=== PATIENT | female | born 1955 | race Caucasian/White ===

== ENCOUNTER → 2019-08-13 12:19 | Outpatient (BNVA) | payer MEDICARE, MEDICAID, SELFPAY | PROVIDERS: Visit Provider Psychiatry & Neurology Psychiatry | DX: E63.9 Nutritional deficiency, unspecified (principal); G47.00 Insomnia, unspecified; F39 Unspecified mood [affective] disorder; G43.709 Chronic migraine without aura, not intractable, without status migrainosus; F51.04 Psychophysiologic insomnia; F33.1 Major depressive disorder, recurrent, moderate; F51.01 Primary insomnia; F41.9 Anxiety disorder, unspecified; F09 Unspecified mental disorder due to known physiological condition; F41.1 Generalized anxiety disorder | CPT/HCPCS: 99205 ==

== ENCOUNTER 2019-08-16 17:21 | Inpatient (IN) | payer MEDICARE, MEDICAID, SELFPAY ==
[2019-08-16 17:22] VITALS: BMI 31.8
[2019-08-16 17:27] VITALS: BP 129/70; PULSE 96; RESP 16; TEMP 36.8; O2SAT 99
--- NOTE | 2019-08-16 17:33 | W.ED.CHESTPA ---
Documented by User: Ru White DO 08/16/19 17:35 HPI - Chest Pain General: Chief Complaint: Chest Pain Stated Complaint: CHEST PAIN Time Seen by Provider: 08/16/19 17:23 History of Present Illness: MD complaint: chest pain and chest heaviness Pertinent past history: coronary artery disease Onset (ago): hour(s) Timing of current episode: constant and now resolved Prior episodes: Yes Onset: during rest Pain location: substernal and left chest Pain radiation: left arm and back Quality: tightness, aching and heaviness Exacerbating factors: nothing Associated symptoms: Reports diaphoresis, dyspnea and nausea Treatment prior to arrival: other (ibuprofen) Review of Systems General: Reports: 10 or more systems reviewed and unremarkable except in HPI and below Const: Reports: diaphoresis Card: Reports: chest pain Resp: Reports: dyspnea GI: Reports: nausea PFSH ED PFSH: Medical History Tachycardia Surgical History H/O section x2 H/O rotator cuff surgery Previous back surgery L4-L5 Family History Father Dementia Stroke Social History Smoking and tobacco status: former smoker Second hand smoke exposure: No Alcohol intake: current Alcohol intake frequency: holidays/special occasions only Desire information about alcohol rehabilitation?: No Desire information about substance/drug rehabilitation?: No History of recent travel: No (moved from [place] in 04/2019) Current gender identity: Female Physical Exam Const: COMMON NORMALS: no acute distress, patient oriented x3 and alert HENMT: COMMON NORMALS: normocephalic and atraumatic HEAD & SCALP: normocephalic and atraumatic Neck/C-Spine: COMMON NORMALS: no JVD Resp: COMMON NORMALS: normal respiratory effort, No retractions, No use of accessory muscles and clear to auscultation bilaterally AUSCULTATION: clear to auscultation bilaterally Cardio: COMMON NORMALS: no JVD, regular rate and regular rhythm JUGULAR VENOUS DISTENTION: no JVD RATE: regular rate RHYTHM: regular rhythm GI: COMMON NORMALS: Normal to inspection, nondistended, normoactive bowel sounds present Extremity: COMMON NORMALS: normal to inspection, full ROM and no pedal edema Neuro: COMMON NORMALS: patient oriented x3 SENSORIUM/ORIENTATION: Yes alert Skin: COMMON NORMALS: no rashes or lesions noted, no wounds, turgor normal, no jaundice, no petechiae and no mottling GENERAL SKIN EXAM: no rashes or lesions noted and turgor normal Course Vital Signs: Vital signs: Vital Signs Temperature 98.2 F 08/16/19 17:27 Pulse Rate 98 08/16/19 19:05 Respiratory Rate 16 08/16/19 19:05 Blood Pressure 100/64 08/16/19 19:05 Pulse Oximetry 97 08/16/19 19:05 MDM - Chest Pain Lab Data: Labs: Lab Results 08/16/19 08/16/19 08/16/19 Range/Units 18:25 18:25 18:25 WBC 10.6 H (4.0-10.0) 10^3/ uL RBC 4.83 (4.1-5.3) 10^6/u L Hgb 14.6 (11.5-15.3) g/dL Hct 43.9 (37.0-47.0) % MCV 90.9 (81-99) fL MCH 30.2 (28.0-34.0) pg MCHC 33.3 (30.0-36.0) g/dL RDW 12.6 (12.1-15.1) % Plt Count 375 (130-400) 10^3/c mm MPV 9.0 (7.4-10.4) fL Neut % (Auto) 59.4 % Lymph % (Auto) 33.9 % [place] % (Auto) 4.8 % Eos % (Auto) 1.1 % Baso % (Auto) 0.5 % Neut # (Auto) 6.3 (1.8-7.7) 10^3/u L Lymph # (Auto) 3.6 (0.8-4.8) 10^3/u L [place] # (Auto) 0.5 (0.2-0.9) 10^3/u L Eos # (Auto) 0.1 (0.0-0.8) 10^3/u L Baso # (Auto) 0.1 (0.0-0.1) 10^3/u L Nucleated RBC % (a uto) 0 % Nucleated RBCs # 0.0 /100WBC PT 13.00 (10.5-13.3) SECO NDS INR 0.96 (0.8-1.2) D-Dimer (0-0.59) ug/mIFE U Sodium 141 (136-145) mmol/L Potassium 4.0 (3.5-5.1) mmol/L Chloride 99 (98-107) mmol/L Carbon Dioxide 29 (22-29) mmol/L Anion Gap 17.0 (5-19) BUN 15 (8-23) mg/dL Creatinine 0.8 (0.5-0.9) mg/dL GFR Calculation 72.0 L (90-130) mL/min Glucose 134 H (65-115) mg/dL Calculated Osmolal ity 290 (285-295) mOsm/k g Calcium 9.6 (8.5-10.5) mg/dL Total Bilirubin 0.2 (0.15-1.2) mg/dL AST 21 (0-32) U/L ALT 23 (0-33) U/L Alkaline Phosphata se 106 H (35-105) IU/L Troponin T Baselin e (0-10) ng/mL Troponin T 120 Min [place] (0-10) ng/mL Delta Troponin T (0-10) ABS# NT-Pro-B Natriuret Pep 117 (0-125) pg/mL Total Protein 7.1 (6.6-8.7) g/dL Albumin 4.4 (3.5-5.2) g/dL Globulin 2.7 (1.3-4.6) g/dL Lipase 24 (13-60) U/L Urine Color (Yellow) Urine Appearance (CLEAR) Urine pH (5-7) Ur Specific Gravit y (1.005-1.030) Urine Protein (Negative) Urine Glucose (UA) (Normal) Urine Ketones (Negative) Urine Blood (Negative) Urine Nitrate (Negative) Urine Bilirubin (NEGATIVE) Urine Urobilinogen (Negative) mg/dL Ur Leukocyte Blossom ase (Negative) Urine RBC (0-2) /hpf Urine WBC (0-5) /hpf Ur Squamous Epith Cells (0-5) Ur Transition Epit h Cell /hpf Calcium Oxalate Cr ystal /hpf Urine Bacteria (NONE) Urine Mucus 08/16/19 08/16/19 08/16/19 Range/Units 18:25 18:25 18:43 WBC (4.0-10.0) 10^3/ uL RBC (4.1-5.3) 10^6/u L Hgb (11.5-15.3) g/dL Hct (37.0-47.0) % MCV (81-99) fL MCH (28.0-34.0) pg MCHC (30.0-36.0) g/dL RDW (12.1-15.1) % Plt Count (130-400) 10^3/c mm MPV (7.4-10.4) fL Neut % (Auto) % Lymph % (Auto) % [place] % (Auto) % Eos % (Auto) % Baso % (Auto) % Neut # (Auto) (1.8-7.7) 10^3/u L Lymph # (Auto) (0.8-4.8) 10^3/u L [place] # (Auto) (0.2-0.9) 10^3/u L Eos # (Auto) (0.0-0.8) 10^3/u L Baso # (Auto) (0.0-0.1) 10^3/u L Nucleated RBC % (a uto) % Nucleated RBCs # /100WBC PT (10.5-13.3) SECO NDS INR (0.8-1.2) D-Dimer 0.47 (0-0.59) ug/mIFE U Sodium (136-145) mmol/L Potassium (3.5-5.1) mmol/L Chloride (98-107) mmol/L Carbon Dioxide (22-29) mmol/L Anion Gap (5-19) BUN (8-23) mg/dL Creatinine (0.5-0.9) mg/dL GFR Calculation (90-130) mL/min Glucose (65-115) mg/dL Calculated Osmolal ity (285-295) mOsm/k g Calcium (8.5-10.5) mg/dL Total Bilirubin (0.15-1.2) mg/dL AST (0-32) U/L ALT (0-33) U/L Alkaline Phosphata se (35-105) IU/L Troponin T Baselin e 35 H (0-10) ng/mL Troponin T 120 Min [place] (0-10) ng/mL Delta Troponin T (0-10) ABS# NT-Pro-B Natriuret Pep (0-125) pg/mL Total Protein (6.6-8.7) g/dL Albumin (3.5-5.2) g/dL Globulin (1.3-4.6) g/dL Lipase (13-60) U/L Urine Color Yellow (Yellow) Urine Appearance Cloudy (CLEAR) Urine pH 5 (5-7) Ur Specific Gravit y 1.025 (1.005-1.030) Urine Protein 1+ H (Negative) Urine Glucose (UA) Norm (Normal) Urine Ketones 1+ H (Negative) Urine Blood 3+ H (Negative) Urine Nitrate Positive H (Negative) Urine Bilirubin Neg (NEGATIVE) Urine Urobilinogen Norm (Negative) mg/dL Ur Leukocyte Blossom ase 2+ H (Negative) Urine RBC 0-4 H (0-2) /hpf Urine WBC Too numerous to c nt H (0-5) /hpf Ur Squamous Epith Cells 5-10 H (0-5) Ur Transition Epit h Cell 0-4 /hpf Calcium Oxalate Cr ystal 0-4 H /hpf Urine Bacteria 2+ H (NONE) Urine Mucus Trace 08/16/19 Range/Units 20:11 WBC (4.0-10.0) 10^3/ uL RBC (4.1-5.3) 10^6/u L Hgb (11.5-15.3) g/dL Hct (37.0-47.0) % MCV (81-99) fL MCH (28.0-34.0) pg MCHC (30.0-36.0) g/dL RDW (12.1-15.1) % Plt Count (130-400) 10^3/c mm MPV (7.4-10.4) fL Neut % (Auto) % Lymph % (Auto) % [place] % (Auto) % Eos % (Auto) % Baso % (Auto) % Neut # (Auto) (1.8-7.7) 10^3/u L Lymph # (Auto) (0.8-4.8) 10^3/u L [place] # (Auto) (0.2-0.9) 10^3/u L Eos # (Auto) (0.0-0.8) 10^3/u L Baso # (Auto) (0.0-0.1) 10^3/u L Nucleated RBC % (a uto) % Nucleated RBCs # /100WBC PT (10.5-13.3) SECO NDS INR (0.8-1.2) D-Dimer (0-0.59) ug/mIFE U Sodium (136-145) mmol/L Potassium (3.5-5.1) mmol/L Chloride (98-107) mmol/L Carbon Dioxide (22-29) mmol/L Anion Gap (5-19) BUN (8-23) mg/dL Creatinine (0.5-0.9) mg/dL GFR Calculation (90-130) mL/min Glucose (65-115) mg/dL Calculated Osmolal ity (285-295) mOsm/k g Calcium (8.5-10.5) mg/dL Total Bilirubin (0.15-1.2) mg/dL AST (0-32) U/L ALT (0-33) U/L Alkaline Phosphata se (35-105) IU/L Troponin T Baselin e (0-10) ng/mL Troponin T 120 Min [place] 62.73 H (0-10) ng/mL Delta Troponin T 27.73 H* (0-10) ABS# NT-Pro-B Natriuret Pep (0-125) pg/mL Total Protein (6.6-8.7) g/dL Albumin (3.5-5.2) g/dL Globulin (1.3-4.6) g/dL Lipase (13-60) U/L Urine Color (Yellow) Urine Appearance (CLEAR) Urine pH (5-7) Ur Specific Gravit y (1.005-1.030) Urine Protein (Negative) Urine Glucose (UA) (Normal) Urine Ketones (Negative) Urine Blood (Negative) Urine Nitrate (Negative) Urine Bilirubin (NEGATIVE) Urine Urobilinogen (Negative) mg/dL Ur Leukocyte Blossom ase (Negative) Urine RBC (0-2) /hpf Urine WBC (0-5) /hpf Ur Squamous Epith Cells (0-5) Ur Transition Epit h Cell /hpf Calcium Oxalate Cr ystal /hpf Urine Bacteria (NONE) Urine Mucus Discharge Plan Discharge Patient Disposition: Admitted As Inpatient Clinical Impression: Non-STEMI (non-ST elevated myocardial infarction) Condition: Stable Prescriptions: No Action duloxetine 60 mg capsule,delayed release(DR/EC) 60 mg PO DAILY 90 Days Qty: 90 RF: 1 metoprolol succinate 25 mg tablet extended release 24 hr 25 mg PO DAILY 90 Days Qty: 90 RF: 1 amitriptyline 25 mg tablet 25 mg PO DAILY 90 Days Qty: 90 RF: 1 Sign Out Sign Out Data: Patient Sign Out occurred on 08/16/19 at 18:12. Patient's care was discussed, and care was transferred from to Janell Nj. Coding Level of Care Code ED Claim Examiner for Chg Fwd Exam Comprehensive Documented by User: Janell Nj 08/16/19 21:07 HPI - Chest Pain General: Chief Complaint: Chest Pain Stated Complaint: CHEST PAIN Time Seen by Provider: 08/16/19 17:23 [facility] ED PFSH: Medical History Tachycardia Surgical History H/O section x2 H/O rotator cuff surgery Previous back surgery L4-L5 Family History Father Dementia Stroke Social History Smoking and tobacco status: former smoker Second hand smoke exposure: No Alcohol intake: current Alcohol intake frequency: holidays/special occasions only Desire information about alcohol rehabilitation?: No Desire information about substance/drug rehabilitation?: No History of recent travel: No (moved from [place] in 04/2019) Current gender identity: Female Course Vital Signs: Vital signs: Vital Signs Temperature 98.2 F 08/16/19 17:27 Pulse Rate 98 08/16/19 19:05 Respiratory Rate 16 08/16/19 19:05 Blood Pressure 100/64 08/16/19 19:05 Pulse Oximetry 97 08/16/19 19:05 MDM - Chest Pain MDM Narrative: Medical decision making narrative: 1916 -Case turned over to me from Dr. Gonzalez at change of shift. Please see his note for his history, physical exam and medical decision-making notes. Patient states that today she had chest pain that was described as rapid uncomfortable palpitations with a dull ache at that time. Her heartbeat was beating fast. Patient had similar symptoms in 2012 and was extensively worked up but no cause could be found and she was diagnosed with tachycardia. She is not familiar with a term atrial fibrillation, ventricular tachycardia, SVT, Iconl-Dongppnoq-Gnvlp or other type of arrhythmia. Patient denies any aggravating or alleviating factors during this episode. She is had no leg pain or swelling and has no history of DVT or PE. Admit -Mrs. Chi has had a positive delta in her troponin. This rules her in for a non-STEMI. The case was reviewed with Dr. Huerta and Dr. Rodriguez and they will admit and consult respectively. Lab Data: Labs: Lab Results 08/16/19 08/16/19 08/16/19 Range/Units 18:25 18:25 18:25 WBC 10.6 H (4.0-10.0) 10^3/ uL RBC 4.83 (4.1-5.3) 10^6/u L Hgb 14.6 (11.5-15.3) g/dL Hct 43.9 (37.0-47.0) % MCV 90.9 (81-99) fL MCH 30.2 (28.0-34.0) pg MCHC 33.3 (30.0-36.0) g/dL RDW 12.6 (12.1-15.1) % Plt Count 375 (130-400) 10^3/c mm MPV 9.0 (7.4-10.4) fL Neut % (Auto) 59.4 % Lymph % (Auto) 33.9 % [place] % (Auto) 4.8 % Eos % (Auto) 1.1 % Baso % (Auto) 0.5 % Neut # (Auto) 6.3 (1.8-7.7) 10^3/u L Lymph # (Auto) 3.6 (0.8-4.8) 10^3/u L [place] # (Auto) 0.5 (0.2-0.9) 10^3/u L Eos # (Auto) 0.1 (0.0-0.8) 10^3/u L Baso # (Auto) 0.1 (0.0-0.1) 10^3/u L Nucleated RBC % (a uto) 0 % Nucleated RBCs # 0.0 /100WBC PT 13.00 (10.5-13.3) SECO NDS INR 0.96 (0.8-1.2) D-Dimer (0-0.59) ug/mIFE U Sodium 141 (136-145) mmol/L Potassium 4.0 (3.5-5.1) mmol/L Chloride 99 (98-107) mmol/L Carbon Dioxide 29 (22-29) mmol/L Anion Gap 17.0 (5-19) BUN 15 (8-23) mg/dL Creatinine 0.8 (0.5-0.9) mg/dL GFR Calculation 72.0 L (90-130) mL/min Glucose 134 H (65-115) mg/dL Calculated Osmolal ity 290 (285-295) mOsm/k g Calcium 9.6 (8.5-10.5) mg/dL Total Bilirubin 0.2 (0.15-1.2) mg/dL AST 21 (0-32) U/L ALT 23 (0-33) U/L Alkaline Phosphata se 106 H (35-105) IU/L Troponin T Baselin e (0-10) ng/mL Troponin T 120 Min [place] (0-10) ng/mL Delta Troponin T (0-10) ABS# NT-Pro-B Natriuret Pep 117 (0-125) pg/mL Total Protein 7.1 (6.6-8.7) g/dL Albumin 4.4 (3.5-5.2) g/dL Globulin 2.7 (1.3-4.6) g/dL Lipase 24 (13-60) U/L Urine Color (Yellow) Urine Appearance (CLEAR) Urine pH (5-7) Ur Specific Gravit y (1.005-1.030) Urine Protein (Negative) Urine Glucose (UA) (Normal) Urine Ketones (Negative) Urine Blood (Negative) Urine Nitrate (Negative) Urine Bilirubin (NEGATIVE) Urine Urobilinogen (Negative) mg/dL Ur Leukocyte Blossom ase (Negative) Urine RBC (0-2) /hpf Urine WBC (0-5) /hpf Ur Squamous Epith Cells (0-5) Ur Transition Epit h Cell /hpf Calcium Oxalate Cr ystal /hpf Urine Bacteria (NONE) Urine Mucus 08/16/19 08/16/19 08/16/19 Range/Units 18:25 18:25 18:43 WBC (4.0-10.0) 10^3/ uL RBC (4.1-5.3) 10^6/u L Hgb (11.5-15.3) g/dL Hct (37.0-47.0) % MCV (81-99) fL MCH (28.0-34.0) pg MCHC (30.0-36.0) g/dL RDW (12.1-15.1) % Plt Count (130-400) 10^3/c mm MPV (7.4-10.4) fL Neut % (Auto) % Lymph % (Auto) % [place] % (Auto) % Eos % (Auto) % Baso % (Auto) % Neut # (Auto) (1.8-7.7) 10^3/u L Lymph # (Auto) (0.8-4.8) 10^3/u L [place] # (Auto) (0.2-0.9) 10^3/u L Eos # (Auto) (0.0-0.8) 10^3/u L Baso # (Auto) (0.0-0.1) 10^3/u L Nucleated RBC % (a uto) % Nucleated RBCs # /100WBC PT (10.5-13.3) SECO NDS INR (0.8-1.2) D-Dimer 0.47 (0-0.59) ug/mIFE U Sodium (136-145) mmol/L Potassium (3.5-5.1) mmol/L Chloride (98-107) mmol/L Carbon Dioxide (22-29) mmol/L Anion Gap (5-19) BUN (8-23) mg/dL Creatinine (0.5-0.9) mg/dL GFR Calculation (90-130) mL/min Glucose (65-115) mg/dL Calculated Osmolal ity (285-295) mOsm/k g Calcium (8.5-10.5) mg/dL Total Bilirubin (0.15-1.2) mg/dL AST (0-32) U/L ALT (0-33) U/L Alkaline Phosphata se (35-105) IU/L Troponin T Baselin e 35 H (0-10) ng/mL Troponin T 120 Min [place] (0-10) ng/mL Delta Troponin T (0-10) ABS# NT-Pro-B Natriuret Pep (0-125) pg/mL Total Protein (6.6-8.7) g/dL Albumin (3.5-5.2) g/dL Globulin (1.3-4.6) g/dL Lipase (13-60) U/L Urine Color Yellow (Yellow) Urine Appearance Cloudy (CLEAR) Urine pH 5 (5-7) Ur Specific Gravit y 1.025 (1.005-1.030) Urine Protein 1+ H (Negative) Urine Glucose (UA) Norm (Normal) Urine Ketones 1+ H (Negative) Urine Blood 3+ H (Negative) Urine Nitrate Positive H (Negative) Urine Bilirubin Neg (NEGATIVE) Urine Urobilinogen Norm (Negative) mg/dL Ur Leukocyte Blossom ase 2+ H (Negative) Urine RBC 0-4 H (0-2) /hpf Urine WBC Too numerous to c nt H (0-5) /hpf Ur Squamous Epith Cells 5-10 H (0-5) Ur Transition Epit h Cell 0-4 /hpf Calcium Oxalate Cr ystal 0-4 H /hpf Urine Bacteria 2+ H (NONE) Urine Mucus Trace 05/17/20 Range/Units 20:11 WBC (4.0-10.0) 10^3/ uL RBC (4.1-5.3) 10^6/u L Hgb (11.5-15.3) g/dL Hct (37.0-47.0) % MCV (81-99) fL MCH (28.0-34.0) pg MCHC (30.0-36.0) g/dL RDW (12.1-15.1) % Plt Count (130-400) 10^3/c mm MPV (7.4-10.4) fL Neut % (Auto) % Lymph % (Auto) % [place] % (Auto) % Eos % (Auto) % Baso % (Auto) % Neut # (Auto) (1.8-7.7) 10^3/u L Lymph # (Auto) (0.8-4.8) 10^3/u L [place] # (Auto) (0.2-0.9) 10^3/u L Eos # (Auto) (0.0-0.8) 10^3/u L Baso # (Auto) (0.0-0.1) 10^3/u L Nucleated RBC % (a uto) % Nucleated RBCs # /100WBC PT (10.5-13.3) SECO NDS INR (0.8-1.2) D-Dimer (0-0.59) ug/mIFE U Sodium (136-145) mmol/L Potassium (3.5-5.1) mmol/L Chloride (98-107) mmol/L Carbon Dioxide (22-29) mmol/L Anion Gap (5-19) BUN (8-23) mg/dL Creatinine (0.5-0.9) mg/dL GFR Calculation (90-130) mL/min Glucose (65-115) mg/dL Calculated Osmolal ity (285-295) mOsm/k g Calcium (8.5-10.5) mg/dL Total Bilirubin (0.15-1.2) mg/dL AST (0-32) U/L ALT (0-33) U/L Alkaline Phosphata se (35-105) IU/L Troponin T Baselin e (0-10) ng/mL Troponin T 120 Min [place] 62.73 H (0-10) ng/mL Delta Troponin T 27.73 H* (0-10) ABS# NT-Pro-B Natriuret Pep (0-125) pg/mL Total Protein (6.6-8.7) g/dL Albumin (3.5-5.2) g/dL Globulin (1.3-4.6) g/dL Lipase (13-60) U/L Urine Color (Yellow) Urine Appearance (CLEAR) Urine pH (5-7) Ur Specific Gravit y (1.005-1.030) Urine Protein (Negative) Urine Glucose (UA) (Normal) Urine Ketones (Negative) Urine Blood (Negative) Urine Nitrate (Negative) Urine Bilirubin (NEGATIVE) Urine Urobilinogen (Negative) mg/dL Ur Leukocyte Blossom ase (Negative) Urine RBC (0-2) /hpf Urine WBC (0-5) /hpf Ur Squamous Epith Cells (0-5) Ur Transition Epit h Cell /hpf Calcium Oxalate Cr ystal /hpf Urine Bacteria (NONE) Urine Mucus Imaging Data^: CXR: My impression: No acute cardiopulmonary findings. EKG Data^: EKG 1: Attestation: I personally reviewed and interpreted this EKG as follows: EKG interpretation date: 08/16/19 EKG interpretation time: 17:31 Interpretation: Sinus tachycardia at 103, left axis deviation, no acute ST or T wave changes. EKG 2: Attestation: I personally reviewed and interpreted this EKG as follows: EKG interpretation date: 08/16/19 EKG interpretation time: 19:51 Interpretation: Normal sinus rhythm at 90 beats a minute, left axis deviation, T wave inversions in V2. Discharge Plan Discharge Patient Disposition: Admitted As Inpatient Clinical Impression: Non-STEMI (non-ST elevated myocardial infarction) Condition: Stable Prescriptions: No Action duloxetine 60 mg capsule,delayed release(DR/EC) 60 mg PO DAILY 90 Days Qty: 90 RF: 1 metoprolol succinate 25 mg tablet extended release 24 hr 25 mg PO DAILY 90 Days Qty: 90 RF: 1 amitriptyline 25 mg tablet 25 mg PO DAILY 90 Days Qty: 90 RF: 1 Sign Out Sign Out Data: Patient Sign Out occurred on 08/16/19 at 18:12. Patient's care was discussed, and care was transferred from to [facility]. Coding Level of Care Code ED Claim Examiner for Chg Fwd Exam Comprehensive
--- NOTE | 2019-08-16 18:16 | XR_ITS ---
WS: [id number] Portable AP upright chest, 08/16/2019 Clinical Data: CP Comparison: None. Findings: No nodules, masses or effusions are seen. The heart is normal. The pulmonary vascularity is not increased. No pneumonia or pneumothorax is seen. There are surgical clips adjacent to the right shoulder. XR/XR chest 1V portable [id number] Impression: Negative chest.
--- NOTE | 2019-08-16 18:16 | ECG_ITS ---
Measurements Intervals [place] Rate: 90 P: 51 [place]: 146 QRS: -9 QRSD: 83 T: 38 QT: 358 QTc: 439 SINUS RHYTHM No previous ECG available for comparison Electronically Signed On 08-17-2019 19:52:05 CDT by Lorna Rodriguez M.D. [email or web address]
[2019-08-16 18:32] LABS: Basophils # 0.1 10^3/uL (0.0-0.1); Basophils % 0.5 %; Eosinophils # 0.1 10^3/uL (0.0-0.8); Eosinophils % 1.1 %; Hematocrit 43.9 % (37.0-47.0); Hemoglobin 14.6 g/dL (11.5-15.3); Lymphocytes # 3.6 10^3/uL (0.8-4.8); Lymphocytes % 33.9 %; Mean Corpuscular HGB Conc 33.3 g/dL (30.0-36.0); Mean Corpuscular Hemoglobin 30.2 pg (28.0-34.0); Mean Corpuscular Volume 90.9 fL (81-99); Monocytes # 0.5 10^3/uL (0.2-0.9); Monocytes % 4.8 %; Neutrophils # 6.3 10^3/uL (1.8-7.7); Neutrophils % 59.4 %; Nucleated Red Blood Cells % 0 %; Platelet Count 375 10^3/cmm (130-400); Red Blood Count 4.83 10^6/uL (4.1-5.3); Red Cell Distribution Width 12.6 % (12.1-15.1); White Blood Count 10.6 10^3/uL (4.0-10.0)
[2019-08-16 18:38] LABS: INR 0.96 (0.8-1.2)
[2019-08-16 18:46] LABS: Troponin(5th) Baseline 35 ng/mL (0-10)
[2019-08-16 18:50] VITALS: BP 98/78; PULSE 102; RESP 15; O2SAT 97
[2019-08-16 18:53] LABS: Alanine Aminotransferase 23 U/L (0-33); Albumin Level 4.4 g/dL (3.5-5.2); Alkaline Phosphatase 106 IU/L (35-105); Aspartate Amino Transferase 21 U/L (0-32); Blood Urea Nitrogen 15 mg/dL (8-23); Calcium 9.6 mg/dL (8.5-10.5); Carbon Dioxide 29 mmol/L (22-29); Chloride 99 mmol/L (98-107); Globulin 2.7 g/dL (1.3-4.6); Glucose 134 mg/dL (65-115); Lipase 24 U/L (13-60); NT Pro B Type Natriuretic Pept 117 pg/mL (0-125); Osmolality Calculated 290 mOsm/kg (285-295); Sodium 141 mmol/L (136-145); Total Bilirubin 0.2 mg/dL (0.15-1.2); Total Protein 7.1 g/dL (6.6-8.7)
[2019-08-16 19:05] VITALS: BP 100/64; PULSE 98; RESP 16; O2SAT 97
[2019-08-16 19:42] LABS: D Dimer 0.47 ug/mIFEU (0-0.59)
[2019-08-16 19:50] LABS: Add Urine Microscopic? YES; Bilirubin Urine Neg (NEGATIVE); Blood Urine 3+ (Negative); Glucose Urine UA Norm (Normal); Ketones Urine 1+ (Negative); Leukocyte Esterase Urine 2+ (Negative); Nitrate Urine Positive (Negative); Protein Urine 1+ (Negative); Specific Gravity, Urine 1.025 (1.005-1.030); Urine Appearance Cloudy (CLEAR); Urine Color Yellow (Yellow); Urobilinogen Urine Norm (Negative); pH Urine 5 (5-7)
[2019-08-16 19:53] LABS: Add Urine Culture? Yes; Bacteria Urine 2+; Calcium Oxalate Crystals Urine 0-4 /hpf; Mucus Urine TRACE; RBC Urine 0-4 /hpf (0-2); Transitional Epi Cells Urine 0-4 /hpf; WBC Urine TOO NUMEROUS TO CNT /hpf (0-5)
--- NOTE | 2019-08-16 20:16 | ECG_ITS ---
Measurements Intervals [place] Rate: 78 P: 45 [place]: 157 QRS: 1 QRSD: 90 T: 29 QT: 391 QTc: 445 SINUS RHYTHM LOW QRS VOLTAGE IN PRECORDIAL LEADS [QRS DEFLECTION < 1.0 mV IN CHEST LEADS] No previous ECG available for comparison Electronically Signed On 08-17-2019 20:21:20 CDT by Lorna Rodriguez M.D. [email or web address]
[2019-08-16 20:34] LABS: Troponin 5 2HR 62.73 ng/mL (0-10)
[2019-08-16 20:37] LABS: Troponin 5 2HR Delta 27.73 ABS# (0-10)
[2019-08-16] MEDS: cefTRIAXone 1,000 MG in sodium chloride 0.9% (plus) 50 ML 100 MG IV (20:57)
[2019-08-16] MEDS: sodium chloride 0.9% 500 ML 999 ML IV (20:57)
[2019-08-16 21:33] VITALS: BP 120/72; PULSE 63; RESP 16; O2SAT 99
[2019-08-16 21:36] VITALS: BP 113/71; PULSE 74; RESP 18; TEMP 36.6; O2SAT 99
--- NOTE | 2019-08-16 21:49 | PM.HP ---
Providers/Chief Complaint Admitting Physician: Cory Larios Chief Complaint: CHEST PAIN History of Present Illness Santa Chi is a 63 year old female with no past medical history of coronary artery disease who presents with complaint of chest pain which started around 1130 this morning. Lasted about 45 minutes and resolved by itself. It is described as pressure and pain, substernal, moderate intensity, no radiation. She also reports associated dizziness and palpitations. Denies shortness of breath, cough, loss of consciousness, fever or chills. Denies abdominal pain or dysuria. No diaphoresis. The patient reports similar pain in 2002 when she was told by her doctor that she had tachycardia. She does not remember specifically the type of arrhythmia she had. She denies any history of coronary artery disease. No history of hypertension or diabetes. She reports having history of depression which is currently well controlled. She reports family history of heart disease. She is a ex-smoker. Denies recreational drugs and excessive alcohol intake. Review of Systems General: Reports: 10 or more systems reviewed and unremarkable except in HPI and below Medications/Allergies Home Medications Medication Instructions Recorded Confirmed Last Taken Type duloxetine 60 mg capsule,delayed 60 mg PO DAILY 90 Days #90 cap 07/13/19 07/21/19 Unknown Rx release metoprolol succinate 25 mg 25 mg PO DAILY 90 Days #90 tab 07/13/19 07/21/19 Unknown Rx tablet,extended release 24 hr amitriptyline 25 mg tablet 25 mg PO DAILY 90 Days #90 tab 07/16/19 07/21/19 Unknown Rx Allergies Allergy/AdvReac Type Severity Reaction Status Date / Time morphine AdvReac Mild ADR-Abdominal Verified 08/16/19 17:30 pain PFSH Acute PFSH: Medical History Tachycardia Surgical History H/O section x2 H/O rotator cuff surgery Previous back surgery L4-L5 Family History Father Dementia Stroke Social History Smoking and tobacco status: former smoker Second hand smoke exposure: No Alcohol intake: current Alcohol intake frequency: holidays/special occasions only Desire information about alcohol rehabilitation?: No Desire information about substance/drug rehabilitation?: No History of recent travel: No (moved from [place] in 04/2019) Current gender identity: Female Vitals/I&O/Wt Last Vital Signs Temp 98.2 F 08/16/19 17:27 Pulse 63 08/16/19 21:33 Resp 16 08/16/19 21:33 BP 120/72 08/16/19 21:33 Pulse Ox 99 08/16/19 21:33 Weight last 48 hrs Weight 78.925 kg Physical Exam Narrative: EXAM NARRATIVE: The patient is currently awake alert and oriented x4. No acute distress. Mood and affect are appropriate. Responses are adequate. Skin is warm and dry. Moist mucous membranes. Eyes Corine, extraocular muscle intact. Normal speech. Neck supple. No JVD Lungs clear bilaterally. No respiratory distress Heart S1, S2, regular Abdomen soft, nontender, bowel sounds are present Extremities no edema cyanosis or calf tenderness bilaterally Neuro examination is nonfocal. Data : 08/16/19 18:25 08/16/19 18:25 Other Labs: Laboratory Results WBC 10.6 10^3/uL (4.0-10.0) H 08/16/19 18:25 RBC 4.83 10^6/uL (4.1-5.3) 08/16/19 18:25 Hgb 14.6 g/dL (11.5-15.3) 08/16/19 18:25 Hct 43.9 % (37.0-47.0) 08/16/19 18:25 MCV 90.9 fL (81-99) 08/16/19 18:25 MCH 30.2 pg (28.0-34.0) 08/16/19 18:25 MCHC 33.3 g/dL (30.0-36.0) 08/16/19 18:25 RDW 12.6 % (12.1-15.1) 08/16/19 18:25 Plt Count 375 10^3/cmm (130-400) 08/16/19 18:25 MPV 9.0 fL (7.4-10.4) 08/16/19 18:25 Neut % (Auto) 59.4 % 08/16/19 18:25 Lymph % (Auto) 33.9 % 08/16/19 18:25 [place] % (Auto) 4.8 % 08/16/19 18:25 Eos % (Auto) 1.1 % 08/16/19 18:25 Baso % (Auto) 0.5 % 08/16/19 18:25 Neut # (Auto) 6.3 10^3/uL (1.8-7.7) 08/16/19 18:25 Lymph # (Auto) 3.6 10^3/uL (0.8-4.8) 08/16/19 18:25 [place] # (Auto) 0.5 10^3/uL (0.2-0.9) 08/16/19 18:25 Eos # (Auto) 0.1 10^3/uL (0.0-0.8) 08/16/19 18:25 Baso # (Auto) 0.1 10^3/uL (0.0-0.1) 08/16/19 18:25 Nucleated RBC % (auto) 0 % 08/16/19 18:25 Nucleated RBCs # 0.0 /100WBC 08/16/19 18:25 PT 13.00 SECONDS (10.5-13.3) 08/16/19 18:25 INR 0.96 (0.8-1.2) 08/16/19 18:25 D-Dimer 0.47 ug/mIFEU (0-0.59) 08/16/19 18:25 Sodium 141 mmol/L (136-145) 08/16/19 18:25 Potassium 4.0 mmol/L (3.5-5.1) 08/16/19 18:25 Chloride 99 mmol/L (98-107) 08/16/19 18:25 Carbon Dioxide 29 mmol/L (22-29) 08/16/19 18:25 Anion Gap 17.0 (5-19) 08/16/19 18:25 BUN 15 mg/dL (8-23) 08/16/19 18:25 Creatinine 0.8 mg/dL (0.5-0.9) 08/16/19 18:25 GFR Calculation 72.0 mL/min (90-130) L 08/16/19 18:25 Glucose 134 mg/dL (65-115) H 08/16/19 18:25 Calculated Osmolality 290 mOsm/kg (285-295) 08/16/19 18:25 Calcium 9.6 mg/dL (8.5-10.5) 08/16/19 18:25 Total Bilirubin 0.2 mg/dL (0.15-1.2) 08/16/19 18:25 AST 21 U/L (0-32) 08/16/19 18:25 ALT 23 U/L (0-33) 08/16/19 18:25 Alkaline Phosphatase 106 IU/L (35-105) H 08/16/19 18:25 Troponin T Baseline 35 ng/mL (0-10) H 08/16/19 18:25 Troponin T 120 Minute 62.73 ng/mL (0-10) H 08/16/19 20:11 Delta Troponin T 27.73 ABS# (0-10) H* 08/16/19 20:11 NT-Pro-B Natriuret Pep 117 pg/mL (0-125) 08/16/19 18:25 Total Protein 7.1 g/dL (6.6-8.7) 08/16/19 18:25 Albumin 4.4 g/dL (3.5-5.2) 08/16/19 18:25 Globulin 2.7 g/dL (1.3-4.6) 08/16/19 18:25 Lipase 24 U/L (13-60) 08/16/19 18:25 Urine Color Yellow (Yellow) 08/16/19 18:43 Urine Appearance Cloudy (CLEAR) 08/16/19 18:43 Urine pH 5 (5-7) 08/16/19 18:43 Ur Specific [place] 1.025 (1.005-1.030) 08/16/19 18:43 Urine Protein 1+ (Negative) H 08/16/19 18:43 Urine Glucose (UA) Norm (Normal) 08/16/19 18:43 Urine Ketones 1+ (Negative) H 08/16/19 18:43 Urine Blood 3+ (Negative) H 08/16/19 18:43 Urine Nitrate Positive (Negative) H 08/16/19 18:43 Urine Bilirubin Neg (NEGATIVE) 08/16/19 18:43 Urine Urobilinogen Norm mg/dL (Negative) 08/16/19 18:43 Ur Leukocyte Esterase 2+ (Negative) H 08/16/19 18:43 Urine RBC 0-4 /hpf (0-2) H 08/16/19 18:43 Urine WBC Too numerous to cnt /hpf (0-5) H 08/16/19 18:43 Ur Squamous Epith Cells 5-10 (0-5) H 08/16/19 18:43 Ur Transition Epith Cell 0-4 /hpf 08/16/19 18:43 Calcium Oxalate Crystal 0-4 /hpf H 08/16/19 18:43 Urine Bacteria 2+ (NONE) H 08/16/19 18:43 Urine Mucus Trace 08/16/19 18:43 EKG. She has normal sinus rhythm. T wave inversion in septal leads. No ST elevation. Chest x-ray. Personally reviewed the picture. Based on my interpretation no acute findings. Please review official radiology report when it is available. A&P Additional A&P Information 63-year-old female with history of arrhythmia in the past who presents with chest pain. Has mild elevated troponin. EKG shows septal T wave inversion. Differential includes intermittent arrhythmia versus acute coronary syndrome. We will admit her to telemetry/MedSurg. No beds in stepdown unit. We will continue monitoring her troponin level and telemetry. We will continue aspirin, Lovenox, beta-zheng. Will add Lipitor. We will check her TSH. Urinary tract infection. Received Rocephin which we will continue. Will wait for the culture results. DVT prophylaxis. Lovenox. CODE STATUS. The patient wants to be DNR. I had a lengthy discussion with her regarding her wishes. She is very clear that she does not want any chest compressions, defibrillation, intubation or mechanical ventilation. She understands the concept of DNR. I informed her that she can change her mind at any point. She just needs to let us know. The plan of care was discussed with the patient. She verbalized understanding and agreement. Attestations Medical Necessity Statement*: Observation Coding Level of Care Code Acute Carpenters Supervisor for Major Strange
[2019-08-16] MEDS: enoxaparin 80 mg/0.8 mL Syringe SUBCUT (22:22)
[2019-08-16] MEDS: sodium chloride 0.9% 1,000 ML 75 ML IV (22:23)
[2019-08-16] MEDS: atorvastatin 40 mg Tablet PO (22:24)
[2019-08-16 22:31] LABS: Thyroid Stimulating Hormone 1.97 uIU/mL (0.27-4.20)
[2019-08-16 23:38] VITALS: BP 93/59; PULSE 78; RESP 18; TEMP 36.5; O2SAT 98
[2019-08-16] MEDS: amitriptyline 25 mg Tablet PO (23:45)
[2019-08-17] VITALS (11 sets, daily range): BP systolic 97–115; BP diastolic 58–78; PULSE 66–89; RESP 12–22; TEMP 36.4–36.6; O2SAT 94–98
--- NOTE | 2019-08-17 00:16 | ECG_ITS ---
Measurements Intervals [place] Rate: 78 P: 59 SC: 153 QRS: 52 QRSD: 107 T: 64 QT: 416 QTc: 477 SINUS RHYTHM No previous ECG available for comparison Electronically Signed On 08-17-2019 20:20:50 CDT by Lorna Rodriguez M.D. [email or web address]
[2019-08-17 00:57] LABS: Troponin 5 6HR 44.35 ng/mL (0-10); Troponin 5 6HR Delta 9.35 ng/L (0-12)
[2019-08-17 06:21] LABS: Basophils # 0.1 10^3/uL (0.0-0.1); Basophils % 0.5 %; Eosinophils # 0.2 10^3/uL (0.0-0.8); Eosinophils % 2.4 %; Hematocrit 39.2 % (37.0-47.0); Hemoglobin 12.7 g/dL (11.5-15.3); Mean Corpuscular HGB Conc 32.4 g/dL (30.0-36.0); Mean Corpuscular Hemoglobin 29.3 pg (28.0-34.0); Mean Corpuscular Volume 90.5 fL (81-99); Mean Platelet Volume 9.2 fL (7.4-10.4); Monocytes # 0.5 10^3/uL (0.2-0.9); Monocytes % 5.3 %; Neutrophils # 3.8 10^3/uL (1.8-7.7); Neutrophils % 39.5 %; Nucleated Red Blood Cells % 0 %; Platelet Count 349 10^3/cmm (130-400); Red Blood Count 4.33 10^6/uL (4.1-5.3); Red Cell Distribution Width 12.6 % (12.1-15.1); White Blood Count 9.6 10^3/uL (4.0-10.0)
[2019-08-17 06:35] LABS: Blood Urea Nitrogen 17 mg/dL (8-23); Calcium 9.3 mg/dL (8.5-10.5); Carbon Dioxide 26 mmol/L (22-29); Chloride 104 mmol/L (98-107); Glomerular Filtration Rate 100.3 mL/min (90-130); Glucose 100 mg/dL (65-115); Osmolality Calculated 288 mOsm/kg (285-295); Phosphorus 3.4 mg/dL (2.5-4.5); Sodium 141 mmol/L (136-145)
[2019-08-17 06:36] LABS: Chol HDL Ratio 4.13 mg/dL (0.0-4.40); Cholesterol 161 mg/dL (0-200); HDL Cholesterol 39 mg/dL (60-100); LDL Cholesterol Calculated 80 mg/dL (50-129); LDL HDL Ratio 2.05 RATIO (0.00-3.22); Triglycerides 210 mg/dL (0-150)
--- NOTE | 2019-08-17 07:49 | USCV_ITS ---
Santa Chi Age: 63 Gender: F : 1955 Exam Date: 08/17/2019 08:41 Ordering Phys: Lorna Rodriguez MD ([email or web address]) Technologist: Jono Chau Exam Location[place] [facility] [place]ication: NSTEMI BP: / HR: Rhythm: Sinus Technical Quality: Adequate MEASUREMENTS (Male / Female) Normal Values 2D ECHO LV Diastolic Diameter PLAX 3.5 cm 4.2 - 5.9 / 3.9 - 5.3 cm LV Systolic Diameter PLAX 2.1 cm IVS Diastolic Thickness 0.7 cm 0.6 - 1.0 / 0.6 - 0.9 cm IVS Systolic Thickness 1.2 cm LVPW Diastolic Thickness 1.0 cm 0.6 - 1.0 / 0.6 - 0.9 cm LVPW Systolic Thickness 1.3 cm LVOT Diameter 2.4 cm LV Ejection Fraction 2D Teich 71.7 % LV Ejection Fraction MOD 2C 50.7 % LV Ejection Fraction 2C AL 50.6 % LA Diameter 4.2 cm LA Width 3.8 cm LA Height 4.3 cm RA Width 3.5 cm RA Height 4.9 cm Aorta at Sinotubular Diameter 3.0 cm M-MODE LV Diastolic Diameter MM 4.4 cm 4.2 - 5.9 / 3.9 - 5.3 cm LV Systolic Diameter MM 2.7 cm LV Ejection Fraction MM Teich 70.7 % IVS Diastolic Thickness MM 0.8 cm 0.6 - 1.0 / 0.6 - 0.9 cm IVS Systolic Thickness MM 1.5 cm LVPW Diastolic Thickness MM 1.1 cm 0.6 - 1.0 / 0.6 - 0.9 cm LVPW Systolic Thickness MM 1.7 cm RV Diastolic Diameter MM 1.7 cm Aortic Annulus Diameter 3.9 cm LA Ao Ratio MM 1.1 MV E Point Septal Separation 0.8 cm DOPPLER AV Peak Velocity 108.0 cm/s LVOT Peak Velocity 77.0 cm/s AV Area Cont Eq vti 2.9 cm squared AV Area Cont Eq pk 3.3 cm squared MV Area PHT 5.0 cm squared Mitral E to A Ratio 0.8 MV E' Velocity 7.0 cm/s Mitral E to MV E' Ratio 12.0 Mitral E to LV E' Lateral Ratio 12.9 Mitral E to LV E' Septal Ratio 11.3 TR Peak Velocity 243.0 cm/s TR Peak Gradient 23.7 mmHg TV Peak E Velocity 101.0 cm/s Right Atrial Pressure 3.0 mmHg Pulmonary Artery Systolic Pressu 26.6 mmHg PV Peak Velocity 64.0 cm/s FINDINGS Left Ventricle Normal left ventricular size, systolic function and wall thickness, with no regional wall motion abnormalities. Left ventricular ejection fraction is estimated at 70 %. Normal diastolic function. Right Ventricle Normal right ventricular size and systolic function. Right ventricular systolic pressure 26.6 mmHg. Right Atrium Normal right atrial size. Left Atrium Normal left atrial size. Mitral Valve Structurally normal mitral valve. No mitral valve stenosis. Mild mitral valve regurgitation. Aortic Valve Structurally normal trileaflet aortic valve. No aortic valve stenosis. Mild aortic valve regurgitation. Tricuspid Valve Structurally normal tricuspid valve. No tricuspid valve stenosis. Trace tricuspid valve regurgitation. Pulmonic Valve Structurally normal pulmonic valve. No pulmonary valve stenosis. Trace pulmonary valve regurgitation. Pericardium No pericardial effusion. Aorta Normal aorta. CONCLUSIONS 1. Normal left ventricular size, systolic function and wall thickness, with no regional wall motion abnormalities. Left ventricular ejection fraction is estimated at 70 %. Normal diastolic function. 2. Normal right ventricular size and systolic function. 3. Mild mitral and aortic valve regurgitation. 4. Pulmonary artery pressure estimated at 27 mm Hg. 5. No prior similar studies to compare. Lorna Rodriguez MD (Electronically Signed) Final Date: 17 Aug 2019 21:15 S
[2019-08-17] MEDS: carvedilol 3.125 mg Tablet PO ×2 (08:08→18:03)
[2019-08-17] MEDS: clopidogrel 300 mg Tablet 600 MG PO (08:08)
[2019-08-17] MEDS: aspirin 325 mg Tablet PO (08:08)
--- NOTE | 2019-08-17 09:53 | PC.CHAP ---
Pastoral Care Encounter/Spiritual Assessment Type of Contact [] Declined director drug safety visit [] Patient/Family/Request visit [] Outpatient visit [] Follow-up visit [] Physician referral [] Code/Alert [x] Routine visit [] Staff referral [] Actively dying [] Patient sleeping [] Family support [] [] Out of room [] Palliative care [] [] Receiving care in room [] Pre-surgical visit [] Trauma [] Long length of stay [] ICU visit [] Other: Relational/Emotional Strength [] Patient feels connected with others/family/visitors/staff [] Distress [] Loneliness/isolation [] Abandonment Spirituality of Patient [] Person of Luann [] Attends Rastafarian of their Luann [] Believes in Prayer [] Reads Bible or Bahai materials [] There are Spiritual issues to be addressed Plant Operator Control Room Operator Interventions [x] Prayer [] Active listening [] Non-anxious presence [] Spiritual/emotional support [] Crisis/trauma care [] Spiritual counseling [] Bereavement support [] Provided bereavement packet [] Provided Bible/devotional materials [] Provided toy/stuffed animal, coloring book to patient or family member [] Provided Communion [] Anointing/[place] [] Salvation [x] Completed spiritual assessment [] Other: Impact on Illness or Injury [] Angry [] Fearful [] Anxious [] Often cries [] Exhaustion [] Unable to work [] Unable to attend pentecostalism [] Unable to walk/stand [] Unable to read [] Unable to drive [] Unable to eat/drink [] Unable to sleep [] Unable to be with family [] Patient intubated [] Other: Summary Patient new to the area. Has experienced issue before. 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 Time spent with patient 25 min
--- NOTE | 2019-08-17 10:01 | P.CONIM_ITS ---
Providers/Reason For Consult Consulting Physican/Specialty*: Dr. Rodriguez, cardiology Reason for Consult*: Non-ST elevation DC Attending Physician: Italo Mora History of Present Illness History of Present Illness Santa Chi is a 63 year old female with past medical history of unspecified tachycardia that was diagnosed in 2002, migraine, depression that is fairly controlled and family history of CAD (in paternal grandfather who young with a massive heart attack). She is a former smoker smoked half to 1 pack/day and quit smoking in 2005. She recently moved to the area from [place] about 2 months back. Her primary care physician is Dr. Rodgers. She was in her usual state of health until yesterday when she started having chest discomfort while she was helping her put together a fence. She was holding the fence gate. Pain described as pressure-like with intermittent sharp components with profuse sweating, shortness of breath and associated with tingling numbness in both her arms and forearms. She denies having any similar chest discomfort in the past. Her took her to [facility] where and she was evaluated and EMS was called. As per patient her heart rate was in 140s at the time. I do not have any EKGs or any vitals to support that. Her baseline troponin here on arrival was 35 which increased to 62 in 2 hours and 6 are troponin I was 44. Her EKG on arrival showed sinus rhythm normal axis with T wave inversion in lead V2. Second EKG with nonspecific T wave inversion in lead III. Third EKG with persistent T wave inversion in V2 but T wave inversion in lead III has normalized. Review of Systems General: Reports: 10 or more systems reviewed and unremarkable except in HPI and below Const: Denies: fever(s) or chills ENMT: Denies: nasal congestion or epistaxis Card: Reports: chest pain and palpitations; Denies: dyspnea on exertion Resp: Denies: dyspnea or productive cough GI: Denies: abdominal pain, nausea, vomiting, hematochezia or melena : Denies: hematuria Skin/Breast: Denies: rash Neuro: Denies: headache(s) or weakness in extremities Psych: Denies: anxiety or depression Marck/Lymph: Denies: petechiae or purpura All/Imm: Denies: facial swelling Meds/Allergies Home Medications and Allergies Home Medications Medication Instructions Recorded Confirmed Last Taken Type duloxetine 60 mg capsule,delayed 60 mg PO DAILY 90 Days #90 cap 07/13/19 08/16/19 08/16/19 Rx release 60 metoprolol succinate 25 mg 25 mg PO DAILY 90 Days #90 tab 07/13/19 08/16/19 08/16/19 Rx tablet,extended release 24 hr 25 amitriptyline 25 mg tablet 25 mg PO DAILY 90 Days #90 tab 07/16/19 08/16/19 08/15/19 Rx 25 Allergies Allergy/AdvReac Type Severity Reaction Status Date / Time morphine AdvReac Mild ADR-Abdominal Verified 08/16/19 17:30 pain Current Medications Current Medications Generic Name Dose Route Start Last Admin Trade Name Freq PRN Reason Stop Dose Admin Amitriptyline HCl 25 mg 08/16/19 23:45 08/16/19 23:45 Elavil PO 25 mg BEDTIME DEYSI Administration Aspirin 325 mg 08/17/19 09:00 08/17/19 08:08 Aspirin PO 325 mg DAILY DEYSI Administration Atorvastatin Calcium 40 mg 08/16/19 22:00 08/16/19 22:24 Lipitor PO 40 mg BEDTIME DEYSI Administration Carvedilol 3.125 mg 08/17/19 09:00 08/17/19 08:08 Coreg PO 3.125 mg BID DEYSI Administration Enoxaparin Sodium 80 mg 08/17/19 09:00 08/17/19 08:11 Lovenox 1 mg/kg (80 mg) Not Given SUBCUT Q12H DEYSI Sodium Chloride 1,000 mls @ 75 mls/hr 08/16/19 21:45 08/17/19 06:15 Sodium Chloride 0.9% IV 75 mls/hr .[id number] DEYSI Infusion PFSH Acute PFSH: Medical History Tachycardia Surgical History H/O section x2 H/O rotator cuff surgery Previous back surgery L4-L5 Family History Father Dementia Stroke Social History Smoking and tobacco status: former smoker Second hand smoke exposure: No Alcohol intake: current Alcohol intake frequency: holidays/special occasions only Desire information about alcohol rehabilitation?: No Desire information about substance/drug rehabilitation?: No History of recent travel: No (moved from [place] in 04/2019) Current gender identity: Female Vitals/I&O/Wt Last Vital Signs Temp 97.7 F 08/17/19 07:46 Pulse 73 08/17/19 07:46 Resp 18 08/17/19 07:46 BP 101/65 08/17/19 07:46 Pulse Ox 96 08/17/19 07:46 08/16/19 08/17/19 08/17/19 22:59 06:59 14:59 Intake Total 530 / 530 590 / 1120 Balance 530 / 530 590 / 1120 Weight last 48 hrs Weight 174 lb Physical Exam Const: COMMON NORMALS: no acute distress, patient oriented x3 and alert GENERAL APPEARANCE: cooperative, comfortable, well kempt and well hydrated HENMT: COMMON NORMALS: normocephalic, atraumatic, hearing grossly normal bilaterally, external ears normal, Normal external nose present and moist oral mucous membranes HEAD & SCALP: normocephalic and atraumatic FACE & SINUS: normal facial exam NOSE: Normal external nose present EXTERNAL EAR: Yes external ears normal Eye: COMMON NORMALS: Equal, round and reactive pupils present, EOMs intact bilaterally, conjunctivae normal and no scleral icterus GENERAL EYE: appearance normal, both eyes and all related structures PERIORBITAL: periorbital findings normal CONJUNCTIVA: Yes conjunctivae normal SCLERA: sclerae normal PUPIL: Yes Equal, round and reactive pupils present Neck/C-Spine: COMMON NORMALS: no lymphadenopathy, supple and no JVD GENERAL: Yes normal visual inspection CAROTIDS: Yes normal carotid upstroke Chest: COMMONS NORMALS: normal inspection of the chest and normal palpation of entire chest wall Resp: COMMON NORMALS: clear to auscultation bilaterally and percussion normal AUSCULTATION: clear to auscultation bilaterally, no crackles, no rales, no rhonchi, no wheezes and vesicular breath sounds PERCUSSION: percussion normal Cardio: COMMON NORMALS: no JVD, regular rate, regular rhythm, S1 normal heart sound present, S2 normal heart sound present and Peripheral pulses 2+ throughout PALPATION: normal PMI RATE: regular rate RHYTHM: regular rhythm HEART SOUNDS: S1 normal heart sound present, S2 normal heart sound present, no click, no gallops and no murmurs BRUITS: no carotid bruits and no renal bruits PERIPHERAL PULSES: Peripheral pulses 2+ throughout, radial pulses present, femoral pulses present, posterior tibial pulses present and dorsalis pedis present GI: COMMON NORMALS: Soft to palpation AUSCULTATION: Yes normoactive bowel sounds PALPATION: Yes Soft to palpation, No Tenderness to palpation present (GI), No Guarding due to palpation present (GI), No Rigid due to palpation and No Ascites present Extremity: GENERAL: No calf tenderness, No clubbing, No cyanosis, Yes edema and No pallor Neuro: COMMON NORMALS: patient oriented x3, CN's II-XII intact bilaterally, no focal motor deficits and no sensory deficits noted SENSORIUM/ORIENTATION: Yes alert Psych: COMMON NORMALS: Normal thought process present and speech normal APPEARANCE: Yes well kempt SPEECH: Yes normal speech MOOD & AFFECT: Yes euthymic mood THOUGHT PROCESS: Normal thought process present THOUGHT CONTENT: Yes Normal thought content present Skin: HAIR: normal NAILS: normal and no clubbing A&P Assessment and plan (1) Non-STEMI (non-ST elevated myocardial infarction): I will plan for [facility] with Dr. Bynum later today. -continue ASA, beta zheng and statin. -load with plavix and she had lovenox therapeutic dose last night. -Further management based on findings of the provedure. Status: Acute (2) Depression: Status: Acute Qualifiers: Active/Remission status: currently active Depression Type: major depressive disorder Major depression episode severity: moderate Major depression recurrence: recurrent Qualified Code(s): F33.1 - Major depressive disorder, recurrent, moderate (3) Anxiety: Status: Acute Additional A&P Information H/O unspecifed tachycardia Elevated alkaline phosphatase Former smoker Family h/o CAD Thank you for allowing me to participate in patient' care. Please feel free to call with questions or concerns. Consult Attestations Medical Necessity Statement: Needs hospital stay for chest pain Coding Level of Care Code Acute Garment Alteration Examiner for g Fwd Diagnoses Non-STEMI (non-ST elevated myocardial infarction) I21.4 Depression F33.1 Active/Remission status: currently active Depression Type: major depressive disorder Major depression episode severity: moderate Major depression recurrence: recurrent Anxiety F41.9
--- NOTE | 2019-08-17 10:01 | XACV_ITS ---
Exam Room: [facility] Ht: 157 cm Wt: 79 kg BSA: 1.89 m2 Gender: Female : 1955 Any Known Allergies: Morphine Exam Priority: Routine Procedure(s): Procedure Description: Diagnostic procedure Procedure Description: Left Heart Catheterization Procedure Description: Left ventriculography Procedure Description: Coronary Angiography Diagnostic Cath Status: Elective Diagnostic Findings Patient with no previous history of heart disease with somewhat atypical pain. Angiography recommended by Dr. Rodriguez. Coronary angiography reveals right coronary artery dominance. The coronary arteries are normal. Initially the procedure was attempted via the right radial artery. The artery was entered with a needle 3 times spasm prevented passage of the wire. The procedure was completed via the right common femoral artery. Interventional RX Recommendation: none Diagnostic RX Recommendation: none Ventriculography Ejection Fraction: 65.0 % Pressures Phase:Rest AO : 121 mmHg / 74 mmHg ( 83 mmHg ) @ 6:00:00 AM 99 mmHg / 61 mmHg ( 79 mmHg ) @ 6:01:00 AM 112 mmHg / 57 mmHg ( 80 mmHg ) @ 6:04:00 AM 113 mmHg / 57 mmHg ( 80 mmHg ) @ 6:04:00 AM LV : 114 mmHg / -10 mmHg / @ 6:03:00 AM 111 mmHg / -8 mmHg / @ 6:04:00 AM 112 mmHg / -9 mmHg / @ 6:04:00 AM Valves Phase:DefaultPhase AV : 0.0 mmHg @ 11:31:00 AM AV Mean Gradient: 0.0 mmHg @ 11:31:00 AM Clinical Evaluation EBL: 5mL-10mL Procedural Details Procedure Consent Obtained. Pre-Procedure Time Out. Identified patient by full name and date of as verbalized by the patient/guarantor. Does the consent match the physician's order: Yes. Accurate & Complete Informed Consent: Yes. Inpatient/Outpatient History & Physical on Chart: Yes. If H&P is completed, is and addenduem needed: Yes; If yes, is the addendum complete: N/A. Visualize and Verify Site with Patient/Guarantor: N/A. Relevant Radiology Images available: Yes. Pre-op teaching completed and patient verbalized understanding. The risks, benefits, and alternatives of sedation and/or procedure were discussed by physician. The patient agrees to continue. Procedure started. [facility] Clinical Fraility Score: 3: Managing Well. Pipe Organ Tuner And Repairer Indications: Suspected CAD. Chest Pain Symptom Assessment: Typical Angina Symptoms. Correct patient, site and procedure confirmed by cath team. Current diagnosis: Chest Pain. PERRLA. Strong, equal hand lecturer in marketing bilaterally. Lungs clear x 5 lobes. IV Site on Arrival: 18 gauge in the left anticubital. IV Fluids: 0.9% NaCl at KVO. 0 mL infused prior to research laboratory manager. Pre Procedural Pulses: right radial was 2+. Oxygen started at 2liters/min via nasal canula. right radial was prepped with chloroprep then draped in the usual sterile fashion. right groin was prepped with chloroprep then draped in the usual sterile fashion. Baseline sample Acquired. HR: 83 BPM. Patient's family unavailable due to hospital visitor policy. Physician arrived. Physician scrubbed in. Immediate Pre-Procedure Time Out. Correct Patient: Yes; Correct Procedure: Yes; Correct Site: Yes; Correct Patient Position: Yes; Correct Supplies: Yes; Dried Flammable Prep: Yes; Blood Products Available: N/A;. Lidocaine 1% infiltrated to the right radial. Unable to obtain radial access. MD attempting to gain access in the Femoral artery. Lidocaine 1% infiltrated to the right radial. Arterial access obtained. A 6 belarusian JL4 catheter in over wire. Multiple views taken of left coronary artery. Catheter out. A 6 belarusian JR4 catheter in over wire. Multiple views taken of right coronary artery. Catheter out. A 6 belarusian Angled Pig catheter in over wire. EDP Sample taken: LV 114/-11,15; HR: 87 BPM; SpO2: 98%. LV gram performed in GARCIA @ 10 mL/second for a total of 30 mL. EDP Sample taken: LV 111/-9,18; HR: 88 BPM; SpO2: 98%. Pullback taken: LV 112/-10,17; AO 112/57(80); Mean: 0mmHg, Peak to Peak: 0mmHg, SEP: 8sec/min; HR: 88 BPM; SpO2: 98%. Catheter out. Dr. Bynum scrubbed out. Sheath(s) removed and manual pressure held until hemostasis was achieved. Sterile 4x4 and Op-site applied to the puncture site. No oozing or hematoma noted. Post sheath removal instructions were given and the patient verbalized understanding. A Manual Compression was successful obtaining hemostatsis at the Right Femoral artery insertion site. PERRLA. Strong, equal hand lecturer in marketing bilaterally. No VTE prophylaxis required. Medication's Wasted: Heparin = 1000 units. Medication's Wasted: Verapamil = 5 mg. Medication's Wasted: Other = Versed 1 mg. Total IV fluids: 75 mL. Contrast type used: Omnipaque 300 mgI/mL, 500 mL bottle. Post-op diagnosis: Normal Coronaries. Complications: None. Estimated blood loss: 5mL-10mL. Vital chart was stopped. Procedure completed. Patient transferred by stretcher to CPRU. Site: Right Femoral artery Sheath Size: 6 Fr Hemostasis Method: Manual Compression Hemostasis Success: Successful Procedure Medications Start: 10:28 AM Stop: 10:28 AM Medication: Versed Amount: 1 mg Route: I.V. Start: 10:29 AM Stop: 10:29 AM Medication: Fentanyl Amount: 50 mcg Route: I.V. Start: 10:44 AM Stop: 10:44 AM Medication: Versed Amount: 1 mg Route: I.V. Start: 10:51 AM Stop: 10:51 AM Medication: Versed Amount: 1 mg Route: I.V. Start: 10:51 AM Stop: 10:51 AM Medication: Fentanyl Amount: 25 mcg Route: I.V. Start: 11:12 AM Stop: 11:12 AM Medication: Fentanyl Amount: 25 mcg Route: I.V. I, the attending physician, have reviewed and verified all procedure medications. Yes, all medications given per verbal order History/Risk Factors Hypertension: No Dyslipidemia: No Peripheral Arterial Disease (PAD): No Myocardial Infarction (NM): No Obesity: No Renal Disease: No Tobacco Use: Former Prior Interventions PCI: No CABG: No Valve Surgery: No Report Signatures Finalized by:Dr. Simba Bynum MD on 08/18/2019 7:28:03 AM
--- NOTE | 2019-08-17 11:30 | SUR.PHASEI ---
RECEIVED THE PATIENT FROM THE WIRE SAW OPERATOR S/P DIAGNOSTIC [facility]. PATIENT AWAKE AND ALERT BUT DROWSY. AWAKENS TO VERBAL STIMULI EASILY THEN FALLS BACK ASLEEP. RIGHT GROIN ARTERIAL ACCESS SITE STABLE WITH NO BLEEDING OR HEMATOMA NOTED. DRESSING DRY AND INTACT. THE PATIENT WITH NO CONCERNS VOICED AT THIS TIME. ENGINEER AND GEOLOGIST PLACED AND VITAL SIGNS OBTAINED. PIV TO THE LEFT AC PATENT AND INTACT. NS INFUSING AT 100 mL/HR. LUNGS CLEAR THROUGHOUT BILATERALLY. BS + X 4 QUADS. WILL CONTINUE TO MONITOR CLOSELY. WILL TRANSFER TO CSU BED ONCE AVAILABLE.
[2019-08-17] MEDS: sodium chloride 0.45% 1,000 ML 100 ML IV ×2 (12:02→22:38)
--- NOTE | 2019-08-17 12:15 | SUR.PHASEI ---
PATIENT REPOSITIONED FOR COMFORT. TYLENOL GIVEN FOR C/O HEADACHE AND RIGHT GROIN PAIN AT THE ACCESS SITE. NO OTHER CHANGES NOTED AT THIS TIME.
[2019-08-17] MEDS: acetaminophen 325 mg Tablet 650 MG PO ×2 (12:16→22:37)
--- NOTE | 2019-08-17 17:01 | PC.NURSE ---
received from cardiac seed laboratory technician at 1545.report received.pt is alert and awake.denies pain.sr on monitor.oriented to room environment.right groin with drsg dry and intact.no hematoma noted.right leg is warm to touch and with brisk capillary refill.palpable dp pulse noted.instructed in activity restrictions s/p femoral arterial sheath pull..and instructed to notify staff for any bleeding,pain,numbness or for any concerns at all.pt verb understanding of instructions
--- NOTE | 2019-08-17 20:23 | PM.PN ---
Subjective Subjective: Interval history: Doing well after coronary angiogram. Denies any chest pain. Denies any wrist or right groin discomfort. Vitals/I&O/Wt Last Vital Signs Temp 97.9 F 08/17/19 19:38 Pulse 89 08/17/19 19:38 Resp 22 H 08/17/19 19:38 BP 97/71 08/17/19 19:38 Pulse Ox 95 08/17/19 19:38 08/17/19 08/17/19 08/17/19 06:59 14:59 22:59 Intake Total 590 / 1120 Balance 590 / 1120 Weight last 48 hrs Weight 78.925 kg Physical Exam Const: COMMON NORMALS: no acute distress and patient oriented x3 HENMT: COMMON NORMALS: oropharynx normal Neck/C-Spine: COMMON NORMALS: no JVD Resp: COMMON NORMALS: normal respiratory effort and clear to auscultation bilaterally AUSCULTATION: clear to auscultation bilaterally Cardio: COMMON NORMALS: no JVD, regular rhythm, S1 normal heart sound present, S2 normal heart sound present and No murmurs present (Cardio) RHYTHM: regular rhythm HEART SOUNDS: S1 normal heart sound present and S2 normal heart sound present GI: COMMON NORMALS: Normal to inspection, nondistended, normoactive bowel sounds present, Soft to palpation and non-tender PALPATION: Yes Soft to palpation Extremity: COMMON NORMALS: no joint enlargement and no pedal edema OTHER: Right wrist covered by gauze, Coban, no swelling, no surrounding ecchymosis Right groin with gauze, Tegaderm dressing, no surrounding ecchymosis, no swelling or bleeding. Neuro: COMMON NORMALS: patient oriented x3 and moves all extremities Skin: COMMON NORMALS: no rashes or lesions noted GENERAL SKIN EXAM: no rashes or lesions noted Data : 08/17/19 05:53 08/17/19 05:53 A&P Assessment and plan (1) Non-STEMI (non-ST elevated myocardial infarction): She is doing well following LHC. No sign of ecchymosis, swelling or bleeding at the right wrist or right groin. Pending cardiology reassessment. Reassess renal function in the morning. Status: Acute Additional A&P Information UTI: Rocephin. Follow culture. Depression Anxiety History of tachycardia Minimal isolated alkaline phosphatase elevation: Would reassess level on outpatient basis Attestations Medical Necessity Statement*: Requiring admission of over 2 midnights for assessment management of non-STEMI Coding Level of Care Code Acute Advisor Advocate Angel Co Founder for Major Fwd Diagnoses Non-STEMI (non-ST elevated myocardial infarction) I21.4
[2019-08-17] MEDS: amitriptyline 25 mg Tablet PO (20:58)
[2019-08-17] MEDS: cefTRIAXone 1,000 MG in sodium chloride 0.9% (plus) 50 ML 100 MG IV (20:58)
[2019-08-17] MEDS: atorvastatin 40 mg Tablet PO (20:58)
--- NOTE | 2019-08-17 21:50 | PC.NURSE ---
Called counseling director honing machine operator tool (Dr. Gutierres) to verify order on 0.45 NS. Order says continuous with no stop time. Ordered to continue fluids as ordered.
[2019-08-18] VITALS: BP 115/63; PULSE 88; RESP 17; O2SAT 95
[2019-08-18 03:54] VITALS: BP 124/68; PULSE 75; RESP 22; TEMP 36.4; O2SAT 97
[2019-08-18 04:47] LABS: Alanine Aminotransferase 18 U/L (0-33); Albumin Level 3.7 g/dL (3.5-5.2); Alkaline Phosphatase 96 IU/L (35-105); Anion Gap 12.9 (5-19); Aspartate Amino Transferase 18 U/L (0-32); Blood Urea Nitrogen 15 mg/dL (8-23); Calcium 9.5 mg/dL (8.5-10.5); Carbon Dioxide 25 mmol/L (22-29); Chloride 95 mmol/L (98-107); Globulin 2.8 g/dL (1.3-4.6); Glucose 102 mg/dL (65-115); Osmolality Calculated 264 mOsm/kg (285-295); Potassium 3.9 mmol/L (3.5-5.1); Sodium 129 mmol/L (136-145); Total Bilirubin 0.4 mg/dL (0.15-1.2); Total Protein 6.5 g/dL (6.6-8.7)
--- NOTE | 2019-08-18 05:08 | PC.NURSE ---
Patient was offered a shower and stated I want to wait and take one when I go home tomorrow.
[2019-08-18 07:37] VITALS: BP 118/67; PULSE 80; RESP 20; TEMP 36.6; O2SAT 95
[2019-08-18] MEDS: carvedilol 3.125 mg Tablet PO (08:37)
[2019-08-18] MEDS: aspirin 325 mg Tablet PO (08:37)
[2019-08-18] MEDS: sodium chloride 0.45% 1,000 ML 100 ML IV (10:23)
[2019-08-18 10:51] VITALS: BP 123/68; PULSE 81; RESP 12; TEMP 36.5; O2SAT 94
[2019-08-18 11:21] VITALS: BP 123/68; PULSE 81; RESP 12; TEMP 36.5; O2SAT 94
--- NOTE | 2019-08-18 11:30 | PM.DCS ---
Discharge Providers Date of Admission: 08/17/19 20:28 Date of Discharge: August 18, 2019 Attending Provider at Admission: Cory Larios Attending Provider at Discharge: Italo Mora Primary Care Provider: DOCTOR NOT ON FILE Diagnoses at Discharge Discharge Diagnosis (1) Non-STEMI (non-ST elevated myocardial infarction): Status: Acute Reason for Visit Reason for Visit: Reason For Visit: CHEST PAIN Hospital Course Hospital Course: Pleasant 63-year-old lady was admitted for assessment management after chest pain symptoms, with additional assessment on presentation revealing non-STEMI, for which she was started on anticoagulation, continued on aspirin, zheng, started on statin, and subsequently loaded with Plavix. With UA concerning for urinary tract infection was treated with Rocephin. She underwent assessment by coronary angiography which did not reveal any significant coronary disease. She has remained symptom-free while in the hospital and is cleared for discharge by cardiology. Had no recurrence of episodes of chest pain, and had no issues with her breathing, no cough, with no noted tachycardia, no pleuritic discomfort, no heartburn, or other symptoms. It is not clear what the isolated episode may have been related to. Appears that there was some vasospasm noted on angiography. Possibly this may have been the cause. Due to this she will follow-up with cardiology in office for reassessment with regards to any recurrence of symptoms. She will continue metoprolol. She qualifies for statin based on her risk factors/ASCVD. A prescription for ciprofloxacin, additional 4 days to complete the course was called into the pharmacy, although per discussion with her final urine culture will need to be followed up with regards to ID and sensitivity of gram-negative rods. She was also given a refill on her metoprolol succinate as she states had run out at home. Physical Exam Const: COMMON NORMALS: no acute distress and patient oriented x3 HENMT: COMMON NORMALS: oropharynx normal Neck/C-Spine: COMMON NORMALS: no JVD Resp: COMMON NORMALS: normal respiratory effort and clear to auscultation bilaterally AUSCULTATION: clear to auscultation bilaterally Cardio: COMMON NORMALS: no JVD, regular rhythm, S1 normal heart sound present, S2 normal heart sound present and No murmurs present (Cardio) RHYTHM: regular rhythm HEART SOUNDS: S1 normal heart sound present and S2 normal heart sound present GI: COMMON NORMALS: Normal to inspection, nondistended, normoactive bowel sounds present, Soft to palpation and non-tender PALPATION: Yes Soft to palpation Extremity: COMMON NORMALS: no joint enlargement and no pedal edema OTHER: Right wrist no swelling, no surrounding ecchymosis Right groin without any issue. Neuro: COMMON NORMALS: patient oriented x3 and moves all extremities Skin: COMMON NORMALS: no rashes or lesions noted GENERAL SKIN EXAM: no rashes or lesions noted Discharge Data Data Completed and Pending: Completed Studies During Hospitalization Category Date Time Status PONY EDGER request for service Routin e Exams 08/17/19 10:01 Completed XR chest 1V suma ble [id number] Stat Exams 08/16/19 18:16 Completed CV echo complete* [id number] Routine Ultrasound 08/17/19 07:49 Completed Pending at discharge Category Date Time Status Basic Metabolic P tegan AM LABS Lab 08/19/19 04:00 Ordered Basic Metabolic P tegan AM LABS Lab 08/20/19 04:00 Ordered Comprehensive Met abolic Panel AM LA BS Lab 08/19/19 04:00 Ordered Comprehensive Met abolic Panel AM LA BS Lab 08/20/19 04:00 Ordered Hemoglobin A1C Ro utine Lab 08/18/19 10:52 Ordered Urine Culture Sta t Lab 08/16/19 18:43 Received Labs from last 24 hours 08/18/19 03:50 Sodium 129 L Potassium 3.9 Chloride 95 L Carbon Dioxide 25 Anion Gap 12.9 BUN 15 Creatinine 0.7 GFR Calculation 84.0 L Glucose 102 Calculated Osmolal ity 264 L Calcium 9.5 Total Bilirubin 0.4 AST 18 ALT 18 Alkaline Phosphata se 96 Total Protein 6.5 L Albumin 3.7 Globulin 2.8 Vitals: Last Vital Signs Temp 97.7 F 08/18/19 11:21 Pulse 81 08/18/19 11:21 Resp 12 08/18/19 11:21 BP 123/68 08/18/19 11:21 Pulse Ox 94 08/18/19 11:21 Discharge Plan Discharge Patient Disposition: Home, Self-Care Condition: Stable Prescriptions: New atorvastatin 20 mg tablet 20 mg PO DAILY Qty: 30 RF: 0 Continued duloxetine 60 mg capsule,delayed release(DR/EC) 60 mg PO DAILY 90 Days Qty: 90 RF: 1 metoprolol succinate 25 mg tablet extended release 24 hr 25 mg PO DAILY 90 Days Qty: 90 RF: 1 amitriptyline 25 mg tablet 25 mg PO DAILY 90 Days Qty: 90 RF: 1 Celexa 20 mg Tablet 20 mg PO DAILY RF: 0 Discharge Orders: Discharge Order (Routine); Ordered 08/18/19 Ordered By: Italo Mora Referrals: Lorna Rodriguez MD [Physician] - 09/15/19 10:45 am () Erica Rodgers MD [Physician] - 08/25/19 9:15 am Discharge Diet: Cardiac Discharge Activity: Increase activity as tolerated Patient Instructions: Atorvastatin (By mouth), Peripheral Vascular Angioplasty (DC), Chest Pain Stoplight, Post Angiogram Home Care Instructions Activity Restrictions/Additional Instructions: If you experience return of severe chest pain, non-resolving, or shortness of breath, or any other abnormal symptoms, please seek medical attention without delay. Please monitor your blood pressures at home 3 times daily, record values to bring to your appointment. The final urine culture on urinary tract infection is pending. This will need to be followed up. Please bring it up with your primary care provider in case you do not hear back. Discharge Date/Time: 08/18/19 13:55 Discharge Attestations Time Spent in Discharge Care*: greater than 30 min Quality Metrics Clinical Quality Measures During this hospital stay, did patient experience: None Coding Level of Care Code Acute Materials Planning Analyst for Kareeng Fwd Diagnoses Non-STEMI (non-ST elevated myocardial infarction) I21.4
--- NOTE | 2019-08-18 12:49 | PM.PN ---
Subjective Subjective: Interval history: She denies having any complaints overnight. No chest discomfort. She underwent coronary angiogram yesterday. Medications: Reviewed: Yes Medication Review Details: Current Medications Acetaminophen (Tylenol) 650 mg PO Q6H PRN PRN Reason: Mild/Mod Pain Or Temp >/= 101 Last Admin: 08/17/19 22:37 Dose: 650 mg Documented by: Amitriptyline HCl (Elavil) 25 mg PO BEDTIME [facility] Last Admin: 08/17/19 20:58 Dose: 25 mg Documented by: Aspirin (Aspirin) 325 mg PO DAILY [facility] Last Admin: 08/18/19 08:37 Dose: 325 mg Documented by: Atorvastatin Calcium (Lipitor) 40 mg PO BEDTIME [facility] Last Admin: 08/17/19 20:58 Dose: 40 mg Documented by: Carvedilol (Coreg) 3.125 mg PO BID [facility] Last Admin: 08/18/19 08:37 Dose: 3.125 mg Documented by: Ceftriaxone Sodium 1,000 mg/ (Sodium Chloride) 50 mls @ 100 mls/hr IV Q24H [facility]; Protocol Last Admin: 08/17/19 20:58 Dose: 100 mls/hr Documented by: Sodium Chloride (Sodium Chloride 0.45%) 1,000 mls @ 100 mls/hr IV .Q10H [facility] Last Admin: 08/18/19 10:23 Dose: 100 mls/hr Documented by: Nitroglycerin (Nitrostat) 0.4 mg SUBLINGUAL Q5M PRN PRN Reason: CHEST PAIN Ondansetron HCl (Zofran) 4 mg IVP Q6H PRN PRN Reason: NAUSEA AND VOMITING Vitals/I&O/Wt Last Vital Signs Temp 97.7 F 08/18/19 11:21 Pulse 81 08/18/19 11:21 Resp 12 08/18/19 11:21 BP 123/68 08/18/19 11:21 Pulse Ox 94 08/18/19 11:21 08/17/19 08/18/19 08/18/19 22:59 06:59 14:59 Intake Total 1000 / 1000 880 / 1880 1720 / 1720 Balance 1000 / 1000 880 / 1880 1720 / 1720 Weight last 48 hrs Weight 174 lb Physical Exam Const: COMMON NORMALS: no acute distress, patient oriented x3 and alert GENERAL APPEARANCE: cooperative, comfortable, well kempt and well hydrated HENMT: COMMON NORMALS: normocephalic, atraumatic, hearing grossly normal bilaterally and moist oral mucous membranes HEAD & SCALP: normocephalic and atraumatic Eye: COMMON NORMALS: Equal, round and reactive pupils present, EOMs intact bilaterally, conjunctivae normal and no scleral icterus CONJUNCTIVA: Yes conjunctivae normal SCLERA: sclerae normal PUPIL: Yes Equal, round and reactive pupils present Neck/C-Spine: COMMON NORMALS: supple and no JVD CAROTIDS: Yes normal carotid upstroke Resp: COMMON NORMALS: clear to auscultation bilaterally AUSCULTATION: clear to auscultation bilaterally, no crackles, no rales, no rhonchi, no wheezes and vesicular breath sounds Cardio: COMMON NORMALS: no JVD, regular rate, regular rhythm, S1 normal heart sound present, S2 normal heart sound present and Peripheral pulses 2+ throughout PALPATION: normal PMI RATE: regular rate RHYTHM: regular rhythm HEART SOUNDS: S1 normal heart sound present, S2 normal heart sound present, no click, no gallops and no murmurs BRUITS: no carotid bruits PERIPHERAL PULSES: Peripheral pulses 2+ throughout, radial pulses present, femoral pulses present, posterior tibial pulses present and dorsalis pedis present Extremity: GENERAL: No clubbing, No cyanosis, Yes edema and No pallor Neuro: COMMON NORMALS: patient oriented x3, CN's II-XII intact bilaterally and no focal motor deficits SENSORIUM/ORIENTATION: Yes alert Psych: COMMON NORMALS: Normal thought process present and speech normal APPEARANCE: Yes well kempt SPEECH: Yes normal speech MOOD & AFFECT: Yes euthymic mood THOUGHT PROCESS: Normal thought process present THOUGHT CONTENT: Yes Normal thought content present Data : 08/17/19 05:53 08/18/19 03:50 A&P Assessment and plan (1) Non-STEMI (non-ST elevated myocardial infarction): Patient had normal coronaries on coronary angiogram. -Patient's chest pain and description of tachycardia with the episode makes me wonder if her primary episode was tachycardia leading to troponin elevation. I do not have any EKG or telemetry strip to support that. -This episode was likely non-ST elevation PA type II. -No arrhythmia noted on telemetry while she has been in the hospital. -She was advised to keep blood pressure and heart rate log for next 2 weeks. Further changes based on the log. May have to consider event monitor if her symptoms recur. No recurrent episodes while she has been in the hospital. -Follow-up with me in 4 weeks. May be discharged home on metoprolol succinate 25 mg daily and atorvastatin. Status: Acute Additional A&P Information UTI Depression Anxiety History of tachycardia Minimal isolated alkaline phosphatase elevation Thank you allowing me to participate in patient's care. Please feel free with questions or concerns. Attestations Medical Necessity Statement*: Stable to be discharged home from cardiac standpoint. Coding Level of Care Code Acute Customer Acquisition Manager for Major Strange Diagnoses Non-STEMI (non-ST elevated myocardial infarction) I21.4
[2019-08-18 13:35] LABS: Estmated Average Glucose 143; Hemoglobin A1C 6.6 % (4.0-6.0)
== END 2019-08-18 13:55 | disposition home or self-care (01) | DRG 281 ==
LOC: ER 21:07 → MEDSURG 21:27 → CSU 08-17 15:52
PROVIDERS: Emergency Medicine; Internal Medicine Cardiovascular Disease; Absent Provider Internal Medicine Cardiovascular Disease; Admitting Provider Internal Medicine; Visit Provider Internal Medicine
PROC: 4A023N7 Measurement of Cardiac Sampling and Pressure, Left Heart, Percutaneous Approach (ICD-10-PCS; principal; 2019-08-17 11:00)
DX: I21.4 Non-ST elevation (NSTEMI) myocardial infarction (principal); F33.1 Major depressive disorder, recurrent, moderate; Z87.891 Personal history of nicotine dependence; Z66 Do not resuscitate; R74.8 Abnormal levels of other serum enzymes; F41.9 Anxiety disorder, unspecified; I73.9 Peripheral vascular disease, unspecified
CPT/HCPCS: 12345; 36415; 71045; 80048; 80053; 80061; 81001; 83036; 83690; 83735; 83880; 84100; 84443; 84484; 85025; 85378; 85610; 87077; 87086; 87186; 93005; 93306; 93452; 96372; 99283; C1887; C1894; G0378; J0696; J1644; J1650; J2001; J2250; J3010; J3490; J7030; J7040; Q9967

== ENCOUNTER → 2019-08-20 13:06 | Outpatient (BNVA) | payer MEDICARE, MEDICAID, SELFPAY | PROVIDERS: Visit Provider Family Medicine | DX: I25.10 Atherosclerotic heart disease of native coronary artery without angina pectoris (principal); Z09 Encounter for follow-up examination after completed treatment for conditions other than malignant neoplasm; F51.04 Psychophysiologic insomnia; G43.709 Chronic migraine without aura, not intractable, without status migrainosus; F33.1 Major depressive disorder, recurrent, moderate; E63.9 Nutritional deficiency, unspecified; G47.00 Insomnia, unspecified | CPT/HCPCS: 80053; 80061; 80307; 82306; 82525; 82607; 82746; 83735; 84439; 84443; 84481; 84630 ==

== ENCOUNTER 2019-10-27 06:00 | Outpatient (RCR) | payer MEDICARE, MEDICAID, SELFPAY | END 2019-10-30 23:59 | disposition home or self-care (01) | LOC: MPT 06:00 | PROVIDERS: PCP Family Medicine; Referring Provider Family Medicine; Visit Provider Family Medicine | DX: M54.31 Sciatica, right side (principal); Z98.1 Arthrodesis status; Z91.81 History of falling | CPT/HCPCS: 97110; 97140; 97161; G0283 ==

== ENCOUNTER 2019-10-31 06:00 | Outpatient (RCR) | payer MEDICARE, MEDICAID, SELFPAY | END 2019-11-30 23:59 | disposition home or self-care (01) | LOC: MPT 06:00 | PROVIDERS: PCP Family Medicine; Referring Provider Family Medicine; Visit Provider Family Medicine | DX: Z98.1 Arthrodesis status (principal); M54.31 Sciatica, right side; Z91.81 History of falling; R29.898 Other symptoms and signs involving the musculoskeletal system | CPT/HCPCS: 97110; 97140; G0283 ==

== ENCOUNTER 2019-11-06 10:53 | Outpatient (CLI) | payer MEDICARE, MEDICAID, SELFPAY ==
--- NOTE | 2019-11-06 11:00 | MR_ITS ---
WS: [id number] MRI LUMBAR SPINE NONCONTRAST HISTORY: Z98.1 Arthrodesis status COMPARISON: None available. TECHNIQUE: Sagittal and axial multisequence imaging is submitted. Mild increase in thoracic kyphosis. L5 anterolisthesis by 5.2 mm. Remaining lumbar vertebral bodies are normally aligned. Posterior fusio n hardware at L4-5. Interbody spacers also present at L4-5. Conus terminates normally at L1-2 disc level. L1-L2: Normal. L2-L3: Mild facet and ligamentum flavum arthropathy. L3-L4: Moderate annular disc bulging. There is moderate ligamentum flavum arthropathy and facet arthr itis. Osteophytes and facet and disc disease encroach upon the thecal sac and foramen. There is mild central and bilateral subarticular recess and foraminal stenosis, slightly greater on the LEFT. L4-L5: Significant artifact from the patient's fusion hardware. Suspect there is a large posterior la minectomy defect. Nerve roots are becoming clumped within the thecal sac. Very mild narrowing of the RIGHT foramen. L5-S1: Facet and ligamentum flavum arthropathy. There is encroachment upon the thecal sac. Diffuse os teophytic ridging and annular disc bulging. Small central disc protrusion. Moderate bilateral foramin al stenosis, greater on the LEFT. Significant encroachment upon the L5 nerve roots and S1 nerve roots bilaterally. RIGHT S1 nerve root is more affected than the LEFT. Paravertebral soft tissues are negative. MR/MR lumbar spine wo con* [id number] IMPRESSION: 1. Status post lumbar fusion at L4-5 with large posterior laminectomy defects. 2. Moderate bilateral foraminal and subarticular recess stenosis at L5-S1. Sig nificant encroachment upon the RIGHT S1 nerve root and LEFT L5 nerve root. 3. Mild central, bilateral subarticular recess and foraminal stenosis at L3-4, slightly greater on the LEFT. 4. No prior MRIs of the lumbar spine for comparison to evaluate for any progre ssion or change of stenoses.
== END 2019-11-06 10:54 | disposition home or self-care (01) ==
LOC: RADSHAW 10:53
PROVIDERS: PCP Family Medicine; Visit Provider Family Medicine
DX: Z98.1 Arthrodesis status (principal); M43.26 Fusion of spine, lumbar region; M48.07 Spinal stenosis, lumbosacral region; M48.061 Spinal stenosis, lumbar region without neurogenic claudication
CPT/HCPCS: 72148

== ENCOUNTER → 2020-06-09 11:40 | Outpatient (BNVA) | payer MEDICARE, MEDICAID, SELFPAY | PROVIDERS: PCP Family Medicine; Visit Provider Family Medicine | DX: I25.10 Atherosclerotic heart disease of native coronary artery without angina pectoris (principal); K59.00 Constipation, unspecified; I10 Essential (primary) hypertension; M54.31 Sciatica, right side; F33.1 Major depressive disorder, recurrent, moderate; K59.04 Chronic idiopathic constipation; R00.0 Tachycardia, unspecified; F43.9 Reaction to severe stress, unspecified; Z13.1 Encounter for screening for diabetes mellitus | CPT/HCPCS: 80053; 80061 ==

== ENCOUNTER → 2020-07-15 15:13 | Outpatient (BNVA) | payer MEDICARE, MEDICAID, SELFPAY | PROVIDERS: PCP Family Medicine; Referring Provider Neurological Surgery; Visit Provider Neurological Surgery | DX: M54.9 Dorsalgia, unspecified (principal) | CPT/HCPCS: 87635 ==

== ENCOUNTER → 2020-09-06 15:19 | Outpatient (BNVA) | payer MEDICARE, MEDICAID, SELFPAY | PROVIDERS: PCP Family Medicine; Visit Provider Emergency Medicine | DX: M54.9 Dorsalgia, unspecified (principal); R11.0 Nausea; N39.0 Urinary tract infection, site not specified | CPT/HCPCS: 81000 ==

== ENCOUNTER → 2020-12-21 12:10 | Outpatient (BNVA) | payer MEDICARE, MEDICAID, SELFPAY | PROVIDERS: PCP Family Medicine; Visit Provider Family Medicine | DX: I25.10 Atherosclerotic heart disease of native coronary artery without angina pectoris (principal); K59.00 Constipation, unspecified; R73.03 Prediabetes; K59.04 Chronic idiopathic constipation; E78.00 Pure hypercholesterolemia, unspecified; F41.9 Anxiety disorder, unspecified; I10 Essential (primary) hypertension; T74.11XA Adult physical abuse, confirmed, initial encounter | CPT/HCPCS: 80053; 83036 ==

== ENCOUNTER → 2021-01-09 11:54 | Outpatient (BNVA) | payer MEDICARE, MEDICAID, SELFPAY | PROVIDERS: PCP Family Medicine | DX: Z20.822 Contact with and (suspected) exposure to COVID-19 (principal) | CPT/HCPCS: 87635 ==

== ENCOUNTER 2021-01-12 14:10 | Emergency (ER) | payer MEDICARE, MEDICAID, SELFPAY ==
[2021-01-12] VITALS (18 sets, daily range): BP systolic 113–128; BP diastolic 58–69; PULSE 110; RESP 19; TEMP 36.6–37.7; O2SAT 92–97; BMI 32.9
--- NOTE | 2021-01-12 14:52 | XRR_ITS ---
PROCEDURE INFORMATION: Exam: XR Chest Exam date and time: 01/12/2021 2:52 PM Age: 65 years old Clinical indication: Dyspnea; Additional info: Dyspnea, covid positive TECHNIQUE: Imaging protocol: XR of the chest. Views: 1 view. COMPARISON: CR XR chest 1V portable [id number] 08/16/2019 6:42 PM FINDINGS: Lungs: Unremarkable. No consolidation. Pleural spaces: Unremarkable. No pleural effusion. No pneumothorax. Heart/Mediastinum: Unremarkable. No cardiomegaly. Bones/joints: Unremarkable. XR/XR chest 1V portable [id number] IMPRESSION: No acute findings. Radiation Dose CTDIVOL = (mGy): DLP = (mGy-cm)
--- NOTE | 2021-01-12 14:55 | ED_ITS ---
HPI - SOB/Dyspnea General: Chief Complaint: Infusion: Covid [facility] Stated Complaint: COUGH, BODY ACHES, FEVER X 7 DAYS Time Seen by Provider: 01/12/21 14:14 Source: patient Mode of arrival: ambulatory Limitations: no limitations History of Present Illness: HPI Narrative: Patient complaints of increasing shortness of breath, general malaise, frequent cough productive of mostly clear sputum, insomnia, nausea vomiting, chills, sweats and myalgias since Saturday of this week. Patient denies any diarrhea. She states she tested positive for Covid on January 09. She has had symptoms for approximately 5 days. Possible history includes depression. Patient is obese. She is 65 years old. Patient states that she would like to get the Covid infusion if she qualifies. Patient did not receive Covid vaccine. MD elicited complaint: shortness of breath and cough Pertinent past history: other (Recent diagnosis of Covid.) Onset (ago): day(s) (4) Timing: constant and progressively worsening Severity: moderate Exacerbating factors: coughing Relieving factors: nothing Associated symptoms: Reports cough, diaphoresis, fever(s), myalgias, nausea and vomiting; Deny abdominal pain, chest pain or palpitations Treatment prior to arrival: none Related Data: Home oxygen amount: none Review of Systems Const: Reports: fever(s), chills, body aches, malaise, diaphoresis and change in sleep pattern Eyes: Denies: change in vision ENMT: Denies: throat pain Card: Denies: chest pain or palpitations Resp: Reports: dyspnea and productive cough (Mostly clear sputum.); Denies: wheezing or stridor GI: Reports: nausea and vomiting; Denies: abdominal pain or diarrhea : Denies: flank pain Musc: Denies: neck pain or back pain Skin/Breast: Denies: rash or pruritus Neuro: Denies: headache(s) or numbness in extremities Psych: Denies: anxiety Marck/Lymph: Denies: enlarged lymph nodes PFSH ED PFSH: Medical History Hx of non-ST elevation myocardial infarction (NSTEMI) Psychiatric care Psychiatric care Tachycardia Surgical History H/O section x2 H/O rotator cuff surgery Previous back surgery L4-L5 Family History Father Dementia Stroke Social History Smoking and tobacco status: former smoker Second hand smoke exposure: No Alcohol intake: current Alcohol intake frequency: holidays/special occasions only Desire information about alcohol rehabilitation?: No Desire information about substance/drug rehabilitation?: No History of recent travel: No (moved from [place] in 04/2019) Current gender identity: Female Female Reproductive History: Spontaneous abortions: No Physical Exam Const: COMMON NORMALS: no acute distress, patient oriented x3, no limitations and well nourished EXAM LIMITATIONS: no altered mental status GENERAL APPEARANCE: cooperative and well kempt NUTRITIONAL APPEARANCE: overweight HENMT: COMMON NORMALS: normocephalic and atraumatic HEAD & SCALP: normocephalic and atraumatic FACE & SINUS: normal facial exam MOUTH: Normal oral and palatal mucosa present Eye: COMMON NORMALS: EOMs intact bilaterally Neck/C-Spine: COMMON NORMALS: full ROM, no lymphadenopathy, supple, no meningeal signs and no JVD GENERAL: Yes normal visual inspection and Yes trachea midline Lymph: LYMPHATIC: no lymphadenopathy noted Chest: COMMONS NORMALS: normal inspection of the chest and normal palpation of entire chest wall CHEST: No Ecchymosis present and No rash Resp: COMMON NORMALS: normal respiratory effort, No retractions, No use of accessory muscles and clear to auscultation bilaterally EFFORT & INSPECTION: No respiratory distress AUSCULTATION: clear to auscultation bilaterally Cardio: COMMON NORMALS: no JVD, regular rate, regular rhythm and Peripheral pulses 2+ throughout JUGULAR VENOUS DISTENTION: no JVD RATE: regular rate RHYTHM: regular rhythm PERIPHERAL PULSES: Peripheral pulses 2+ throughout GI: COMMON NORMALS: Normal to inspection, nondistended, normoactive bowel sounds present, Soft to palpation, non-tender and No hepatosplenomegaly present PALPATION: Yes Soft to palpation and Yes No hepatosplenomegaly present : COMMON NORMALS: Yes no CVA tenderness BLADDER/KIDNEY EXAM: Yes no CVA tenderness Back/Pelvis: COMMON NORMALS: no CVA tenderness Extremity: COMMON NORMALS: normal to inspection, full ROM and capillary refill normal Neuro: COMMON NORMALS: patient oriented x3, CN's II-XII intact bilaterally, no focal motor deficits and no sensory deficits noted MENINGEAL SIGNS: Yes no meningeal signs Psych: COMMON NORMALS: mental status grossly normal and Normal thought process present APPEARANCE: Yes well kempt THOUGHT PROCESS: Normal thought process present Skin: COMMON NORMALS: no rashes or lesions noted and no wounds GENERAL SKIN EXAM: no rashes or lesions noted Course Vital Signs: Vital signs: Vital Signs Temperature 97.8 F 01/12/21 14:15 Pulse Rate 110 H 01/12/21 14:15 Respiratory Rate 19 H 01/12/21 14:15 Blood Pressure 126/69 01/12/21 14:15 Pulse Oximetry 95 01/12/21 14:15 MDM - SOB/Dyspnea MDM Narrative: Medical decision making narrative: See nursing assessment. Patient tested positive by a Covid PCR on January 09, 2021. Patient qualifies for monoclonal antibody infusion due to her weight and age. Oxygen saturation is 96% on room air. Blood pressure 126/69. 1555: Infusion has completed. Patient reexamined. Patient states she is feeling fine. Lungs are clear. Oxygen saturation remains at 97% on room air. Awaiting chemistry results. Lab Data: Attestation: I reviewed the patient's lab results. Labs: Lab Results 01/12/21 01/12/21 15:20 15:20 WBC 5.9 10^3/uL 10^3/ uL (4.0-10.0) RBC 5.05 10^6/uL 10^6 /uL (4.1-5.3) Hgb 14.2 g/dL g/dL (11.5-15.3) Hct 41.0 % % (37.0-47.0) MCV 81.2 fl fl (81-99) MCH 28.1 pg pg (28.0-34.0) MCHC 34.6 g/dL g/dL (30.0-36.0) RDW 14.7 % % (12.1-15.1) Plt Count 240 10^3/cmm 10^3 /cmm (130-400) MPV 9.7 fL fL (7.4-10.4) Neut % (Auto) 66.5 % % Lymph % (Auto) 28.0 % % Carlton % (Auto) 5.1 % % Eos % (Auto) 0.0 % % Baso % (Auto) 0.2 % % Neut # (Auto) 3.94 10^3/uL 10^3 /uL (1.8-7.7) Lymph # (Auto) 1.7 10^3/uL 10^3/ uL (0.8-4.8) Carlton # (Auto) 0.3 10^3/uL 10^3/ uL (0.2-0.9) Eos # (Auto) 0.0 10^3/uL 10^3/ uL (0.0-0.8) Baso # (Auto) 0.0 10^3/uL 10^3/ uL (0.0-0.1) Nucleated RBC % (a uto) 0 % % Nucleated RBCs # 0.0 /100WBC /100W BC Sodium 133 mmol/L L mmol /L (136-145) Potassium 3.9 mmol/L mmol/L (3.5-5.1) Chloride 94 mmol/L L mmol/ L (98-107) Carbon Dioxide 25 mmol/L mmol/L (22-29) Anion Gap 17.9 (5-19) BUN 13 mg/dL mg/dL (8-23) Creatinine 0.7 mg/dL mg/dL (0.5-0.9) GFR Calculation 83.5 mL/min L mL/ min (90-130) Glucose 106 mg/dL mg/dL (65-115) Calculated Osmolal ity 277 mOsm/kg L mOs m/kg (285-295) Calcium 8.9 mg/dL mg/dL (8.5-10.5) Imaging Data^: CXR: Attestation: I personally reviewed and interpreted this imaging study as foll ows: My impression: Mild generalized viral pneumonitis. Discharge Plan Discharge Patient Disposition: Home Clinical Impression: Pneumonia due to 2019 novel coronavirus Nausea & vomiting Qualifiers: Vomiting type: unspecified Vomiting Intractability: non-intractable Qualified Code(s): R11.2 - Nausea with vomiting, unspecified Condition: Stable Prescriptions: New Decadron 4 mg tablet 4 mg PO DAILY Qty: 5 RF: 0 Zofran 4 mg tablet 4 mg PO Q6H PRN (Reason: nausea and vomiting) Qty: 10 RF: 2 No Action duloxetine [Cymbalta] 30 mg capsule,delayed release(DR/EC) 30 mg PO DAILY Qty: 90 RF: 0 duloxetine 60 mg capsule,delayed release(DR/EC) See Rx Instructions .ROUTE .COMPLEX Qty: 90 RF: 0 amitriptyline 100 mg tablet See Rx Instructions .ROUTE .COMPLEX Qty: 90 RF: 0 calcium carbonate 600 mg calcium (1,500 mg) tablet 600 mg PO DAILY RF: 0 multivitamin Capsule 1 cap PO DAILY RF: 0 melatonin 10 mg capsule 10 mg PO DAILY RF: 0 miscellaneous medical supply Misc See Rx Instructions miscellaneous .COMPLEX Qty: 1 RF: 0 atorvastatin 20 mg tablet See Rx Instructions .ROUTE .COMPLEX 90 Days Qty: 90 RF: 3 metoprolol succinate 25 mg tablet extended release 24 hr 25 mg PO DAILY 90 Days Qty: 90 RF: 3 docusate sodium 100 mg capsule 100 mg PO BID 90 Days Qty: 180 RF: 3 Discharge Orders: Discharge ED (Routine); Ordered 01/12/21 Ordered By: Lucio Rivera Referrals: Erica Rodgers MD [Primary Care Provider] - (Follow-up with your doctor as needed) Discharge Diet: Advance as tolerated Discharge Activity: Increase activity as tolerated Patient Instructions: COVID-19 (Coronavirus Disease 2019) (ED), Opioid Safety, Vomiting - Adult Activity Restrictions/Additional Instructions: You received Covid infusion today. Start dexamethasone tablet today. Return if problems. Quarantine yourself for another 10 days. Coding Level of Care Code ED Solar Applications Development Engineer for Major Fwd Exam Comprehensive
[2021-01-12] MEDS: acetaminophen 325 mg Tablet 650 MG PO (15:24)
[2021-01-12] MEDS: ondansetron 2 mg/ML SDV 2 mL 4 MG IVP (15:25)
[2021-01-12] MEDS: sodium chloride 0.9% 500 ML IV (15:26)
[2021-01-12 15:40] LABS: Basophils % 0.2 %; Hemoglobin 14.2 g/dL (11.5-15.3); Lymphocytes # 1.7 10^3/uL (0.8-4.8); Mean Corpuscular HGB Conc 34.6 g/dL (30.0-36.0); Mean Corpuscular Hemoglobin 28.1 pg (28.0-34.0); Mean Corpuscular Volume 81.2 fl (81-99); Mean Platelet Volume 9.7 fL (7.4-10.4); Monocytes # 0.3 10^3/uL (0.2-0.9); Monocytes % 5.1 %; Neutrophils # 3.94 10^3/uL (1.8-7.7); Neutrophils % 66.5 %; Nucleated Red Blood Cells % 0 %; Platelet Count 240 10^3/cmm (130-400); Red Blood Count 5.05 10^6/uL (4.1-5.3); Red Cell Distribution Width 14.7 % (12.1-15.1); White Blood Count 5.9 10^3/uL (4.0-10.0)
[2021-01-12 16:18] LABS: Anion Gap 17.9 (5-19); Blood Urea Nitrogen 13 mg/dL (8-23); Calcium 8.9 mg/dL (8.5-10.5); Carbon Dioxide 25 mmol/L (22-29); Chloride 94 mmol/L (98-107); Glomerular Filtration Rate 83.5 mL/min (90-130); Glucose 106 mg/dL (65-115); Osmolality Calculated 277 mOsm/kg (285-295); Potassium 3.9 mmol/L (3.5-5.1); Sodium 133 mmol/L (136-145)
--- NOTE | 2021-01-14 12:36 | PC.NURSE ---
Critical Lab value called, results given to Dr Guidry, orders received to wait for final culture results at this time.
== END 2021-01-12 17:34 | disposition home or self-care (01) ==
PROVIDERS: Emergency Provider Family Medicine; PCP Family Medicine
DX: U07.1 COVID-19 (principal); J12.82 Pneumonia due to coronavirus disease 2019; R11.2 Nausea with vomiting, unspecified; I25.2 Old myocardial infarction; Z87.891 Personal history of nicotine dependence
CPT/HCPCS: 71045; 80048; 85025; 87040; 87205; 96365; 96375; 99284; J2405; J7040

== ENCOUNTER → 2021-03-14 15:25 | Outpatient (BNVA) | payer MEDICARE, MEDICAID, SELFPAY | PROVIDERS: PCP Family Medicine; Referring Provider Family Medicine; Visit Provider Orthopaedic Surgery | DX: M54.50 Low back pain, unspecified (principal) | CPT/HCPCS: 72110 ==

== ENCOUNTER → 2021-05-31 08:18 | Outpatient (BNVA) | payer MEDICARE, MEDICAID, SELFPAY | PROVIDERS: PCP Family Medicine; Referring Provider Orthopaedic Surgery; Visit Provider Specialist | DX: M54.16 Radiculopathy, lumbar region (principal); G62.89 Other specified polyneuropathies; Z98.1 Arthrodesis status; Z87.891 Personal history of nicotine dependence | CPT/HCPCS: 95909; 99202 ==

== ENCOUNTER → 2021-07-13 14:39 | Outpatient (BNVA) | payer MEDICARE, MEDICAID, SELFPAY | PROVIDERS: PCP Family Medicine; Visit Provider Orthopaedic Surgery | DX: Z98.1 Arthrodesis status (principal); M54.16 Radiculopathy, lumbar region | CPT/HCPCS: 99214 ==

== ENCOUNTER → 2021-09-27 11:42 | Outpatient (BNVA) | payer MEDICARE, MEDICAID, SELFPAY | PROVIDERS: PCP Family Medicine; Referring Provider Family Medicine; Visit Provider Nurse Practitioner | DX: G43.709 Chronic migraine without aura, not intractable, without status migrainosus (principal) | CPT/HCPCS: 99204 ==

== ENCOUNTER 2021-10-03 09:59 | Outpatient (CLI) | payer MEDICARE, MEDICAID, SELFPAY ==
--- NOTE | 2021-10-03 | IR_ITS ---
WS: [id number] LUMBAR MYELOGRAM HISTORY: Chronic low back pain. Prior surgeries. COMPARISON: 03/14/2021 radiographs. FLUOROSCOPY TIME: 1min [id number] # of spot films: 0 Procedure, risks and complications were explained to the patient. Risks including bleeding, infection , headaches, allergic reaction and seizures. Consent has been obtained. With the patient in prone position the skin over the lumbar region is cleansed with ChloraPrep and an esthetized with lidocaine. 22-gauge spinal needle is inserted into the thecal sac at the appropriate level determined by fluoroscopy. Omnipaque 240; 12 ml is injected slowly under fluoroscopy with no co mplications. Needle bevel is perpendicular to the longitudinal fibers of the dura. Stylet is reinsert ed prior to removal of the needle. Patient tolerated the procedure well. Patient will proceed to CT f or further evaluation. Mild RIGHT curvature of the lumbar spine. Posterior lumbar fusion extends from L3 to S1. Interbody sp acers at L3-4, L4-5 and L5-S1. L5 anterolisthesis by 4 mm. Similar to the prior study. No possible l ucency around the vertebral body screws at L5. This will be further evaluated by CT. Mild central canal stenosis and narrowing of the thecal sac at L3-4. This will be further evaluated o n follow-up CT. During flexion and extension there is no significant movement of the vertebral bodies . IR/[place] [id number] IMPRESSION: 1. Status post lumbar myelogram. 2. Posterior fusion with interbody spacers from L3 to S1. 3. Possible lucency indicating loosening around the vertebral body screws of L 5. This will be better evaluated on the CT to follow. 4. Mild central stenosis at L3-4 level. 5. Stable L5 anterolisthesis by 4 mm. 6. No instability.
--- NOTE | 2021-10-03 | CT_ITS ---
WS: [id number] CT MYELOGRAM LUMBAR SPINE HISTORY: low back pain TECHNIQUE: Contiguous 2.5 mm axial imaging performed from T12 through the mid sacral level. Bone and soft tissue windows reviewed. Sagittal and coronal reformats are submitted and reviewed. DLP: 1292.[address] scans at [facility] use at least one of these dose optimization techniques: automated e xposure control; mA and/or kV adjustment per patient size (includes targeted exams where dose is matc hed to clinical indication); or iterative reconstruction. COMPARISON: None available. Posterior lumbar fusion from L3 to S1. Bilateral screws and vertical rods. No definite lucency noted around the screws. No hardware fracture is appreciated. Interbody spacers at L3-4 and L4-5 and L5-S1. No inappropriate movement of the spacers. Slight increase in the lumbar lordosis. Contrast tapers no rmally and ends at L1. L1-L2: No stenosis. L2-L3: Mild annular disc bulging with a very shallow RIGHT foraminal disc protrusion. L3-L4: Hypertrophic bone encroaches into the posterior LEFT lateral thecal sac from the facet. Small vertebral body osteophytes no high-grade stenosis. L4-L5: Large posterior laminectomy defect. Bone grafting material is noted bilaterally. No central st enosis. L5-S1: Large posterior laminectomy defect. Facet joint arthritis with bone grafting material. Incompl etely fused grafting. Mild atherosclerotic plaque within the aorta. CT/CT lumbar spine w con [id number] IMPRESSION: 1. Status post posterior lumbar fusion from L3 to S1 with interbody spacers. N o hardware fracture or loosening identified. 2. Hypertrophic bone formation extending into the LEFT posterior lateral theca l sac at L3-4. Mild encroachment upon the thecal sac. 3. Large posterior laminectomy defects from L4 to S1.
[2021-10-03] MEDS: iohexol 240 mg/mL 50 mL Btl INTRATHECA (11:21)
== END 2021-10-03 10:00 | disposition home or self-care (01) ==
PROVIDERS: PCP Family Medicine; Visit Provider Orthopaedic Surgery
DX: M54.16 Radiculopathy, lumbar region (principal); M48.061 Spinal stenosis, lumbar region without neurogenic claudication; Z98.1 Arthrodesis status
CPT/HCPCS: 62304; 72120; 72132

== ENCOUNTER → 2021-10-04 13:39 | Outpatient (BNVA) | payer MEDICARE, MEDICAID, SELFPAY | PROVIDERS: PCP Family Medicine; Visit Provider Family Medicine | DX: M54.16 Radiculopathy, lumbar region (principal); G62.9 Polyneuropathy, unspecified; M54.9 Dorsalgia, unspecified; M54.31 Sciatica, right side; Z98.1 Arthrodesis status; M43.6 Torticollis | CPT/HCPCS: 72040 ==

== ENCOUNTER 2021-10-09 16:47 | Emergency (ER) | payer MEDICARE, MEDICAID, SELFPAY ==
[2021-10-09 17:00] VITALS: BP 150/80; PULSE 116; RESP 18; TEMP 36.2; O2SAT 96; BMI 35.5
--- NOTE | 2021-10-09 17:33 | USR_ITS ---
PROCEDURE INFORMATION: Exam: US Duplex Left Lower Extremity Veins, Limited Exam date and time: 10/09/2021 5:45 PM Age: 66 years old Clinical indication: Leg, lower; Left; Patient HX: Lt leg pain x 3 days. Some swelling. Family HX dvt; Additional info: Leg swelling and pain, HX of dvt TECHNIQUE: Imaging protocol: Real-time Duplex ultrasound of the Left Lower Extremity with 2-D watson scale, color Doppler flow and spectral waveform analysis with image documentation. Limited exam focused on the left lower extremity veins. COMPARISON: No relevant prior studies available. FINDINGS: Left deep veins: Hypoechoic, occlusive thrombus in the posterior tibial vein. The common femoral, proximal profunda femoral, femoral, popliteal and peroneal veins are patent without thrombus. Left superficial veins: Unremarkable. Saphenofemoral junction is patent without thrombus. Soft tissues: Unremarkable. US/CV venous duplex [facility] [id number] IMPRESSION: Hypoechoic, occlusive thrombus in the posterior tibial vein.
--- NOTE | 2021-10-09 18:36 | ED_ITS ---
HPI - General Adult General: Chief complaint: General Medical Stated complaint: leg pains, swelling Time Seen by Provider: 10/09/21 18:22 History of Present Illness: 66-year-old female comes in today with complaints of pain and discomfort to the left lower leg. Patient reports pain started on Saturday. Patient had a myelogram about 1 week ago. Patient reports no recent surgical procedures. Patient did have COVID-19 over 6 months ago. Patient denies any chest pain or shortness of breath. Patient does have a strong family history for DVT. Associated symptoms: Deny chest pain or dyspnea Review of Systems General: Reports: 10 or more systems reviewed and unremarkable except in HPI and below Card: Denies: chest pain Resp: Denies: dyspnea Musc: Reports: extremity pain and extremity swelling PFS ED PFSH: Medical History Hx of non-ST elevation myocardial infarction (NSTEMI) Psychiatric care Psychiatric care Tachycardia Surgical History H/O section x2 H/O rotator cuff surgery Previous back surgery L4-L5 Family History Father Dementia Stroke Social History Smoking and tobacco status: never smoked Second hand smoke exposure: No Alcohol intake: current Alcohol intake frequency: holidays/special occasions only Desire information about alcohol rehabilitation?: No Desire information about substance/drug rehabilitation?: No History of recent travel: No (moved from [place] in 04/2019) Current gender identity: Female Female Reproductive History: Spontaneous abortions: No Physical Exam Const: COMMON NORMALS: alert HENMT: COMMON NORMALS: normocephalic HEAD & SCALP: normocephalic Neck/C-Spine: COMMON NORMALS: full ROM Resp: COMMON NORMALS: normal respiratory effort Cardio: COMMON NORMALS: regular rate and regular rhythm RATE: regular rate RHYTHM: regular rhythm GI: COMMON NORMALS: Soft to palpation and non-tender PALPATION: Yes Soft to palpation Extremity: LEFT LOWER EXTREMITY: Yes lower leg (Calf tenderness and swelling, no erythema) Left lower leg: Yes inspection, Yes palpation and Yes neurovascular exam Neuro: SENSORIUM/ORIENTATION: Yes alert Skin: COMMON NORMALS: no rashes or lesions noted GENERAL SKIN EXAM: no r ashes or lesions noted Course ED course: 1899, Dr. Biswas, radiologist, notified us of posterior tibial vein DVT of the left lower extremity. Vital Signs: Vital signs: Vital Signs Temperature 97.2 F L 10/09/21 17:00 Pulse Rate 116 H 10/09/21 17:00 Respiratory Rate 18 10/09/21 17:00 Blood Pressure 150/80 10/09/21 17:00 Pulse Oximetry 96 10/09/21 17:00 MDM - General Adult Medical Decision Making 66-year-old female comes in today with complaints of left calf pain for the last 2 days. Patient denies any decrease in activity or recent surgeries. Patient does report a myelogram about 1 week ago. Patient denies any long travels. On exam patient has a positive Homans' sign on the left side. Calf discomfort. And popliteal angle discomfort. Minimal swelling is noted and no redness or warmth is noted. Differential diagnosis includes but not limited to Nagy's cyst, DVT, inflammation of varicose veins. Ultrasound of the extremity noted a tibial vein DVT. Patient was placed on Eliquis with recommendations for follow- up with primary care in 1 week. Patient reported understanding of care plan with need for follow-up or return to the ER. Lab Data : 10/09/21 18:45 Radiology Impressions Venous Duplex 10/09/21 17:33 IMPRESSION: Hypoechoic, occlusive thrombus in the posterior tibial vein. ADDENDUM: 10/09/211900 ADDENDUM: THIS REPORT CONTAINS FINDINGS THAT MAY BE CRITICAL TO PATIENT CARE. The findings were verbally communicated via telephone conference with WILIAN RODRIGUEZ at 6:59 PM CDT on 10/09/2021. The findings were acknowledged and understood. Laboratory Results Sodium 140 mmol/L (136-145) 10/09/21 18:45 Potassium 4.6 mmol/L (3.5-5.1) 10/09/21 18:45 Chloride 102 mmol/L (98-107) 10/09/21 18:45 Carbon Dioxide 25 mmol/L (22-29) 10/09/21 18:45 Anion Gap 17.6 (5-19) 10/09/21 18:45 BUN 10 mg/dL (8-23) 10/09/21 18:45 Creatinine 0.6 mg/dL (0.5-0.9) 10/09/21 18:45 GFR Calculation 99.4 mL/min (90-130) 10/09/21 18:45 Glucose 98 mg/dL (65-115) 10/09/21 18:45 Calculated Osmolality 289 mOsm/kg (285-295) 10/09/21 18:45 Calcium 9.6 mg/dL (8.5-10.5) 10/09/21 18:45 Discharge Plan Discharge Patient Disposition: Home Clinical Impression: DVT (deep venous thrombosis) Qualifiers: DVT location: lower extremity Affected thrombotic vein of extremity: tibial Chronicity: acute Laterality: left Qualified Code(s): I82.442 - Acute embolism and thrombosis of left tibial vein Condition: Stable Prescriptions: Chalo Whalen DVT-PE Treat 30D Start 5 mg (74 tabs) tablets,dose pack See Rx Instructions .ROUTE .COMPLEX Qty: 74 0RF Rx Instructions: orally per package directions No Action atorvastatin 20 mg tablet See Rx Instructions .ROUTE .COMPLEX 90 Days Qty: 90 3RF Dose Instruction: TAKE 1 TABLET BY MOUTH DAILY Rx Instructions: TAKE 1 TABLET BY MOUTH DAILY melatonin 10 mg capsule 10 mg PO .at bedtime 30 Days Qty: 30 5RF vitamin B complex [B Complex-Vitamin B12] Tablet 1 tab PO DAILY 0RF calcium carbonate 600 mg calcium (1,500 mg) tablet 600 mg PO DAILY 0RF multivitamin Capsule 1 cap PO DAILY 0RF pregabalin [Lyrica] 75 mg capsule 75 mg PO BID 30 Days Qty: 60 2RF metoprolol succinate 50 mg tablet extended release 24 hr 50 mg PO DAILY 90 Days Qty: 90 3RF miscellaneous medical supply Misc See Rx Instructions miscellaneous .COMPLEX Qty: 1 0RF Rx Instructions: 1 cane, quad, self-standing miscellaneous; sumatriptan succinate [Imitrex] 100 mg tablet See Rx Instructions PO .COMPLEX Qty: 9 2RF Rx Instructions: take 1 tab at onset of headache; if no relief, may repeat 1 tab after at least 2 hrs; max = 2 tabs/24 hrs PO divalproex [Depakote] 500 mg tablet,delayed release (DR/EC) 500 mg PO DAILY Qty: 30 2RF Rx Instructions: take daily at bedtime amitriptyline 100 mg tablet See Rx Instructions .ROUTE .COMPLEX Qty: 90 0RF Dose Instruction: TAKE 1 TABLET BY MOUTH DAILY Rx Instructions: TAKE 1 TABLET BY MOUTH DAILY duloxetine [Cymbalta] 30 mg capsule,delayed release(DR/EC) 30 mg PO DAILY Qty: 90 0RF Rx Instructions: in addition to 60mg daily duloxetine 60 mg capsule,delayed release(DR/EC) See Rx Instructions .ROUTE .COMPLEX Qty: 90 0RF Dose Instruction: TAKE ONE CAPSULE BY MOUTH DAILY Rx Instructions: TAKE ONE CAPSULE BY MOUTH DAILY Discharge Orders: Discharge ED (Routine); Ordered 10/09/21 Ordered By: Wilian Rodriguez Referrals: Erica Rodgers MD [Primary Care Provider] - Discharge Diet: Usual diet Discharge Activity: Increase activity as tolerated Patient Instructions: Deep Vein Thrombosis (ED), Opioid Safety Activity Restrictions/Additional Instructions: Continue routine care. Drink plenty of water with medications. Avoid the use of NSAIDs like ibuprofen, aspirin, or naproxen for pain. Use acetaminophen, Tylenol, for pain and fever unless otherwise directed. Follow-up with primary care in 1 week for recheck. Return to ER for chest pain or shortness of breath. Coding Level of Care Code ED Home Care Manager Rn for Major Fwd Exam Comprehensive
[2021-10-09 19:26] LABS: Blood Urea Nitrogen 10 mg/dL (8-23); Calcium 9.6 mg/dL (8.5-10.5); Carbon Dioxide 25 mmol/L (22-29); Chloride 102 mmol/L (98-107); Glomerular Filtration Rate 99.4 mL/min (90-130); Glucose 98 mg/dL (65-115); Osmolality Calculated 289 mOsm/kg (285-295); Sodium 140 mmol/L (136-145)
[2021-10-09] MEDS: apixaban 5 mg Tablet 10 MG PO (19:56)
[2021-10-09 20:14] LABS: Anion Gap 17.6 (5-19); Potassium 4.6 mmol/L (3.5-5.1)
== END 2021-10-09 19:58 | disposition home or self-care (01) ==
PROVIDERS: Emergency Provider Nurse Practitioner Family; PCP Family Medicine
DX: I82.442 Acute embolism and thrombosis of left tibial vein (principal); I25.2 Old myocardial infarction
CPT/HCPCS: 80048; 93971; 99284

== ENCOUNTER → 2021-10-12 13:36 | Outpatient (BNVA) | payer MEDICARE, MEDICAID, SELFPAY | PROVIDERS: PCP Family Medicine; Visit Provider Physician Assistant | DX: M96.1 Postlaminectomy syndrome, not elsewhere classified (principal); M54.50 Low back pain, unspecified; G89.29 Other chronic pain; Z98.1 Arthrodesis status | CPT/HCPCS: 99213 ==

== ENCOUNTER → 2021-12-07 08:18 | Outpatient (BNVA) | payer MEDICARE, MEDICAID, SELFPAY | PROVIDERS: PCP Family Medicine; Visit Provider Anesthesiology Pain Medicine | DX: G89.29 Other chronic pain (principal); M47.816 Spondylosis without myelopathy or radiculopathy, lumbar region; M96.1 Postlaminectomy syndrome, not elsewhere classified; Z87.891 Personal history of nicotine dependence | CPT/HCPCS: 99204 ==

== ENCOUNTER → 2021-12-25 14:34 | Outpatient (BNVA) | payer MEDICARE, MEDICAID, SELFPAY | PROVIDERS: PCP Family Medicine; Visit Provider Anesthesiology Pain Medicine | DX: G89.29 Other chronic pain (principal); M47.816 Spondylosis without myelopathy or radiculopathy, lumbar region; Z87.891 Personal history of nicotine dependence | CPT/HCPCS: 64493; 64494; 64495; J3490 ==

== ENCOUNTER 2021-12-27 06:00 | Outpatient (RCR) | payer MEDICARE, MEDICAID, OTHER, SELFPAY | END 2021-12-29 23:59 | disposition home or self-care (01) | LOC: SPT 06:00 | PROVIDERS: PCP Family Medicine; Visit Provider Anesthesiology Pain Medicine | DX: M54.50 Low back pain, unspecified (principal); G89.29 Other chronic pain | CPT/HCPCS: 97161 ==

== ENCOUNTER 2021-12-30 06:00 | Outpatient (RCR) | payer MEDICARE, MEDICAID, SELFPAY | END 2022-01-29 23:59 | disposition home or self-care (01) | LOC: SPT 06:00 | PROVIDERS: PCP Family Medicine; Visit Provider Anesthesiology Pain Medicine | DX: M54.50 Low back pain, unspecified (principal); G89.29 Other chronic pain | CPT/HCPCS: 97110 ==

== ENCOUNTER → 2022-01-18 13:57 | Outpatient (BNVA) | payer MEDICARE, MEDICAID, SELFPAY | PROVIDERS: PCP Family Medicine; Visit Provider Anesthesiology Pain Medicine | DX: G89.29 Other chronic pain (principal); M47.816 Spondylosis without myelopathy or radiculopathy, lumbar region; Z87.891 Personal history of nicotine dependence | CPT/HCPCS: 64493; 64494; 64495; J3490 ==

== ENCOUNTER 2022-01-29 20:00 | Outpatient (CLI) | payer MEDICARE, MEDICAID, SELFPAY | END 2022-01-29 20:01 | disposition home or self-care (01) | LOC: SLEEP 01-30 04:59 | PROVIDERS: PCP Family Medicine; Visit Provider Nurse Practitioner | DX: G47.9 Sleep disorder, unspecified (principal); G47.33 Obstructive sleep apnea (adult) (pediatric) | CPT/HCPCS: 95810 ==

== ENCOUNTER → 2022-01-31 10:03 | Outpatient (BNVA) | payer MEDICARE, MEDICAID, SELFPAY | PROVIDERS: PCP Family Medicine; Visit Provider Anesthesiology Pain Medicine | DX: G89.29 Other chronic pain (principal); M47.816 Spondylosis without myelopathy or radiculopathy, lumbar region; M96.1 Postlaminectomy syndrome, not elsewhere classified; M79.604 Pain in right leg; M79.605 Pain in left leg; Z87.891 Personal history of nicotine dependence | CPT/HCPCS: 99214 ==

== ENCOUNTER 2022-03-07 15:55 | Outpatient (CLI) | payer MEDICARE, MEDICAID, SELFPAY ==
--- NOTE | 2022-03-07 16:30 | CT_ITS ---
WS: [id number] CT HEAD TECHNIQUE: Noncontrast CT of the head obtained from the skullbase to the vertex. CLINICAL INFORMATION: G43.709 - Chronic migraine without aura, not intractable,... COMPARISON: None. DLP: 1028.[address] scans at [facility] use at least one of these dose optimization techniques: automated e xposure control; mA and/or kV adjustment per patient size (includes targeted exams where dose is matc hed to clinical indication); or iterative reconstruction. FINDINGS: No evidence of intracranial hemorrhage or mass effect. Ventricular system and basal cisterns are garcia nt. Mild small vessel changes with moderate parenchymal volume loss worse in the frontal lobes. No ex tra-axial fluid collections. No evidence of mass or mass effect. Paranasal sinuses and mastoid air cells are well aerated. .Normal visualized soft tissues. CT/CT head wo con* [id number] IMPRESSION: 1. No evidence of intracranial hemorrhage or mass effect. 2. Mild small vessel changes with moderate parenchymal volume loss worse in th e frontal lobes. 3. No acute intracranial findings.
== END 2022-03-07 15:56 | disposition home or self-care (01) ==
LOC: RAD 15:58
PROVIDERS: PCP Family Medicine; Visit Provider Nurse Practitioner
DX: G43.709 Chronic migraine without aura, not intractable, without status migrainosus (principal)
CPT/HCPCS: 70450

== ENCOUNTER → 2022-04-09 08:40 | Outpatient (BNVA) | payer MEDICARE, MEDICAID, SELFPAY | PROVIDERS: PCP Family Medicine; Visit Provider Family Medicine | DX: I10 Essential (primary) hypertension (principal); E78.00 Pure hypercholesterolemia, unspecified; R73.03 Prediabetes; I82.402 Acute embolism and thrombosis of unspecified deep veins of left lower extremity; Z79.01 Long term (current) use of anticoagulants; M54.16 Radiculopathy, lumbar region; G62.9 Polyneuropathy, unspecified; M54.9 Dorsalgia, unspecified; M54.31 Sciatica, right side; Z98.1 Arthrodesis status | CPT/HCPCS: 80053; 80061; 82043; 83036; 85025 ==

== ENCOUNTER → 2022-05-16 13:08 | Outpatient (BNVA) | payer MEDICARE, MEDICAID, SELFPAY | PROVIDERS: PCP Family Medicine; Visit Provider Anesthesiology Pain Medicine | DX: M47.816 Spondylosis without myelopathy or radiculopathy, lumbar region (principal); G89.29 Other chronic pain | CPT/HCPCS: 64635; 64636; J3490 ==

== ENCOUNTER → 2022-05-30 10:43 | Outpatient (BNVA) | payer MEDICARE, MEDICAID, SELFPAY | PROVIDERS: PCP Family Medicine; Visit Provider Anesthesiology Pain Medicine | DX: G89.29 Other chronic pain (principal); M47.816 Spondylosis without myelopathy or radiculopathy, lumbar region; M96.1 Postlaminectomy syndrome, not elsewhere classified | CPT/HCPCS: 99214 ==

== ENCOUNTER → 2022-06-20 14:00 | Outpatient (BNVA) | payer MEDICARE, MEDICAID, SELFPAY | PROVIDERS: PCP Family Medicine; Visit Provider Anesthesiology Pain Medicine | DX: M47.816 Spondylosis without myelopathy or radiculopathy, lumbar region (principal); G89.29 Other chronic pain | CPT/HCPCS: 64635; 64636; J1030 ==

== ENCOUNTER → 2022-06-25 09:36 | Outpatient (BNVA) | payer MEDICARE, MEDICAID, SELFPAY | PROVIDERS: PCP Family Medicine; Visit Provider Podiatrist Foot & Ankle Surgery | DX: I73.9 Peripheral vascular disease, unspecified (principal); R73.03 Prediabetes; L85.3 Xerosis cutis; B35.1 Tinea unguium | CPT/HCPCS: 11721; 99203 ==

== ENCOUNTER → 2022-07-06 13:12 | Outpatient (BNVA) | payer MEDICARE, MEDICAID, SELFPAY | PROVIDERS: PCP Family Medicine; Visit Provider Nurse Practitioner | DX: G43.709 Chronic migraine without aura, not intractable, without status migrainosus (principal); G47.33 Obstructive sleep apnea (adult) (pediatric) | CPT/HCPCS: 99213 ==

== ENCOUNTER → 2022-07-10 11:06 | Outpatient (BNVA) | payer MEDICARE, MEDICAID, SELFPAY | PROVIDERS: PCP Family Medicine; Visit Provider Anesthesiology Pain Medicine | DX: M16.0 Bilateral primary osteoarthritis of hip (principal); G89.29 Other chronic pain; M96.1 Postlaminectomy syndrome, not elsewhere classified; M47.816 Spondylosis without myelopathy or radiculopathy, lumbar region | CPT/HCPCS: 73521; 99214 ==

== ENCOUNTER → 2022-08-07 10:39 | Outpatient (BNVA) | payer MEDICARE, MEDICAID, SELFPAY | PROVIDERS: PCP Family Medicine; Visit Provider Anesthesiology Pain Medicine | DX: G89.29 Other chronic pain (principal); M16.11 Unilateral primary osteoarthritis, right hip; M96.1 Postlaminectomy syndrome, not elsewhere classified; M47.816 Spondylosis without myelopathy or radiculopathy, lumbar region | CPT/HCPCS: 99214 ==

== ENCOUNTER → 2022-08-22 10:39 | Outpatient (BNVA) | payer MEDICARE, MEDICAID, SELFPAY | PROVIDERS: PCP Family Medicine; Referring Provider Anesthesiology Pain Medicine; Visit Provider Specialist | DX: M25.551 Pain in right hip (principal) | CPT/HCPCS: 73502; 99204 ==

== ENCOUNTER 2022-09-04 13:47 | Outpatient (CLI) | payer MEDICARE, MEDICAID, SELFPAY ==
--- NOTE | 2022-09-04 14:30 | CT_ITS ---
WS: [id number] NONCONTRAST CT OF THE RIGHT HIP TECHNIQUE: Noncontrast CT of the RIGHT hip. with coronal and sagittal reformatted images. CLINICAL INFORMATION: right hip pain, lytic lesion COMPARISON: Radiograph 07/10/2022 and 08/22/2022 DLP: 524.[address] scans at [facility] use at least one of these dose optimization techniques: automated e xposure control; mA and/or kV adjustment per patient size (includes targeted exams where dose is matc hed to clinical indication); or iterative reconstruction. FINDINGS: Advanced osteoarthritis RIGHT hip with [id number] articulation involving the superolateral joint sp ester. Subchondral sclerosis with subchondral cystic change involving the femoral head and acetabulum. Associated hypertrophic changes and bony spurring. No acute fractures. No lytic lesions in the femoral neck. Degenerative arthritis RIGHT sacroiliac joint. Normal visualize d RIGHT pubic rami. Degenerative arthritis at the pubic symphysis. CT/CT hip RT wo con* [id number] IMPRESSION: 1. Advanced degenerative arthritis RIGHT hip with [id number] articulation. A ssociated sclerosis and subchondral cystic change. 2. No acute fractures. 3. No lytic lesions in the femoral neck.
== END 2022-09-04 13:48 | disposition home or self-care (01) ==
LOC: RAD 13:49
PROVIDERS: PCP Family Medicine; Visit Provider Specialist
DX: M16.11 Unilateral primary osteoarthritis, right hip (principal); M89.9 Disorder of bone, unspecified
CPT/HCPCS: 73700

== ENCOUNTER → 2023-01-07 13:42 | Outpatient (BNVA) | payer MEDICARE, MEDICAID, SELFPAY | PROVIDERS: Visit Provider Podiatrist Foot & Ankle Surgery | DX: R73.03 Prediabetes (principal); I73.9 Peripheral vascular disease, unspecified; L85.3 Xerosis cutis; B35.1 Tinea unguium | CPT/HCPCS: 99213 ==

== ENCOUNTER → 2023-03-11 10:09 | Outpatient (BNVA) | payer MEDICARE, SELFPAY | PROVIDERS: PCP Family Medicine; Visit Provider Nurse Practitioner Psychiatric/Mental Health | DX: Z79.899 Other long term (current) drug therapy (principal); F33.1 Major depressive disorder, recurrent, moderate; F51.04 Psychophysiologic insomnia; M54.9 Dorsalgia, unspecified; G89.29 Other chronic pain | CPT/HCPCS: 80053; 80061; 83036 ==

== ENCOUNTER → 2023-04-10 10:20 | Outpatient (BNVA) | payer OTHER, MEDICAID, SELFPAY | PROVIDERS: PCP Family Medicine; Visit Provider Specialist | DX: M16.11 Unilateral primary osteoarthritis, right hip | CPT/HCPCS: 73502 ==

== ENCOUNTER 2023-04-11 11:57 | Outpatient (CLI) | payer OTHER, MEDICAID, SELFPAY ==
[2023-04-11 12:49] LABS: Basophils # 0.1 10^3/uL (0.0-0.1); Basophils % 0.6 %; Eosinophils # 0.3 10^3/uL (0.0-0.8); Hematocrit 41.8 % (36-47); Lymphocytes # 3.1 10^3/uL (0.8-4.8); Lymphocytes % 36.3 %; Mean Corpuscular HGB Conc 32.3 g/dL (30-55); Mean Corpuscular Hemoglobin 28.7 pg (27-33); Mean Corpuscular Volume 88.9 fl (85-98); Monocytes # 0.4 10^3/uL (0.2-0.9); Monocytes % 5.2 %; Neutrophils % 54.7 %; Nucleated Red Blood Cells % 0 %; Platelet Count 420 10^3/cmm (157-399); Red Cell Distribution Width 13.1 % (12.1-15.1); White Blood Count 8.41 10^3/uL (3.29-11.43)
[2023-04-11 13:07] LABS: Alanine Aminotransferase 28 U/L (0-33); Albumin Level 3.9 g/dL (3.5-5.2); Alkaline Phosphatase 134 U/L (35-105); Aspartate Amino Transferase 20 U/L (0-32); Blood Urea Nitrogen 16 mg/dL (8-23); Calcium 9.5 mg/dL (8.5-10.5); Carbon Dioxide 32 mmol/L (22-29); Chloride 101 mmol/L (98-107); Globulin 3.2 g/dL (1.3-4.6); Glucose 131 mg/dL (65-115); Osmolality Calculated 293 mOsm/kg (285-295); Sodium 140 mmol/L (136-145); Total Bilirubin 0.2 mg/dL (0.15-1.2); Total Protein 7.1 g/dL (6.6-8.7)
[2023-04-11 13:09] LABS: Add Urine Microscopic? YES; Bilirubin Urine Neg (Negative); Blood Urine Neg (Negative); Glucose Urine UA Norm (Normal); Ketones Urine 1+ (Negative); Leukocyte Esterase Urine Negative (Negative); Nitrate Urine Negative (Negative); Protein Urine Neg (Negative); Specific Gravity, Urine 1.015 (1.005-1.030); Urine Appearance Hazy (CLEAR); Urine Color Yellow (Yellow); Urobilinogen Urine Norm (Negative); pH Urine 6 (5-7)
[2023-04-11 13:11] LABS: WBC Urine 0-4 /hpf (0-5)
[2023-04-11 13:12] LABS: Add Urine Culture? No; Amorphous Sediment Urine TRACE /hpf; Bacteria Urine 1+ /hpf; Mucus Urine 2+ /hpf; Transitional Epi Cells Urine 0-4 /hpf
== END 2023-04-11 11:58 | disposition home or self-care (01) ==
LOC: LAB 12:00
PROVIDERS: PCP Family Medicine; Visit Provider Specialist
DX: Z01.818 Encounter for other preprocedural examination (principal)
CPT/HCPCS: 36415; 80053; 81001; 85025

== ENCOUNTER 2023-04-18 10:03 | Outpatient (CLI) | payer MEDICARE, SELFPAY ==
--- NOTE | 2023-04-18 11:51 | OP.DCCON ---
Reason for Visit: E66.9 - Obesity, unspecified Person Interviewed: Patient Medical History, Labs and Background: Weight gain of almost 50lbs in last two-three years, depression-ongoing/recurrent, hip replacement scheduled for next week, HTN Height: 5 ft 2 in Weight: 198 lb BMI: 36.3 kg/m2 IBW: Pt is comfortable @ 150lbs Weight History: Santa said that before having children she was 118lbs. Then she gained weight and was approximately 150lbs - which she calls her usual weight which was in 2020. Concerns and Goals: In the past 2-3 years she said she has been eating terribly and would like to change that and lose weight. Santa stated that when she is down, she eats. Next Saturday she will have a hip replacement and is excited for rehab and then a trip to [place] to care for her Mom - then she can start being active again. Sleep Hygiene: In general she said she sleeps pretty good - she might get up a couple of times to go to the bathroom but can usually go right back to sleep. Physical Activity: Because of her hip she can't move much. Her favorite thing is to ride horses and she wants to get back to that. GI Symptoms: Constipation Feeding Issues: Dentures Other Feeding Issues: She doesn't have a BM everyday, but doesn't struggle with constipation - regularity varies. Recently she got upper dentures and is still getting used to them. Though she likes crunchy food, she has to be careful with what she eats. Food Allergies and Sensitivities: NKA to food - is wary of chocolate. 24 Hour Recall: Breakfast Time: 9-10am Coffee w/cream and sugar/ instant oatmeal or frosted mini wheats Snack Time: snacks throughout the day Lunch Time: Snack Time: Dinner Time: 5-6pm TV dinner or spaghetti - uses [employer] Snack Time: snacks after dinner til bedtime at 9:30-10:30pm Eating Out: She rarely eats out and couldn't name the last time she ate at a restaurant. Soda vs Milk vs Water: Santa isn't much of a soda drinker and tries to drink around 2 tall glasses milk/week and close to 3 liters water/day. Additional Comments: Because she isn't hungry between meals, Santa grazes, so we discussed protein/calorie dense, healthy snacks. We also talked about asking herself is she hungry and is she full when she eats a meal so that she can identify if she is eating from her mood or true hunger and she can learn to listen to her body and try to stop when she is full. Recommendations: Assessment: Santa wants to get back to her comfortable weight of 150lbs. We talked about a 10% wt loss initially and settled on the first goal being 175lbs. A motivation for exercise is to ride horses again so she is hoping to rehab her hip and get back in the saddle. Her recent purchase of any[employer] microwave cookware has helped her move away from TV dinners which I encouraged. We also talked about healthy snacks since she eat maybe 2 meals/day and to continue with drinking 48-64 ounces water/day. Diagnosis: Excessive energy intake r/t habits and patterns AEB BMI of 36.3 kg/m2 (class 2 obesity). Intervention: We discussed healthy snacks and made a list on her goal sheet. Part of that would be shopping and planning so as to have the food choices she wants to have available. Her water intake is close to 3 liters a day, but I wasn't sure if that was true or aspirational. We made that a goal as well because that would also aid regularity. Part of the healthy snacks was to include more fruits and vegetables since they were lacking in her 24 hour recall and our general discussion. Lastly we discussed the 2 questions - am i hungry and am I full - to help her begin to listen to her bodies cues and not be driven to eat by emotions. Monitoring and Evaluation: At the bottom of her goal sheet is my email and office number/extension for follow up questions. Coding Level of Care Code Nutrition/Individ/Init 60 min Time Spent (min) 60
== END 2023-04-18 10:04 | disposition home or self-care (01) ==
LOC: DIET 10:04
PROVIDERS: PCP Family Medicine; Visit Provider Family Medicine
DX: Z01.818 Encounter for other preprocedural examination (principal); E66.9 Obesity, unspecified; Z68.36 Body mass index [BMI] 36.0-36.9, adult
CPT/HCPCS: 81003; 87077; 87086; 97802

== ENCOUNTER 2023-04-23 17:30 | Observation (INO) | payer MEDICARE, SELFPAY ==
[2023-04-23] VITALS (24 sets, daily range): BP systolic 88–142; BP diastolic 42–82; PULSE 72–88; RESP 8–19; TEMP 36.2–37.1; O2SAT 92–100; BMI 36.2
--- NOTE | 2023-04-23 09:27 | ECG_ITS ---
[facility] Test Date: 2023-04-23 Pat Name: Santa Chi Department: Room: Gender: Female Sewage Plant Attendant: : 1955 Requested By: Patricia Ramírez Order Number: [id number] Craft MD: Terry Gutierres M.D. Measurements Intervals Morton Rate: 76 P: 49 WA: 154 QRS: 5 QRSD: 90 T: 40 QT: 384 QTc: 432 Interpretive Statements SINUS RHYTHM Compared to ECG 08/17/2019 02:33:35 No significant changes Electronically Signed On 04-23-2023 20:14:47 PHYSICAL OPTICS TEACHER by Terry Gutierres M.D. [id number]
[2023-04-23] MEDS: gabapentin 300 mg Capsule PO (10:09)
[2023-04-23] MEDS: sodium chloride 0.9% 1,000 ML 30 ML IV (10:09)
[2023-04-23] MEDS: acetaminophen 1,000 MG/100 ML PIGGYBACK 400 MG IV ×2 (10:09→18:41)
[2023-04-23] MEDS: CELEcoxib 200 mg Capsule 400 MG PO (10:09)
--- NOTE | 2023-04-23 10:27 | W.PM.OPSUD ---
Surgery/Procedure H&P Update DATE OF PROCEDURE: April 23, 2023 DATE H&P PERFORMED: 04/10/23 H&P UPDATE INFORMATION: I have reviewed H&P completed within last 30 days, I have examined patient prior to procedure, No changes to prior documentation and H&P is in [facility] EMR on date indicated PLANNED PROCEDURE: Operation Date: 04/23/23 11:10 Proposed Procedures p Total Hip Arthroplasty(Right) - Ella Schultz MD Related Problem List Diagnoses (1) Arthritis of right hip:
--- NOTE | 2023-04-23 10:38 | ANES.PREANE2 ---
Pre-Anesthetic Assessment Height/Weight: Height 1.57 m Weight 89.811 kg Temp Pulse Resp BP Pulse Ox O2 Del Method 98.2 F 81 18 127/69 94 Room Air 04/23/23 09:43 04/23/23 09:43 04/23/23 09:43 04/23/23 09:43 04/23/23 09:43 04/23/23 09:45 Operation Date: 04/23/23 11:10 Proposed Procedures p Total Hip Arthroplasty(Right) - Ella Schultz MD Familial anesthetic complications: None Was Beta Gordon taken within 24 hours: N/A Was Clonidine taken within 24 hours: N/A Last intake: Intake Last Liquid Date 04/22/23 Last Liquid Time 18:00 Last Solid Date 04/22/23 Last Solid Time 18:00 Social No alcohol and No tobacco Exam alert, oriented x 3, clear to auscultation bilaterally and regular rate & rhythm Airway Mallampati: Class III Dentition: other (No teeth) Pulmonary Sleep Apnea CV/HEM Arrythmia (tachycardia), Deep Vein Thrombosis (unprovoked - hold eliquis for 6 hrs after procedure) and Peripheral Vascular Disease Anesthetic Plan ASA status: 3 Anesthesia: General and Regional (specify below) (spinal) Risk of > 500 ml blood loss (7ml/kg in children): No Medications/Allergies Home Medications Medication Instructions Recorded Confirmed Last Taken Type calcium carbonate 600 mg calcium 600 mg PO DAILY 08/20/19 04/22/23 04/22/23 History (1,500 mg) tablet multivitamin 1 cap PO DAILY 08/20/19 04/22/23 04/18/23 History melatonin 10 mg capsule 10 mg PO .at bedtime 30 days #30 03/07/21 04/22/23 04/22/23 Rx caps incontinence underwear #90 ea 01/16/23 04/10/23 Unknown Rx atorvastatin 40 mg tablet 40 mg PO DAILY #90 tabs 02/05/23 04/22/23 04/22/23 Rx metoprolol succinate 50 mg 50 mg PO DAILY 90 days #90 tabs 02/19/23 04/22/23 04/23/23 07:30 Rx tablet,extended release 24 hr amitriptyline 50 mg tablet 50 mg PO .q hs #90 tabs 03/11/23 04/22/23 04/22/23 Rx aripiprazole 2 mg tablet 2 mg PO .q am #90 tabs 03/11/23 04/22/23 04/22/23 Rx duloxetine 60 mg capsule,delayed 120 mg (2 x 60 mg) PO .q am #180 03/11/23 04/22/23 04/22/23 Rx release caps omeprazole 40 mg capsule,delayed See Rx Instructions .Route 03/19/23 04/22/23 04/23/23 07:30 Rx release .COMPLEX #90 caps meloxicam 15 mg tablet See Rx Instructions .Route 04/12/23 04/22/23 04/19/23 Rx .COMPLEX #30 tabs pregabalin 75 mg capsule (Lyrica) 75 mg PO BID 30 days #60 caps 04/17/23 04/22/23 04/22/23 Rx Allergies Allergy/AdvReac Type Severity Reaction Status Date / Time morphine AdvReac Mild ADR-Abdominal Verified 04/23/23 09:47 pain Current Medications Generic Name Dose Route Start Last Admin Trade Name Freq PRN Reason Stop Dose Admin Sodium Chloride 1,000 mls @ 30 mls/hr 04/23/23 08:45 04/23/23 10:09 Sodium Chloride 0.9% IV 04/24/23 08:44 30 mls/hr .Q24H DEYSI Administration PFSH Anesthesia Medical History Poor dentition Arthritis of right hip PAD (peripheral artery disease) Obesity, Class II, BMI 35-39.9 TREMAINE (obstructive sleep apnea) GERD (gastroesophageal reflux disease) Facet arthritis, degenerative, lumbar spine Major depressive disorder, recurrent, moderate Left leg DVT Peripheral neuropathy Hypertension Hyperlipidemia Prediabetes Hx of non-ST elevation myocardial infarction (NSTEMI) Chronic migraine Tachycardia Surgical History Previous back surgery L4-L5 H/O rotator cuff surgery Right H/O section x2 Family History Father Dementia Stroke Social History Smoking and tobacco/nicotine status: former use of tobacco/nicotine Second hand smoke exposure: No Alcohol intake: current Alcohol intake frequency: holidays/special occasions only Substance/Drug Use: never Do you think of yourself as: Straight/Heterosexual Current gender identity: Female Female Reproductive History Spontaneous abortions: No Data Anesthesia Cardiac Studies: Echocardiogram Ultrasound 08/17/19
[2023-04-23] MEDS: ceFAZolin 2,000 MG in sodium chloride 0.9% (plus) 50 ML 100 MG IV ×2 (11:04→18:41)
[2023-04-23] MEDS: tranexamic acid 1,000 mg/10mL SDV 1000 MG IV (11:17)
[2023-04-23] MEDS: thrombin 5,000 unit SDV 5000 UNIT XX (12:05)
[2023-04-23] MEDS: vancomycin 1,000 MG SDV 1000 MG INTRA-ARTI (12:08)
[2023-04-23] MEDS: ceFAZolin 1,000 mg SDV 1000 MG IRRIGATION (12:09)
--- NOTE | 2023-04-23 14:19 | PM.OP ---
Operative Report Date of procedure: April 23, 2023 Pre-op diagnosis: Severe degenerative osteoarthritis right hip with contracture Post-op diagnosis: Severe degenerative osteoarthritis right hip with contracture Post-op findings: Severe degenerative osteoarthritis, large osteophytes, a large cyst in the posterior medial acetabulum. In addition to flexion contracture of the hip, there was an adduction contracture as well. Procedure done: Right total hip arthroplasty with bone grafting of the large cyst utilizing DBM plus putty with cancellous chips. Adductor tenotomy Implants: The Dupont total hip system with a size 52 mm by E alpha code Trident II Tritanium acetabular shell with an MDM liner size 42 mm inner diameter by E alpha code.? A size 5 Accolade II 127? neck angle hip stem with a size 28 mm x -4 mm femoral head and a spiritism MDM X3 insert size 28 mm x 42E Specimens removed/disposition: Femoral head, disposed of Surgeon: Ella Schultz MD Guest Relations Executive: Marcia Mata, nurse practitioner, who services were required for positioning, exposure, manipulation, retraction, and closure. Anesthesia: General (Intubated, ASA 3) Estimated blood loss (mL): 600 IV fluids (mL): 2,000 Urine output (mL): 200 Complications: None Findings: Large cyst within the acetabulum. Flexion and adduction contracture. Postoperatively, the patient was stable at 90 degrees of flexion with 30 degrees of adduction and 80 degrees of internal rotation. She was also stable to toe hang and external rotation. Condition: stable Disposition: PACU (Then to floor for postoperative rehabilitation and pain management) Brief History: This 67-year-old woman presented to the hospital today for same-day surgery involving right total hip arthroplasty. The patient had longstanding symptoms related to her right hip. Additionally, she has a history of 2 lumbar fusions and multiple injections into the lumbar spine. Right hip pain has been present for nearly 3 years at this point. She denied any injury or trauma. Primary complaints included pain, stiffness, and limited range of motion. The patient was unable to stand or walk long distances. In fact, when she was seen in the office, she would frequently use a wheelchair. She used a cane at home. Risks and complications of surgery were discussed with the patient. Consents were signed preoperatively. Questions were answered at that time. Procedure: Patient was brought to the operating theater.? She was transferred to the operating room table and subsequently administered a general anesthesia, intubated, ASA 3.? Following administration of adequate anesthesia, the patient was placed in full lateral position and held in position with a pegboard.? The patient's right lower extremity was then prepped and draped in usual fashion utilizing DuraPrep.? It was draped free.? Prepping and draping were both quite difficult secondary to the patient's significant contractures. Following prepping and draping, a surgical pause was performed.? At the time of surgical pause, we identified the site and side of surgery.? We also identified the patient and preoperative surgical markings.?The patient's operative leg was compared to the opposite leg as a length comparison.? Confirmation was made of equipment availability.? Additionally, the patient's preoperative IV antibiotic, Ancef 2 g, and TXA administration was confirmed as well.? X-rays were also reviewed. Following the surgical pause, an incision was made centering over the patient's greater trochanter continuing proximally and distally as necessary to allow access to the hip joint.? Dissection continued through skin and soft tissues using a scalpel, and hemostasis was obtained using electrocautery. The tensor fascia davina was identified and incised longitudinally.? Sciatic nerve was identified and protected throughout the surgical procedure.? A Charnley U retractor was placed after the tensor fascia davina had been incised longitudinally, and the sciatic nerve had been identified.? The hip was internally rotated, and the piriformis muscle was identified and tagged. Piriformis muscle along with the remaining short external rotators were then incised from the posterior aspect of the hip joint.? These were retracted posteriorly.? The capsule was entered in a T-type fashion with the edges being tagged, and subsequently the hip was dislocated.? The labrum was excised with further excision accomplished once the femoral head was removed.? Following hip dislocation, a femoral neck osteotomy was accomplished in the appropriate position.? The head was measured, but it was quite deformed.? We then evaluated the acetabulum. The femur was retracted anteriorly.? Soft tissues were retracted, and the labrum was removed.? Labrum was noted to be quite large and deformed. We then began reaming.? Once the femoral head was removed, there was noted to be significant loss of cartilage over the head with the previously noted deformity and cartilage loss within the acetabulum.? We reamed to a size 51 to allow for a size 52 acetabular shell.? There was noted to be a large posterior medial cyst. This was bone grafted with Dupont DBM putty with cancellous bone chips. The reamer was used on reverse to impact this material into the cyst in addition to manual packing. The acetabulum was impacted into position.? The MDM liner was then impacted into position with care being taken to assure it seated appropriately.? Upon evaluation of the cup, it was noted that the liner had indeed spun a couple of degrees from appropriate position. We were unable to remove the metal liner from the cup, therefore, the cup was removed. A new cup of the same size was obtained and was impacted into position uneventfully. The liner was impacted into this cup without event. It was noted that the acetabulum matched the bony anatomy.? The cup was noted to seat nicely and had good fixation upon impact. Large osteophytes were removed from the posterior aspect of the acetabulum following cup insertion. Attention was directed to the proximal femur.? The proximal femur was lifted out of the wound.? A canal finder was passed after the box chisel.? The reamer was used to lateralize.? We then began broaching. We broached sequentially and had excellent fit and fill with the size 5 broach. ? A trial reduction was attempted with a +0 mm femoral head initially, but the hip was noted to be quite tight. We were unable to fully extend the hip. There also was noted to be a very tight adductor at that time. Further trial reductions were accomplished with the -4 mm offset femoral head and the -2.7 mm offset femoral head. Both gave essentially equal stability. The hip was noted to be very tight and abduction as well as extension. It was felt that leg length was appropriate with a -4 mm offset femoral head, and therefore, these were the chosen components. With the trial reduction, we also elected to proceed with an adductor tenotomy after full closure of the total hip and the patient being able to be supine. With the final construct as noted, we had the above-noted stabilities and appropriate leg length. Therefore, trial components were removed after the hip was dislocated.? The size 5 Accolade II 127? neck angle stem was impacted into position without difficulty and onto this was placed a -4 mm x 28 mm femoral head which had been assembled into the MDM insert size 42E.? With a -4 mm femoral head, we had the above-noted stability.? The stem was noted to seat nicely prior to placement of the femoral head.? The wound was copiously irrigated with 20 mL of Betadine and 500 mL of normal saline mixed together.? Subsequently, we suctioned this out and irrigated the wound copiously with lactated Ringer's.? At this time, with all components in appropriate position, the hip was reduced.? Following reduction of the prosthesis once again, we confirmed the stability of the hip.? Leg lengths were also felt to be satisfactory. Being satisfied with the prosthesis, attention was directed to closure.? Closure was accomplished with 0 Vicryl in the capsular tissues.? Piriformis was reattached with 0 Vicryl as well.? Tensor fascia davina was closed with 0 Vicryl in an interrupted fashion.? The subcutaneous tissues were closed with combination of 0 Vicryl and 2-0 Monocryl.? Vancomycin powder and a Gelfoam thrombin mixture was placed into the wound as well.? The skin was closed with a running 3-0 Monocryl followed by Dermabond Prineo and Silverlon. The patient was placed in an abduction pillow.? She was then turned supine. The groin area was prepped, and an adductor tenotomy was performed with excellent improvement of motion. The area was then cleaned following the surgical release. 4 x 4's were placed into the groin area over the area of incision. The adductor pillow was again placed. Patient was transferred off the operative bed and was brought to the recovery room in a satisfactory condition. She will be discharged to the floor for postoperative rehabilitation and pain management. There were no complications and no specimens. Related Problem List Diagnoses (1) Arthritis of right hip: (2) Contracture of adductor muscle of hip: (3) Flexion contracture of right hip:
--- NOTE | 2023-04-23 15:00 | XR_ITS ---
WS: [id number] XR pelvis 1-2V* [id number] REASON FOR EXAM: Status post right total hip arthroplasty FINDINGS: Total right hip arthroplasty. Prosthetic components are intact and in proper position and alignment. No bony abnormality. IMPRESSION: Total right hip arthroplasty without abnormality.
[2023-04-23] MEDS: fentaNYL 50 mcg/mL INJ 2mL IVP (15:25)
[2023-04-23] MEDS: ondansetron 2 mg/ML SDV 2 mL 4 MG IVP ×2 (16:00→16:54)
--- NOTE | 2023-04-23 17:42 | PC.PT ---
No orders as of 5:15 pm. Will recheck in the AM to see patient.
[2023-04-23] MEDS: iron polysaccharide complex 150 mg Capsule PO (18:41)
[2023-04-23] MEDS: pregabalin 75 mg Capsule PO (18:51)
[2023-04-23 20:02] LABS: Hematocrit 32.7 % (36-47)
[2023-04-23] MEDS: amitriptyline 25 mg Tablet 50 MG PO (20:07)
[2023-04-23] MEDS: chlorhexidine gluconate 0.12% Btl 473 mL 30 ML MUCOUS MEM (20:08)
[2023-04-23] MEDS: oxyCODONE 5 mg IR Tab/Cap PO (23:01)
[2023-04-24] VITALS (8 sets, daily range): BP systolic 74–101; BP diastolic 38–62; PULSE 68–92; RESP 16–18; TEMP 36.4–36.7; O2SAT 90–96
[2023-04-24] MEDS: acetaminophen 1,000 MG/100 ML PIGGYBACK 400 MG IV ×2 (01:38→11:08)
[2023-04-24] MEDS: ceFAZolin 2,000 MG in sodium chloride 0.9% (plus) 50 ML 100 MG IV ×2 (03:29→11:09)
[2023-04-24] MEDS: ARIPiprazole 2 mg Tablet PO (05:28)
[2023-04-24] MEDS: duloxetine 60 mg Capsule 120 MG PO (05:28)
[2023-04-24 05:29] LABS: Basophils % 0.2 %; Hematocrit 29.8 % (36-47); Lymphocytes # 1.7 10^3/uL (0.8-4.8); Lymphocytes % 17.4 %; Mean Corpuscular HGB Conc 31.9 g/dL (30-55); Mean Corpuscular Hemoglobin 28.9 pg (27-33); Mean Corpuscular Volume 90.6 fl (85-98); Mean Platelet Volume 9.2 fL (7.4-10.4); Monocytes # 0.6 10^3/uL (0.2-0.9); Monocytes % 6.2 %; Neutrophils # 7.55 10^3/uL (1.8-7.7); Neutrophils % 75.8 %; Nucleated Red Blood Cells % 0 %; Platelet Count 310 10^3/cmm (157-399); Red Blood Count 3.29 10^6/uL (3.85-5.65); Red Cell Distribution Width 13.3 % (12.1-15.1); White Blood Count 9.96 10^3/uL (3.29-11.43)
[2023-04-24] MEDS: oxyCODONE 5 mg IR Tab/Cap PO ×2 (05:32→11:16)
[2023-04-24 05:47] LABS: Anion Gap 13.3 (5-19); Blood Urea Nitrogen 13 mg/dL (8-23); Calcium 8.3 mg/dL (8.5-10.5); Carbon Dioxide 28 mmol/L (22-29); Chloride 102 mmol/L (98-107); Glucose 144 mg/dL (65-115); Osmolality Calculated 291 mOsm/kg (285-295); Potassium 4.3 mmol/L (3.5-5.1); Sodium 139 mmol/L (136-145)
[2023-04-24] MEDS: pregabalin 75 mg Capsule PO ×2 (08:46→17:19)
[2023-04-24] MEDS: multivitamin therapeutic Tablet 1 TAB PO (08:46)
[2023-04-24] MEDS: meloxicam 7.5 mg tablet 15 MG PO (08:46)
[2023-04-24] MEDS: atorvastatin 40 mg Tablet PO (08:46)
[2023-04-24] MEDS: cholecalciferol (vitamin D3) 1,000 unit Tablet 1000 UNIT PO (08:46)
[2023-04-24] MEDS: calcium carbonate 500 mg Chew Tablet 1000 MG PO ×2 (08:46→17:19)
[2023-04-24] MEDS: metoprolol succinate ER (24 HR) 50 mg Tablet PO (08:47)
[2023-04-24] MEDS: chlorhexidine gluconate 0.12% Btl 473 mL 30 ML MUCOUS MEM ×3 (08:47→20:41)
[2023-04-24] MEDS: iron polysaccharide complex 150 mg Capsule PO ×2 (08:47→17:19)
[2023-04-24] MEDS: sennosides-docusate Tablet 2 TAB PO ×2 (08:47→17:19)
[2023-04-24] MEDS: pantoprazole DR 40 mg Tablet PO (08:48)
[2023-04-24] MEDS: mupirocin oint 22 gm 1 APPLIC NASAL ×2 (08:53→17:19)
--- NOTE | 2023-04-24 13:23 | P.PN_ITS ---
Subjective 2 Subjective: Patient is seen in her room. She has been having episodes of hypotension, but she has been asymptomatic with these. During her surgery, she was rather volatile. Medications: Reviewed: Yes Vitals/I&O/Wt Last Vital Signs Temp 98.1 F 04/24/23 08:00 Pulse 92 04/24/23 08:00 Resp 17 04/24/23 11:16 BP 101/58 04/24/23 08:00 Pulse Ox 95 04/24/23 08:35 O2 Del Method Room Air 04/24/23 08:35 O2 Flow Rate 1 04/23/23 18:18 04/23/23 04/24/23 04/24/23 22:59 06:59 14:59 Intake Total 250 / 2350 150 / 2500 580 / 580 Output Total 1000 / 1950 Balance 250 / 1400 -850 / 550 580 / 580 Weight last 48 hrs Weight 208 lb 11.2 oz Weight 198 lb Physical Exam 2 Const: COMMON NORMALS: no acute distress, average body habitus, patient oriented x3 and alert GENERAL APPEARANCE: cooperative and comfortable O RIENTATION/CONSCIOUSNESS: Yes awake HENMT: COMMON NORMALS: normocephalic and atraumatic HEAD & SCALP: n ormocephalic and atraumatic Eye: GENERAL EYE: appearance normal, both eyes and all related structures Chest: COMMONS NORMALS: normal inspection of the chest Resp: COMMON NORMALS: normal respiratory effort EFFORT & INSPECTION: Yes able to speak in complete sentences and Yes symmetric chest movement Extremity: RIGHT LOWER EXTREMITY: Yes hip joint (Dressing dry and intact) Right hip: Yes neurovascular exam (Intact distally) Neuro: COMMON NORMALS: patient oriented x3 SENSORIUM/ORIENTATION: Yes alert Psych: COMMON NORMALS: mental status grossly normal APPEARANCE: Yes grossly normal ATTITUDE: Yes calm and Yes engaged ATTENTION/CONCENTRATION: Yes attention grossly intact Skin: COMMON NORMALS: no rashes or lesions noted GENERAL SKIN EXAM: no rashes or lesions noted Urinary Catheter Management: Roper: Cath Placed During This Visit: yes, but has since been removed by the nurse Reason for Continuing Indwelling Catheter: Decision to DC Catheter Urinary Catheter Date of Insertion: 04/23/23 Urinary Catheter Time of Insertion: 11:20 Date Urinary Catheter Removed: 04/24/23 Time Urinary Catheter Discontinued: 05:52 Data 04/24/23 05:03 04/24/23 05:03 A&P Assessment and plan (1) Arthritis of right hip: Patient underwent same-day surgery for right total hip arthroplasty. This was well-tolerated. She is seen on postop day 1 and is doing well. She has been hypotensive since her surgery, and during surgery, she was volatile with her pressures. She has been asymptomatic. Plans are that she will likely require fpc for ongoing rehabilitation. She has not been able to participate fully in physical therapy at this time. (2) Contracture of adductor muscle of hip: (3) Flexion contracture of right hip: Attestations 2 Medical Necessity Statement*: Ongoing rehabilitation following total hip arthroplasty Coding Level of Care Code Acute Code for [facility] Diagnoses Arthritis of right hip M16.11 Contracture of adductor muscle of hip M62.459 Flexion contracture of right hip M24.551
[2023-04-24] MEDS: acetaminophen 500 mg Tablet 1000 MG PO ×2 (15:37→22:31)
[2023-04-24] MEDS: sodium chloride 0.9% 500 ML IV (16:51)
[2023-04-24] MEDS: amitriptyline 25 mg Tablet 50 MG PO (20:41)
[2023-04-25] VITALS (8 sets, daily range): BP systolic 76–116; BP diastolic 49–69; PULSE 84–105; RESP 17; TEMP 36.6–36.9; O2SAT 91–96
[2023-04-25] MEDS: acetaminophen 500 mg Tablet 1000 MG PO ×3 (06:17→22:51)
[2023-04-25] MEDS: duloxetine 60 mg Capsule 120 MG PO (06:17)
[2023-04-25] MEDS: ARIPiprazole 2 mg Tablet PO (06:17)
[2023-04-25] MEDS: pregabalin 75 mg Capsule PO ×2 (08:06→16:56)
[2023-04-25] MEDS: calcium carbonate 500 mg Chew Tablet 1000 MG PO ×2 (08:06→16:56)
[2023-04-25] MEDS: multivitamin therapeutic Tablet 1 TAB PO (08:06)
[2023-04-25] MEDS: sennosides-docusate Tablet 2 TAB PO ×2 (08:06→16:56)
[2023-04-25] MEDS: apixaban 5 mg Tablet 2.5 MG PO ×2 (08:06→16:56)
[2023-04-25] MEDS: atorvastatin 40 mg Tablet PO (08:06)
[2023-04-25] MEDS: iron polysaccharide complex 150 mg Capsule PO ×2 (08:06→16:56)
[2023-04-25] MEDS: meloxicam 7.5 mg tablet 15 MG PO (08:06)
[2023-04-25] MEDS: cholecalciferol (vitamin D3) 1,000 unit Tablet 1000 UNIT PO (08:06)
[2023-04-25] MEDS: pantoprazole DR 40 mg Tablet PO (08:06)
--- NOTE | 2023-04-25 09:13 | PC.NURSE ---
Manual BP of 76/52 per SUZANNE Garcia. This nurse notified Dr. Schultz who discussed having Dr. Dupont consult with pt as her pressures have been soft. Confirmed that no BP meds or pain meds were given this morning.
--- NOTE | 2023-04-25 09:34 | P.CONIM_ITS ---
Documented by User: annie Moran 04/25/23 09:50 Providers/Reason For Consult 2 Consulting Physician/Specialty*: Julian Dupont MD - Hospitalist Reason for Consult*: Hypotension Requesting Physician: Ella Schultz MD Attending Physician: Ella Schultz MD Primary Care Provider: Gino Recio MD History of Present Illness History of Present Illness Patient is a 67-year-old female with a past medical history of hyperlipidemia, hypertension, neuropathy, GERD, TREMAINE, PAD, MDD, who underwent a right total hip arthroplasty on 04/23/2023. Uneventful procedure with no complications per operative note. EBL of 600 mL. Since procedure, patient has been slightly hypotensive with systolics sustaining in the 90s. This a.m.'s blood pressure was 76/52. Patient reports mild weakness but denies any dizziness while standing or ambulating. Patient reports that she is tolerating physical therapy fair. Denies any nausea, vomiting, chest discomfort, or shortness of breath. Review of Systems 2 Narrative: Comprehensive 10 point ROS is negative except as noted in the HPI above. Medications/Allergies Home Medications Medication Instructions Recorded Confirmed Last Taken Type calcium carbonate 600 mg calcium 600 mg PO BID 08/20/19 04/24/23 04/22/23 History (1,500 mg) tablet multivitamin 1 cap PO DAILY 08/20/19 04/22/23 04/18/23 History incontinence underwear #90 ea 01/16/23 04/24/23 Unknown Rx atorvastatin 40 mg tablet 40 mg PO DAILY #90 tabs 02/05/23 04/22/23 04/22/23 Rx metoprolol succinate 50 mg 50 mg PO DAILY 90 days #90 tabs 02/19/23 04/22/23 04/23/23 07:30 Rx tablet,extended release 24 hr amitriptyline 50 mg tablet 50 mg PO .q hs #90 tabs 03/11/23 04/22/23 04/22/23 Rx aripiprazole 2 mg tablet 2 mg PO .q am #90 tabs 03/11/23 04/22/23 04/22/23 Rx duloxetine 60 mg capsule,delayed 120 mg (2 x 60 mg) PO .q am #180 03/11/23 04/22/23 04/22/23 Rx release caps omeprazole 40 mg capsule,delayed See Rx Instructions .Route 03/19/23 04/22/23 04/23/23 07:30 Rx release .COMPLEX #90 caps pregabalin 75 mg capsule (Lyrica) 75 mg PO BID 30 days #60 caps 04/17/23 04/22/23 04/22/23 Rx melatonin 10 mg tablet 20 mg PO BEDTIME 04/24/23 04/24/23 04/22/23 History Allergies Allergy/AdvReac Type Severity Reaction Status Date / Time morphine AdvReac Mild ADR-Abdominal Verified 04/23/23 09:47 pain Current Medications Generic Name Dose Route Start Last Admin Trade Name Alexisq PRN Reason Stop Dose Admin Acetaminophen 1,000 mg 04/24/23 15:00 04/25/23 06:17 Acetaminophen 500 Mg Tablet PO 1,000 mg Q8H DEYSI Administration Amitriptyline HCl 50 mg 04/23/23 21:00 04/24/23 20:41 Amitriptyline 25 Mg Tablet PO 50 mg BEDTIME DEYSI Administration Apixaban 2.5 mg 04/24/23 09:00 04/25/23 08:06 Apixaban 5 Mg Tablet PO 2.5 mg BID DEYSI Administration Aripiprazole 2 mg 04/24/23 06:00 04/25/23 06:17 Aripiprazole 2 Mg Tablet PO 2 mg QAM DEYSI Administration Atorvastatin Calcium 40 mg 04/24/23 09:00 04/25/23 08:06 Atorvastatin 40 Mg Tablet PO 40 mg DAILY DEYSI Administration Calcium Carbonate 1,000 mg 04/23/23 18:00 04/25/23 08:06 Calcium Carbonate 500 Mg Chew Tablet PO 1,000 mg BID DEYSI Administration Chlorhexidine Gluconate 30 ml 04/23/23 17:54 04/25/23 08:06 Chlorhexidine Gluconate 0.12% Btl 473 Ml MUCOUS MEM Not Given QID DEYSI Duloxetine HCl 120 mg 04/24/23 06:00 04/25/23 06:17 Duloxetine 60 Mg Capsule PO 120 mg QAM DEYSI Administration Meloxicam 15 mg 04/24/23 09:00 04/25/23 08:06 Meloxicam 7.5 Mg Tablet PO 15 mg DAILY DEYSI Administration Metoprolol Succinate 50 mg 04/24/23 09:00 04/24/23 08:47 Metoprolol Succinate Er (24 Hr) 50 Mg Tablet PO 50 mg DAILY DEYSI Administration Multivitamins Therapeutic 1 tab 04/24/23 09:00 04/25/23 08:06 Multivitamin Therapeutic Tablet PO 1 tab DAILY DEYSI Administration Mupirocin 1 applic 04/23/23 18:00 04/25/23 08:07 Mupirocin Oint 22 Gm NASAL 04/28/23 17:59 Not Given BID DEYSI Pantoprazole Sodium 40 mg 04/24/23 09:00 04/25/23 08:[address] 40 Mg Tablet PO 40 mg DAILY DEYSI Administration Polysaccharide Iron Complex 150 mg 04/23/23 18:00 04/25/23 08:06 Iron Polysaccharide Complex 150 Mg Capsule PO 150 mg BIDWM DEYSI Administration Pregabalin 75 mg 04/23/23 18:00 04/25/23 08:06 Pregabalin 75 Mg Capsule PO 75 mg BID DEYSI Administration Senna/Docusate Sodium 2 tab 04/23/23 18:00 04/25/23 08:06 Sennosides-Docusate Tablet PO 2 tab BID DEYSI Administration Vitamin D 1,000 unit 04/24/23 09:00 04/25/23 08:06 Cholecalciferol (Vitamin D3) 1,000 Unit Tablet PO 1,000 unit DAILY DEYSI Administration PFSH Acute 2 PFSH: Medical History Poor dentition Arthritis of right hip PAD (peripheral artery disease) Obesity, Class II, BMI 35-39.9 TREMAINE (obstructive sleep apnea) GERD (gastroesophageal reflux disease) Facet arthritis, degenerative, lumbar spine Major depressive disorder, recurrent, moderate Left leg DVT Peripheral neuropathy Hypertension Hyperlipidemia Prediabetes Hx of non-ST elevation myocardial infarction (NSTEMI) Chronic migraine Tachycardia Surgical History Previous back surgery L4-L5 H/O rotator cuff surgery Right H/O section x2 Family History Father Dementia Stroke Social History Smoking and tobacco/nicotine status: former use of tobacco/nicotine Second hand smoke exposure: No Alcohol intake: current Alcohol intake frequency: holidays/special occasions only Substance/Drug Use: never Do you think of yourself as: Straight/Heterosexual Current gender identity: Female Female Reproductive History: Spontaneous abortions: No Vitals/I&O/Wt Last Vital Signs Temp 98.3 F 04/25/23 04:00 Pulse 96 04/25/23 04:00 Resp 17 04/25/23 04:00 BP 76/52 04/25/23 08:00 Pulse Ox 94 04/25/23 04:00 O2 Del Method Room Air 04/25/23 04:00 O2 Flow Rate 1 04/23/23 18:18 04/24/23 04/25/23 04/25/23 22:59 06:59 14:59 Intake Total 740 / 1470 Balance 740 / 1470 Weight last 48 hrs Weight 96.7 kg Weight 94.665 kg Weight 89.811 kg Physical Exam 2 Narrative: General: Alert, obese, pleasant, pale Lymph: No lymphadenopathy noted Neck: Supple HEENT: Dry mucous membranes to oral mucosa. No erythema to oral mucosa. Respiratory: Lung sounds clear to auscultation. Room air. Cardio: RRR. No murmur. S1-S2. GI obese, nontender on palpation, active bowel sounds throughout. : Deferred Skin: Bandage in place to right lateral hip: No blood present, surrounding tissue intact. Urinary Catheter Management: Roper: Cath Placed During This Visit: yes, but has since been removed by the nurse Reason for Continuing Indwelling Catheter: Decision to DC Catheter Urinary Catheter Date of Insertion: 04/23/23 Urinary Catheter Time of Insertion: 11:20 Date Urinary Catheter Removed: 04/24/23 Time Urinary Catheter Discontinued: 05:52 Data 04/25/23 10:24 04/25/23 10:05 A&P Assessment and plan (1) S/P total right hip arthroplasty: Managed by orthopedic. Dressing dry and intact without erythema to outer border. Ambulating with physical therapy. EBL during procedure 600 mL. (2) Hypotension: Blood pressure noted to be 76/52. Previously 90's SBP the past 24 hours. Slightly tachcardic (HR 96). We will obtain CBC and BMP. Will administer 1 L NS bolus x 1 now. Recheck blood pressure after bolus is completed. Continue to hold metoprolol. Continue PT treatment. (3) Acute blood loss as cause of postoperative anemia: Plan Plan as stated above. Appreciate Consultation. On Eliquis for DVT prophylaxis CODE STATUS: Full code Coding Level of Care Code 75114 Diagnoses S/P total right hip arthroplasty Z96.641 Hypotension I95.9 Acute blood loss as cause of postoperative anemia D62 Time Spent (min) 44 Documented by User: Julian Dupont MD 04/25/23 10:37 History of Present Illness History of Present Illness Patient is a 67-year-old female with a past medical history of hyperlipidemia, hypertension, neuropathy, GERD, TREMAINE, PAD, MDD, who underwent a right total hip arthroplasty on 04/23/2023. Uneventful procedure with no complications per operative note. EBL of 600 mL. Since procedure, patient has been slightly hypotensive with systolics sustaining in the 90s. This a.m.'s blood pressure was 76/52. Patient reports mild weakness but denies any dizziness while standing or ambulating. Patient reports that she is tolerating physical therapy fair. Denies any nausea, vomiting, chest discomfort, or shortness of breath. Metoprolol, which the patient is on at home, is currently being held. She is not taking any significant amount of pain medications currently to contribute to her hypotension. Her baseline blood pressures, from previous visits appear normal. Medications/Allergies Home Medications Medication Instructions Recorded Confirmed Last Taken Type calcium carbonate 600 mg calcium 600 mg PO BID 08/20/19 04/24/23 04/22/23 History (1,500 mg) tablet multivitamin 1 cap PO DAILY 08/20/19 04/22/23 04/18/23 History incontinence underwear #90 ea 01/16/23 04/24/23 Unknown Rx atorvastatin 40 mg tablet 40 mg PO DAILY #90 tabs 02/05/23 04/22/23 04/22/23 Rx metoprolol succinate 50 mg 50 mg PO DAILY 90 days #90 tabs 02/19/23 04/22/23 04/23/23 07:30 Rx tablet,extended release 24 hr amitriptyline 50 mg tablet 50 mg PO .q hs #90 tabs 03/11/23 04/22/23 04/22/23 Rx aripiprazole 2 mg tablet 2 mg PO .q am #90 tabs 03/11/23 04/22/23 04/22/23 Rx duloxetine 60 mg capsule,delayed 120 mg (2 x 60 mg) PO .q am #180 03/11/23 04/22/23 04/22/23 Rx release caps omeprazole 40 mg capsule,delayed See Rx Instructions .Route 03/19/23 04/22/23 04/23/23 07:30 Rx release .COMPLEX #90 caps pregabalin 75 mg capsule (Lyrica) 75 mg PO BID 30 days #60 caps 04/17/23 04/22/23 04/22/23 Rx melatonin 10 mg tablet 20 mg PO BEDTIME 04/24/23 04/24/23 04/22/23 History Allergies Allergy/AdvReac Type Severity Reaction Status Date / Time morphine AdvReac Mild ADR-Abdominal Verified 04/23/23 09:47 pain PFSH Acute 2 PFSH: Medical History Poor dentition Arthritis of right hip PAD (peripheral artery disease) Obesity, Class II, BMI 35-39.9 TREMAINE (obstructive sleep apnea) GERD (gastroesophageal reflux disease) Facet arthritis, degenerative, lumbar spine Major depressive disorder, recurrent, moderate Left leg DVT Peripheral neuropathy Hypertension Hyperlipidemia Prediabetes Hx of non-ST elevation myocardial infarction (NSTEMI) Chronic migraine Tachycardia Surgical History Previous back surgery L4-L5 H/O rotator cuff surgery Right H/O section x2 Family History Father Dementia Stroke Social History Smoking and tobacco/nicotine status: former use of tobacco/nicotine Second hand smoke exposure: No Alcohol intake: current Alcohol intake frequency: holidays/special occasions only Substance/Drug Use: never Do you think of yourself as: Straight/Heterosexual Current gender identity: Female Physical Exam 2 Urinary Catheter Management: Roper: Cath Placed During This Visit: yes, but has since been removed by the nurse Data 04/25/23 10:24 04/25/23 10:05 A&P Assessment and plan (1) S/P total right hip arthroplasty: Managed by orthopedic. Dressing dry and intact without erythema to outer border. Ambulating with physical therapy. EBL during procedure 600 mL. She is currently postoperative day #2 (2) Hypotension: Blood pressure noted to be 76/52. Previously 90's SBP the past 24 hours. Slightly tachcardic (HR 96). We will obtain CBC and BMP. Will administer 1 L NS bolus x 1 now. Recheck blood pressure after bolus is completed. Continue to hold metoprolol as initiated by orthopedics Continue PT treatment. (3) Acute blood loss as cause of postoperative anemia: Patient's hemoglobin has gone from a baseline of 13.5 preoperative to 9.5 postoperative. Will recheck. Patient denies any gnosticist exemption's to blood products should she have to have these. However, I think it is likely that her hypotension will resolve with fluids. She does not have any significant bruising around her hip surgery site. She has not had any other evidence of ongoing blood loss. Consult Attestations 2 Medical Necessity Statement: As per primary Diagnoses S/P total right hip arthroplasty Z96.641 Hypotension I95.9 Acute blood loss as cause of postoperative anemia D62 Time Spent (min) 44
[2023-04-25 09:40] LABS: Glucose Point of Care 147 mg/dL (70-110)
[2023-04-25] MEDS: sodium chloride 0.9% 1,000 ML 999 ML IV (10:09)
[2023-04-25 10:34] LABS: Basophils # 0.1 10^3/uL (0.0-0.1); Basophils % 0.5 %; Eosinophils # 0.3 10^3/uL (0.0-0.8); Eosinophils % 2.8 %; Hematocrit 25.8 % (36-47); Lymphocytes # 3.3 10^3/uL (0.8-4.8); Mean Corpuscular HGB Conc 31.8 g/dL (30-55); Mean Corpuscular Hemoglobin 29.3 pg (27-33); Mean Corpuscular Volume 92.1 fl (85-98); Mean Platelet Volume 9.5 fL (7.4-10.4); Monocytes # 0.5 10^3/uL (0.2-0.9); Monocytes % 4.8 %; Neutrophils # 6.08 10^3/uL (1.8-7.7); Neutrophils % 59.4 %; Nucleated Red Blood Cells % 0 %; Platelet Count 270 10^3/cmm (157-399); Red Cell Distribution Width 13.4 % (12.1-15.1); White Blood Count 10.24 10^3/uL (3.29-11.43)
[2023-04-25 10:39] LABS: Chloride 104 mmol/L (98-107)
[2023-04-25 11:18] LABS: Anion Gap 12.1 (5-19); Blood Urea Nitrogen 20 mg/dL (8-23); Calcium 8.7 mg/dL (8.5-10.5); Carbon Dioxide 28 mmol/L (22-29); Glucose 127 mg/dL (65-115); Osmolality Calculated 294 mOsm/kg (285-295); Potassium 4.1 mmol/L (3.5-5.1)
[2023-04-25 11:19] LABS: Glomerular Filtration Rate 62.1 mL/min (90-130); Sodium 140 mmol/L (136-145)
--- NOTE | 2023-04-25 12:02 | P.PN_ITS ---
Subjective 2 Subjective: Patient is seen in her room. She notes she is not feeling well secondary to, she feels, her blood pressure issues. Medications: Reviewed: Yes Vitals/I&O/Wt Last Vital Signs Temp 98.3 F 04/25/23 04:00 Pulse 96 04/25/23 04:00 Resp 17 04/25/23 04:00 BP 76/52 04/25/23 08:00 Pulse Ox 94 04/25/23 04:00 O2 Del Method Room Air 04/25/23 04:00 O2 Flow Rate 1 04/23/23 18:18 04/24/23 04/25/23 04/25/23 22:59 06:59 14:59 Intake Total 740 / 1470 1240 / 1240 Balance 740 / 1470 1240 / 1240 Weight last 48 hrs Weight 213 lb 3 oz Weight 208 lb 11.2 oz Physical Exam 2 Const: COMMON NORMALS: no acute distress, average body habitus, patient oriented x3 and alert GENERAL APPEARANCE: cooperative and comfortable O RIENTATION/CONSCIOUSNESS: Yes awake HENMT: COMMON NORMALS: normocephalic and atraumatic HEAD & SCALP: n ormocephalic and atraumatic Eye: GENERAL EYE: appearance normal, both eyes and all related structures Chest: COMMONS NORMALS: normal inspection of the chest Resp: COMMON NORMALS: normal respiratory effort EFFORT & INSPECTION: Yes able to speak in complete sentences and Yes symmetric chest movement Extremity: RIGHT LOWER EXTREMITY: Yes hip joint (Transfer remains dry and intact.) Right hip: Yes neurovascular exam (Intact distally with no evidence of DVT) Neuro: COMMON NORMALS: patient oriented x3 SENSORIUM/ORIENTATION: Yes alert Psych: COMMON NORMALS: mental status grossly normal APPEARANCE: Yes grossly normal ATTITUDE: Yes calm and Yes engaged ATTENTION/CONCENTRATION: Yes attention grossly intact Skin: COMMON NORMALS: no rashes or lesions noted GENERAL SKIN EXAM: no rashes or lesions noted Urinary Catheter Management: Roper: Cath Placed During This Visit: yes, but has since been removed by the nurse Reason for Continuing Indwelling Catheter: Decision to DC Catheter Urinary Catheter Date of Insertion: 04/23/23 Urinary Catheter Time of Insertion: 11:20 Date Urinary Catheter Removed: 04/24/23 Time Urinary Catheter Discontinued: 05:52 Data 04/26/23 03:40 04/26/23 03:40 A&P Assessment and plan (1) Arthritis of right hip: Patient underwent same-day surgery for right total hip arthroplasty. This was well-tolerated. Postoperatively, the patient had difficulties with hypotension. This limited her ability to participate with physical therapy. The hospitalist team was consulted, and the patient received appropriate therapies. She has not been able to work aggressively with physical therapy. She will continue with care in the hospital to give her the best opportunity following total hip arthroplasty. (2) Contracture of adductor muscle of hip: (3) Flexion contracture of right hip: Attestations 2 Medical Necessity Statement*: Ongoing care following total hip arthroplasty for rehab and pain management Coding Level of Care Code Acute Code for [facility] Diagnoses Arthritis of right hip M16.11 Contracture of adductor muscle of hip M62.459 Flexion contracture of right hip M24.551
[2023-04-25] MEDS: amitriptyline 25 mg Tablet 50 MG PO (20:08)
[2023-04-25] MEDS: chlorhexidine gluconate 0.12% Btl 473 mL 30 ML MUCOUS MEM (20:08)
[2023-04-26] VITALS (7 sets, daily range): BP systolic 110–129; BP diastolic 65–74; PULSE 90–116; RESP 17–18; TEMP 36.3–37; O2SAT 92–97; BMI 39.7
[2023-04-26 03:56] LABS: Basophils # 0.1 10^3/uL (0.0-0.1); Basophils % 0.6 %; Eosinophils # 0.5 10^3/uL (0.0-0.8); Eosinophils % 3.9 %; Hematocrit 26.1 % (36-47); Lymphocytes # 2.9 10^3/uL (0.8-4.8); Lymphocytes % 24.7 %; Mean Corpuscular HGB Conc 31.8 g/dL (30-55); Mean Corpuscular Hemoglobin 28.7 pg (27-33); Mean Corpuscular Volume 90.3 fl (85-98); Mean Platelet Volume 9.4 fL (7.4-10.4); Monocytes # 0.5 10^3/uL (0.2-0.9); Monocytes % 4.3 %; Neutrophils # 7.82 10^3/uL (1.8-7.7); Neutrophils % 66.1 %; Nucleated Red Blood Cells % 0 %; Platelet Count 298 10^3/cmm (157-399); Red Blood Count 2.89 10^6/uL (3.85-5.65); Red Cell Distribution Width 13.5 % (12.1-15.1); White Blood Count 11.84 10^3/uL (3.29-11.43)
[2023-04-26 04:18] LABS: Anion Gap 14.1 (5-19); Blood Urea Nitrogen 14 mg/dL (8-23); Calcium 8.7 mg/dL (8.5-10.5); Carbon Dioxide 27 mmol/L (22-29); Chloride 104 mmol/L (98-107); Glomerular Filtration Rate 122.3 mL/min (90-130); Glucose 139 mg/dL (65-115); Osmolality Calculated 295 mOsm/kg (285-295); Potassium 4.1 mmol/L (3.5-5.1); Sodium 141 mmol/L (136-145)
[2023-04-26] MEDS: duloxetine 60 mg Capsule 120 MG PO (06:01)
[2023-04-26] MEDS: ARIPiprazole 2 mg Tablet PO (06:01)
[2023-04-26] MEDS: acetaminophen 500 mg Tablet 1000 MG PO ×2 (06:01→17:27)
[2023-04-26] MEDS: iron polysaccharide complex 150 mg Capsule PO ×2 (08:47→17:28)
[2023-04-26] MEDS: atorvastatin 40 mg Tablet PO (08:47)
[2023-04-26] MEDS: apixaban 5 mg Tablet 2.5 MG PO ×2 (08:47→17:27)
[2023-04-26] MEDS: multivitamin therapeutic Tablet 1 TAB PO (08:48)
[2023-04-26] MEDS: pantoprazole DR 40 mg Tablet PO (08:48)
[2023-04-26] MEDS: metoprolol tartrate 25 mg Tablet 12.5 MG PO (08:48)
[2023-04-26] MEDS: sennosides-docusate Tablet 2 TAB PO ×2 (08:48→17:27)
[2023-04-26] MEDS: meloxicam 7.5 mg tablet 15 MG PO (08:48)
[2023-04-26] MEDS: pregabalin 75 mg Capsule PO ×2 (08:48→17:27)
[2023-04-26] MEDS: cholecalciferol (vitamin D3) 1,000 unit Tablet 1000 UNIT PO (08:49)
[2023-04-26] MEDS: mupirocin oint 22 gm 1 APPLIC NASAL ×2 (08:49→17:28)
[2023-04-26] MEDS: chlorhexidine gluconate 0.12% Btl 473 mL 30 ML MUCOUS MEM ×4 (08:49→21:01)
[2023-04-26] MEDS: calcium carbonate 500 mg Chew Tablet 1000 MG PO ×2 (08:55→17:27)
--- NOTE | 2023-04-26 09:06 | P.PN_ITS ---
Subjective 2 Subjective: Patient reports she feels better this morning. Feels like she can work with physical therapy. Medications: Reviewed: Yes Vitals/I&O/Wt Last Vital Signs Temp 97.8 F 04/26/23 07:59 Pulse 102 H 04/26/23 08:47 Resp 18 04/26/23 07:59 BP 124/68 04/26/23 07:59 Pulse Ox 96 04/26/23 08:47 O2 Del Method Room Air 04/26/23 08:47 O2 Flow Rate 1 04/23/23 18:18 04/25/23 04/26/23 04/26/23 22:59 06:59 14:59 Intake Total 240 / 1720 Balance 240 / 1720 Weight last 48 hrs Weight 98.52 kg Weight 96.7 kg Physical Exam 2 Narrative: General: No distress Neck: Supple Lungs are clear Cardiovascular regular rate and rhythm Abdomen soft Extremities no sinus clubbing edema, dressing intact and dry Urinary Catheter Management: Roper: Cath Placed During This Visit: yes, but has since been removed by the nurse Reason for Continuing Indwelling Catheter: Decision to DC Catheter Urinary Catheter Date of Insertion: 04/23/23 Urinary Catheter Time of Insertion: 11:20 Date Urinary Catheter Removed: 04/24/23 Time Urinary Catheter Discontinued: 05:52 Data 04/26/23 03:40 04/26/23 03:40 A&P Assessment and plan (1) S/P total right hip arthroplasty: Managed by orthopedic. Dressing dry and intact without erythema to outer border. Working with physical therapy, postoperative day #3 (2) Hypotension: Blood pressure improved Likely secondary to significant postoperative acute blood loss anemia. No evidence of active bleeding. She responded to saline, and hemoglobin is stable this morning Reinitiate her metoprolol, 12.5 mg now to make sure she has tolerance, and then consider increasing to home dose tomorrow. (3) Acute blood loss as cause of postoperative anemia: Patient's hemoglobin has gone from a baseline of 13.5 preoperative to 8.3 this morning. No evidence of ongoing blood loss Plan Plan as stated above. Appreciate Consultation. On Eliquis for DVT prophylaxis CODE STATUS: Full code Attestations 2 Medical Necessity Statement*: As per primary Diagnoses S/P total right hip arthroplasty Z96.641 Hypotension I95.9 Acute blood loss as cause of postoperative anemia D62 Time Spent (min) 23
--- NOTE | 2023-04-26 09:10 | PC.SOCIAL ---
IMM Update pg 2 of IMM not updated as patient is currently in observation status.
--- NOTE | 2023-04-26 13:07 | PM.PN ---
Subjective Subjective: Patient is seen in her room. She notes she is not feeling well secondary to, she feels, her blood pressure issues. Medications: Reviewed: Yes Vitals/I&O/Wt Last Vital Signs Temp 97.6 F 04/26/23 12:03 Pulse 90 04/26/23 12:03 Resp 18 04/26/23 12:03 BP 116/72 04/26/23 12:03 Pulse Ox 97 04/26/23 12:03 O2 Del Method Room Air 04/26/23 12:03 O2 Flow Rate 1 04/23/23 18:18 04/25/23 04/26/23 04/26/23 22:59 06:59 14:59 Intake Total 240 / 1720 Balance 240 / 1720 Weight last 48 hrs Weight 217 lb 3.2 oz Weight 213 lb 3 oz Physical Exam Const: COMMON NORMALS: no acute distress, average body habitus, patient oriented x3 and alert GENERAL APPEARANCE: cooperative and comfortable ORIENTATION/CONSCIOUSNESS: Yes awake HENMT: COMMON NORMALS: normocephalic and atraumatic HEAD & SCALP: normocephalic and atraumatic Eye: GENERAL EYE: appearance normal, both eyes and all related structures Chest: COMMONS NORMALS: normal inspection of the chest Resp: COMMON NORMALS: normal respiratory effort EFFORT & INSPECTION: Yes able to speak in complete sentences and Yes symmetric chest movement Extremity: RIGHT LOWER EXTREMITY: Yes hip joint (Dressing remains dry and intact.) Right hip: Yes ROM (Not evaluated) and Yes neurovascular exam (Intact with no evidence of DVT) Neuro: COMMON NORMALS: patient oriented x3 SENSORIUM/ORIENTATION: Yes alert Psych: COMMON NORMALS: mental status grossly normal APPEARANCE: Yes grossly normal ATTITUDE: Yes calm and Yes engaged ATTENTION/CONCENTRATION: Yes attention grossly intact Skin: COMMON NORMALS: no rashes or lesions noted GENERAL SKIN EXAM: no rashes or lesions noted Urinary Catheter Management: Roper: Cath Placed During This Visit: yes, but has since been removed by the nurse Reason for Continuing Indwelling Catheter: Decision to DC Catheter Urinary Catheter Date of Insertion: 04/23/23 Urinary Catheter Time of Insertion: 11:20 Date Urinary Catheter Removed: 04/24/23 Time Urinary Catheter Discontinued: 05:52 Data 04/26/23 03:40 04/26/23 03:40 A&P Assessment and plan (1) Arthritis of right hip: Patient underwent same-day surgery for right total hip arthroplasty. This was well-tolerated. Postoperatively, the patient had difficulties with hypotension. This limited her ability to participate with physical therapy. The hospitalist team was consulted, blood pressure medications were held, however, these have been resumed at a lower level. Patient will continue inpatient status in preparation for need of intermediate at the time of discharge. (2) Contracture of adductor muscle of hip: (3) Flexion contracture of right hip: Attestations Medical Necessity Statement*: Ongoing care involving medical service and physical therapy following total hip arthroplasty with subsequent hypotension Coding Level of Care Code Acute Code for [facility] Diagnoses Arthritis of right hip M16.11 Contracture of adductor muscle of hip M62.459 Flexion contracture of right hip M24.551
[2023-04-26] MEDS: amitriptyline 25 mg Tablet 50 MG PO (21:01)
[2023-04-26] MEDS: metoprolol tartrate 25 mg Tablet PO (21:01)
[2023-04-27] VITALS (8 sets, daily range): BP systolic 104–136; BP diastolic 63–78; PULSE 87–100; RESP 17–18; TEMP 36.5–36.9; O2SAT 91–97; BMI 38.9
[2023-04-27] MEDS: acetaminophen 500 mg Tablet 1000 MG PO ×4 (00:12→22:44)
[2023-04-27 04:51] LABS: Basophils % 0.3 %; Eosinophils # 0.4 10^3/uL (0.0-0.8); Eosinophils % 3.3 %; Lymphocytes # 3.7 10^3/uL (0.8-4.8); Lymphocytes % 31.5 %; Mean Corpuscular HGB Conc 31.5 g/dL (30-55); Mean Corpuscular Hemoglobin 28.4 pg (27-33); Mean Platelet Volume 9.4 fL (7.4-10.4); Monocytes # 0.6 10^3/uL (0.2-0.9); Monocytes % 5.4 %; Neutrophils # 6.83 10^3/uL (1.8-7.7); Neutrophils % 58.7 %; Nucleated Red Blood Cells % 0.2 %; Platelet Count 373 10^3/cmm (157-399); Red Blood Count 2.89 10^6/uL (3.85-5.65); Red Cell Distribution Width 13.6 % (12.1-15.1); White Blood Count 11.63 10^3/uL (3.29-11.43)
[2023-04-27] MEDS: ARIPiprazole 2 mg Tablet PO (05:54)
[2023-04-27] MEDS: duloxetine 60 mg Capsule 120 MG PO (05:54)
[2023-04-27] MEDS: sennosides-docusate Tablet 2 TAB PO ×2 (08:53→17:23)
[2023-04-27] MEDS: multivitamin therapeutic Tablet 1 TAB PO (08:53)
[2023-04-27] MEDS: pantoprazole DR 40 mg Tablet PO (08:53)
[2023-04-27] MEDS: calcium carbonate 500 mg Chew Tablet 1000 MG PO ×2 (08:53→17:23)
[2023-04-27] MEDS: pregabalin 75 mg Capsule PO ×2 (08:53→17:31)
[2023-04-27] MEDS: apixaban 5 mg Tablet 2.5 MG PO ×2 (08:53→17:22)
[2023-04-27] MEDS: iron polysaccharide complex 150 mg Capsule PO ×2 (08:53→17:22)
[2023-04-27] MEDS: cholecalciferol (vitamin D3) 1,000 unit Tablet 1000 UNIT PO (08:54)
[2023-04-27] MEDS: atorvastatin 40 mg Tablet PO (08:54)
[2023-04-27] MEDS: meloxicam 7.5 mg tablet 15 MG PO (08:56)
[2023-04-27] MEDS: mupirocin oint 22 gm 1 APPLIC NASAL ×2 (08:56→17:24)
[2023-04-27] MEDS: chlorhexidine gluconate 0.12% Btl 473 mL 30 ML MUCOUS MEM ×4 (08:56→21:28)
[2023-04-27] MEDS: metoprolol tartrate 25 mg Tablet PO ×2 (08:58→21:28)
--- NOTE | 2023-04-27 16:52 | P.PN_ITS ---
Subjective 2 Subjective: no new complaints, working with PT Medications: Reviewed: Yes Vitals/I&O/Wt Last Vital Signs Temp 98 F 04/27/23 16:05 Pulse 87 04/27/23 16:05 Resp 17 04/27/23 16:05 BP 114/71 04/27/23 16:05 Pulse Ox 91 04/27/23 16:05 O2 Del Method Room Air 04/27/23 16:05 O2 Flow Rate 1 04/23/23 18:18 04/27/23 04/27/23 04/27/23 06:59 14:59 22:59 Intake Total 1160 / 1160 Balance 1160 / 1160 Weight last 48 hrs Weight 96.706 kg Weight 98.52 kg Physical Exam 2 Narrative: General: No acute distress, AO x3 HEENT: PERRLA, pupils bilaterally equal and reactive, pallors not present Chest: Normal vesicular breath sounds, no added sounds, equal good air entry bilaterally CVS: S1-S2 regular, no murmurs, no tachycardia, no gallops, no rubs Abdomen: Soft, nontender, no organomegaly, bowel sounds present Neuro: No focal deficits, no facial deformity, AO x3, power 5/5 in all limbs Urinary Catheter Management: Roper: Cath Placed During This Visit: yes, but has since been removed by the nurse Reason for Continuing Indwelling Catheter: Decision to DC Catheter Urinary Catheter Date of Insertion: 04/23/23 Urinary Catheter Time of Insertion: 11:20 Date Urinary Catheter Removed: 04/24/23 Time Urinary Catheter Discontinued: 05:52 Data 04/27/23 04:39 04/26/23 03:40 A&P Assessment and plan (1) S/P total right hip arthroplasty: Managed by orthopedic. Dressing dry and intact without erythema to outer border. Working with physical therapy, postoperative day #4 (2) Hypotension: Blood pressure improved Likely secondary to significant postoperative acute blood loss anemia. No evidence of active bleeding. She responded to saline, and hemoglobin is stable this morning at 8.2 Continue metoprolol 25mg BID (3) Acute blood loss as cause of postoperative anemia: Patient's hemoglobin has gone from a baseline of 13.5 preoperative to 8.3 this morning. No evidence of ongoing blood loss Plan Plan as stated above. Appreciate Consultation. On Eliquis for DVT prophylaxis CODE STATUS: Full code Attestations 2 Medical Necessity Statement*: per primary team Coding Level of Care Code Acute Code for [facility] Diagnoses S/P total right hip arthroplasty Z96.641 Hypotension I95.9 Acute blood loss as cause of postoperative anemia D62
--- NOTE | 2023-04-27 17:21 | P.PN_ITS ---
Subjective 2 Subjective: Patient is seen in her room. She is concerned regarding safety at home should she not go to half-way postoperatively. Medications: Reviewed: Yes Vitals/I&O/Wt Last Vital Signs Temp 98.4 F 04/28/23 15:37 Pulse 87 04/28/23 15:37 Resp 17 04/28/23 15:37 BP 101/53 04/28/23 15:37 Pulse Ox 95 04/28/23 15:37 O2 Del Method Room Air 04/28/23 15:37 O2 Flow Rate 1 04/23/23 18:18 04/28/23 04/28/23 04/28/23 06:59 14:59 22:59 Intake Total 480 / 480 Balance 480 / 480 Weight last 48 hrs Weight 214 lb 5 oz Weight 213 lb 3.2 oz Physical Exam 2 Const: COMMON NORMALS: no acute distress, average body habitus, patient oriented x3 and alert GENERAL APPEARANCE: cooperative and comfortable O RIENTATION/CONSCIOUSNESS: Yes awake HENMT: COMMON NORMALS: normocephalic and atraumatic HEAD & SCALP: n ormocephalic and atraumatic Eye: GENERAL EYE: appearance normal, both eyes and all related structures Chest: COMMONS NORMALS: normal inspection of the chest Resp: COMMON NORMALS: normal respiratory effort EFFORT & INSPECTION: Yes able to speak in complete sentences and Yes symmetric chest movement Extremity: RIGHT LOWER EXTREMITY: Yes hip joint (Dressing dry and intact) Right hip: Yes inspection (No significant ecchymosis), Yes ROM (Not evaluated) and Yes neurovascular exam (Intact distally) Neuro: COMMON NORMALS: patient oriented x3 SENSORIUM/ORIENTATION: Yes alert Psych: COMMON NORMALS: mental status grossly normal APPEARANCE: Yes grossly normal ATTITUDE: Yes calm and Yes engaged ATTENTION/CONCENTRATION: Yes attention grossly intact Skin: COMMON NORMALS: no rashes or lesions noted GENERAL SKIN EXAM: no rashes or lesions noted Urinary Catheter Management: Roper: Cath Placed During This Visit: yes, but has since been removed by the nurse Reason for Continuing Indwelling Catheter: Decision to DC Catheter Urinary Catheter Date of Insertion: 04/23/23 Urinary Catheter Time of Insertion: 11:20 Date Urinary Catheter Removed: 04/24/23 Time Urinary Catheter Discontinued: 05:52 Data 04/27/23 04:39 04/26/23 03:40 A&P Assessment and plan (1) Arthritis of right hip: Patient underwent same-day surgery for right total hip arthroplasty. This was well-tolerated. Postoperatively, the patient had difficulties with hypotension. This limited her ability to participate with physical therapy. The hospitalist team was consulted, and the patient received appropriate therapies. She has not been able to work aggressively with physical therapy. She will continue with care in the hospital to give her the best opportunity following total hip arthroplasty. She continues to work with physical therapy at this point, but she has significant deconditioning from having been unable to ambulate secondary to severe hip arthritis prior to the surgical procedure. (2) Contracture of adductor muscle of hip: (3) Flexion contracture of right hip: Attestations 2 Medical Necessity Statement*: Care following total hip arthroplasty Coding Level of Care Code Acute Code for [facility] Diagnoses Arthritis of right hip M16.11 Contracture of adductor muscle of hip M62.459 Flexion contracture of right hip M24.551
[2023-04-27] MEDS: amitriptyline 25 mg Tablet 50 MG PO (21:28)
[2023-04-28] VITALS (9 sets, daily range): BP systolic 97–116; BP diastolic 53–69; PULSE 84–98; RESP 15–18; TEMP 36.8–36.9; O2SAT 92–95
[2023-04-28] MEDS: oxyCODONE 5 mg IR Tab/Cap PO ×2 (04:26→13:28)
[2023-04-28] MEDS: ARIPiprazole 2 mg Tablet PO (05:31)
[2023-04-28] MEDS: duloxetine 60 mg Capsule 120 MG PO (05:31)
[2023-04-28] MEDS: acetaminophen 500 mg Tablet 1000 MG PO ×2 (06:08→14:46)
[2023-04-28] MEDS: metoprolol succinate ER (24 HR) 50 mg Tablet PO (09:24)
[2023-04-28] MEDS: pregabalin 75 mg Capsule PO ×2 (09:24→17:36)
[2023-04-28] MEDS: meloxicam 7.5 mg tablet 15 MG PO (09:24)
[2023-04-28] MEDS: iron polysaccharide complex 150 mg Capsule PO ×2 (09:24→17:35)
[2023-04-28] MEDS: sennosides-docusate Tablet 2 TAB PO ×2 (09:24→17:36)
[2023-04-28] MEDS: cholecalciferol (vitamin D3) 1,000 unit Tablet 1000 UNIT PO (09:24)
[2023-04-28] MEDS: apixaban 5 mg Tablet 2.5 MG PO ×2 (09:24→17:36)
[2023-04-28] MEDS: pantoprazole DR 40 mg Tablet PO (09:24)
[2023-04-28] MEDS: chlorhexidine gluconate 0.12% Btl 473 mL 30 ML MUCOUS MEM ×4 (09:25→21:05)
[2023-04-28] MEDS: calcium carbonate 500 mg Chew Tablet 1000 MG PO ×2 (09:25→17:35)
[2023-04-28] MEDS: atorvastatin 40 mg Tablet PO (09:25)
[2023-04-28] MEDS: mupirocin oint 22 gm 1 APPLIC NASAL (09:25)
[2023-04-28] MEDS: multivitamin therapeutic Tablet 1 TAB PO (09:25)
[2023-04-28] MEDS: metoprolol tartrate 25 mg Tablet PO ×2 (09:29→21:04)
--- NOTE | 2023-04-28 17:22 | P.PN_ITS ---
Subjective 2 Subjective: Patient continues to work with physical therapy. This is limited secondary to her severe deconditioning. At this point, she is unable to get herself in and out of even the hospital bed. Medications: Reviewed: Yes Vitals/I&O/Wt Last Vital Signs Temp 98.4 F 04/28/23 15:37 Pulse 87 04/28/23 15:37 Resp 17 04/28/23 15:37 BP 101/53 04/28/23 15:37 Pulse Ox 95 04/28/23 15:37 O2 Del Method Room Air 04/28/23 15:37 O2 Flow Rate 1 04/23/23 18:18 04/28/23 04/28/23 04/28/23 06:59 14:59 22:59 Intake Total 480 / 480 Balance 480 / 480 Weight last 48 hrs Weight 214 lb 5 oz Weight 213 lb 3.2 oz Physical Exam 2 Const: COMMON NORMALS: no acute distress, average body habitus, patient oriented x3 and alert GENERAL APPEARANCE: cooperative and comfortable O RIENTATION/CONSCIOUSNESS: Yes awake HENMT: COMMON NORMALS: normocephalic and atraumatic HEAD & SCALP: n ormocephalic and atraumatic Eye: GENERAL EYE: appearance normal, both eyes and all related structures Chest: COMMONS NORMALS: normal inspection of the chest Resp: COMMON NORMALS: normal respiratory effort EFFORT & INSPECTION: Yes able to speak in complete sentences and Yes symmetric chest movement Extremity: RIGHT LOWER EXTREMITY: Yes hip joint (Dressing dry and intact) Right hip: Yes inspection (Swelling about the hip.), Yes ROM (Not evaluated.) and Yes neurovascular exam (Intact distally with no evidence of DVT) Neuro: COMMON NORMALS: patient oriented x3 SENSORIUM/ORIENTATION: Yes alert Psych: COMMON NORMALS: mental status grossly normal APPEARANCE: Yes grossly normal ATTITUDE: Yes calm and Yes engaged ATTENTION/CONCENTRATION: Yes attention grossly intact Skin: COMMON NORMALS: no rashes or lesions noted GENERAL SKIN EXAM: no rashes or lesions noted Urinary Catheter Management: Roper: Cath Placed During This Visit: yes, but has since been removed by the nurse Reason for Continuing Indwelling Catheter: Decision to DC Catheter Urinary Catheter Date of Insertion: 04/23/23 Urinary Catheter Time of Insertion: 11:20 Date Urinary Catheter Removed: 04/24/23 Time Urinary Catheter Discontinued: 05:52 Data 04/27/23 04:39 04/26/23 03:40 A&P Assessment and plan (1) Arthritis of right hip: Patient underwent same-day surgery for right total hip arthroplasty. This was well-tolerated. Postoperatively, the patient had difficulties with hypotension. This limited her ability to participate with physical therapy. The hospitalist team was consulted, and the patient received appropriate therapies. The patient continues to attempt to work with physical therapy. She is unable to get herself in and out of bed at this point secondary to weakness and deconditioning. She has difficulty getting up and down from a chair again secondary to weakness. She has significant concerns regarding safety at home. (2) Contracture of adductor muscle of hip: (3) Flexion contracture of right hip: Attestations 2 Medical Necessity Statement*: Ongoing care following total hip arthroplasty for physical therapy. Coding Level of Care Code Acute Code for [facility] Diagnoses Arthritis of right hip M16.11 Contracture of adductor muscle of hip M62.459 Flexion contracture of right hip M24.551
[2023-04-28] MEDS: amitriptyline 25 mg Tablet 50 MG PO (21:04)
[2023-04-29] VITALS: BP 113/67; PULSE 93; RESP 16; TEMP 36.8; O2SAT 95
[2023-04-29 04:59] VITALS: BP 130/76; PULSE 96; RESP 18; TEMP 36.8; O2SAT 95
[2023-04-29] MEDS: ARIPiprazole 2 mg Tablet PO (05:57)
[2023-04-29] MEDS: acetaminophen 500 mg Tablet 1000 MG PO (05:57)
[2023-04-29] MEDS: duloxetine 60 mg Capsule 120 MG PO (05:57)
[2023-04-29 08:45] VITALS: BP 114/68; PULSE 94; RESP 18; TEMP 36.4; O2SAT 92
[2023-04-29] MEDS: iron polysaccharide complex 150 mg Capsule PO (09:27)
[2023-04-29] MEDS: metoprolol succinate ER (24 HR) 50 mg Tablet PO (09:28)
[2023-04-29] MEDS: multivitamin therapeutic Tablet 1 TAB PO (09:28)
[2023-04-29] MEDS: cholecalciferol (vitamin D3) 1,000 unit Tablet 1000 UNIT PO (09:28)
[2023-04-29] MEDS: apixaban 5 mg Tablet 2.5 MG PO (09:28)
[2023-04-29] MEDS: sennosides-docusate Tablet 2 TAB PO (09:28)
[2023-04-29] MEDS: calcium carbonate 500 mg Chew Tablet 1000 MG PO (09:28)
[2023-04-29] MEDS: pregabalin 75 mg Capsule PO (09:29)
[2023-04-29] MEDS: meloxicam 7.5 mg tablet 15 MG PO (09:29)
[2023-04-29] MEDS: atorvastatin 40 mg Tablet PO (09:29)
[2023-04-29] MEDS: metoprolol tartrate 25 mg Tablet PO (09:29)
[2023-04-29] MEDS: chlorhexidine gluconate 0.12% Btl 473 mL 30 ML MUCOUS MEM ×2 (09:29→13:06)
[2023-04-29] MEDS: pantoprazole DR 40 mg Tablet PO (09:29)
[2023-04-29 09:43] LABS: Basophils # 0.1 10^3/uL (0.0-0.1); Basophils % 0.7 %; Eosinophils # 0.4 10^3/uL (0.0-0.8); Eosinophils % 3.6 %; Hematocrit 26.3 % (36-47); Lymphocytes # 2.8 10^3/uL (0.8-4.8); Lymphocytes % 28.5 %; Mean Corpuscular HGB Conc 31.9 g/dL (30-55); Mean Corpuscular Hemoglobin 28.7 pg (27-33); Mean Corpuscular Volume 89.8 fl (85-98); Mean Platelet Volume 8.9 fL (7.4-10.4); Monocytes # 0.5 10^3/uL (0.2-0.9); Monocytes % 5.1 %; Neutrophils # 5.79 10^3/uL (1.8-7.7); Neutrophils % 59.9 %; Nucleated Red Blood Cells % 0 %; Platelet Count 444 10^3/cmm (157-399); Red Blood Count 2.93 10^6/uL (3.85-5.65); Red Cell Distribution Width 13.6 % (12.1-15.1); White Blood Count 9.66 10^3/uL (3.29-11.43)
[2023-04-29 12:20] LABS: SARS Covid-2 Antigen negative (Negative)
[2023-04-29 12:55] VITALS: BP 91/59; PULSE 88; RESP 16; TEMP 36.5; O2SAT 96
--- NOTE | 2023-04-29 13:12 | P.PN_ITS ---
Subjective 2 Subjective: seen today hb stable Vitals/I&O/Wt Last Vital Signs Temp 97.7 F 04/29/23 12:55 Pulse 88 04/29/23 12:55 Resp 16 04/29/23 12:55 BP 91/59 04/29/23 12:55 Pulse Ox 96 04/29/23 12:55 O2 Del Method Room Air 04/29/23 12:55 O2 Flow Rate 1 04/23/23 18:18 04/28/23 04/29/23 04/29/23 22:59 06:59 14:59 Intake Total 240 / 720 480 / 1200 960 / 960 Balance 240 / 720 480 / 1200 960 / 960 Weight last 48 hrs Weight 98.886 kg Weight 97.211 kg Physical Exam 2 Narrative: lungs cta abd soft Urinary Catheter Management: Roper: Cath Placed During This Visit: yes, but has since been removed by the nurse Reason for Continuing Indwelling Catheter: Decision to DC Catheter Urinary Catheter Date of Insertion: 04/23/23 Urinary Catheter Time of Insertion: 11:20 Date Urinary Catheter Removed: 04/24/23 Time Urinary Catheter Discontinued: 05:52 Data 04/29/23 09:33 04/26/23 03:40 A&P Assessment and plan (1) S/P total right hip arthroplasty: Managed by orthopedic. Dressing dry and intact without erythema to outer border. Working with physical therapy, postoperative day #4 (2) Hypotension: Blood pressure improved Likely secondary to significant postoperative acute blood loss anemia. No evidence of active bleeding. She responded to saline, and hemoglobin is stable this morning at 8.4 Continue metoprolol 25mg BID (3) Acute blood loss as cause of postoperative anemia: Patient's hemoglobin has gone from a baseline of 13.5 preoperative to 8.3 this morning. No evidence of ongoing blood loss Plan Plan as stated above. Appreciate Consultation. On Eliquis for DVT prophylaxis CODE STATUS: Full code Attestations 2 Medical Necessity Statement*: defer to primary team Coding Level of Care Code 97676 Diagnoses S/P total right hip arthroplasty Z96.641 Hypotension I95.9 Acute blood loss as cause of postoperative anemia D62
--- NOTE | 2023-04-29 13:35 | PM.DCS ---
Discharge Providers Date of Admission: 04/23/23 17:30 Date of Discharge: April 29, 2023 Attending Provider at Admission: Ella Schultz MD Attending Provider at Discharge: Ella Schultz MD Consults: Hospitalist team Primary Care Provider: Gino Recio MD Diagnoses at Discharge Discharge Diagnosis (1) S/P total right hip arthroplasty: Status: Acute Permanent problem details: Date of procedure: April 23, 2023 Diagnosis: Severe degenerative osteoarthritis right hip with contracture Post-op findings: Severe degenerative osteoarthritis, large osteophytes, a large cyst in the posterior medial acetabulum. In addition to flexion contracture of the hip, there was an adduction contracture as well. Procedure done: Right total hip arthroplasty with bone grafting of the large cyst utilizing DBM plus putty with cancellous chips. Adductor tenotomy Implants: The [place] total hip system with a size 52 mm by E alpha code Trident II Tritanium acetabular shell with an MDM liner size 42 mm inner diameter by E alpha code. A size 5 Accolade II 127? neck angle hip stem with a size 28 mm x -4 mm femoral head and a episcopalian MDM X3 insert size 28 mm x 42E (2) Hypotension: Status: Acute (3) Acute blood loss as cause of postoperative anemia: Status: Acute Reason for Visit Reason for Visit: M16.11 Brief History: This 67-year-old woman presented to the hospital today for same-day surgery involving right total hip arthroplasty. The patient had longstanding symptoms related to her right hip. Additionally, she has a history of 2 lumbar fusions and multiple injections into the lumbar spine. Right hip pain has been present for nearly 3 years at this point. She denied any injury or trauma. Primary complaints included pain, stiffness, and limited range of motion. The patient was unable to stand or walk long distances. In fact, when she was seen in the office, she would frequently use a wheelchair. She used a cane at home. Risks and complications of surgery were discussed with the patient. Consents were signed preoperatively. Questions were answered at that time. Hospital Course Hospital Course This 67-year-old woman was admitted to the hospital following total hip arthroplasty. She had difficulty with hypotension and inability to participate with physical therapy. The hospitalist team was consulted, and they made medication adjustments as appropriate to improve the patient's blood pressure. Patient had significant concern about being able to ambulate independently. She was not felt safe from the standpoint of the physical therapist for discharge to home. At the time of discharge, the patient's blood pressure was well-controlled. She was discharged to residential. Physical Exam Const: COMMON NORMALS: no acute distress, average body habitus, patient oriented x3 and alert GENERAL APPEARANCE: cooperative and comfortable ORIENTATION/CONSCIOUSNESS: Yes awake HENMT: COMMON NORMALS: normocephalic and atraumatic HEAD & SCALP: normocephalic and atraumatic Eye: GENERAL EYE: appearance normal, both eyes and all related structures Chest: COMMONS NORMALS: normal inspection of the chest Resp: COMMON NORMALS: normal respiratory effort EFFORT & INSPECTION: Yes able to speak in complete sentences and Yes symmetric chest movement Extremity: RIGHT LOWER EXTREMITY: Yes hip joint (Dressing is dry and intact.) Right hip: Yes neurovascular exam (Intact distally with no evidence of DVT) Neuro: COMMON NORMALS: patient oriented x3 SENSORIUM/ORIENTATION: Yes alert Psych: COMMON NORMALS: mental status grossly normal APPEARANCE: Yes grossly normal ATTITUDE: Yes calm and Yes engaged ATTENTION/CONCENTRATION: Yes attention grossly intact Skin: COMMON NORMALS: no rashes or lesions noted GENERAL SKIN EXAM: no rashes or lesions noted Urinary Catheter Management: Roper: Cath Placed During This Visit: yes, but has since been removed by the nurse Reason for Continuing Indwelling Catheter: Decision to DC Catheter Urinary Catheter Date of Insertion: 04/23/23 Urinary Catheter Time of Insertion: 11:20 Date Urinary Catheter Removed: 04/24/23 Time Urinary Catheter Discontinued: 05:52 Discharge Data Studies Completed and Pending Completed Studies During Hospitalization Category Date Time Status XR pelvis 1-2V* 60143 Routine Exams 04/23/23 15:00 Completed Laboratory Results WBC 9.66 10^3/uL (3.29-11.43) 04/29/23 09:33 RBC 2.93 10^6/uL (3.85-5.65) L 04/29/23 09:33 Hgb 8.40 g/dL (11.27-16.99) L 04/29/23 09:33 Hct 26.3 % (36-47) L 04/29/23 09:33 MCV 89.8 fl (85-98) 04/29/23 09:33 MCH 28.7 pg (27-33) 04/29/23 09:33 MCHC 31.9 g/dL (30-55) 04/29/23 09:33 RDW 13.6 % (12.1-15.1) 04/29/23 09:33 Plt Count 444 10^3/cmm (157-399) H 04/29/23 09:33 MPV 8.9 fL (7.4-10.4) 04/29/23 09:33 Neut % (Auto) 59.9 % 04/29/23 09:33 Lymph % (Auto) 28.5 % 04/29/23 09:33 Elk % (Auto) 5.1 % 04/29/23 09:33 Eos % (Auto) 3.6 % 04/29/23 09:33 Baso % (Auto) 0.7 % 04/29/23 09:33 Neut # (Auto) 5.79 10^3/uL (1.8-7.7) 04/29/23 09:33 Lymph # (Auto) 2.8 10^3/uL (0.8-4.8) 04/29/23 09:33 Elk # (Auto) 0.5 10^3/uL (0.2-0.9) 04/29/23 09:33 Eos # (Auto) 0.4 10^3/uL (0.0-0.8) 04/29/23 09:33 Baso # (Auto) 0.1 10^3/uL (0.0-0.1) 04/29/23 09:33 Nucleated RBC % (auto) 0 % 04/29/23 09: Nucleated RBCs # 0.0 /100WBC 04/29/23 09:33 Sodium 141 mmol/L (136-145) 04/26/23 03:40 Potassium 4.1 mmol/L (3.5-5.1) 04/26/23 03:40 Chloride 104 mmol/L (98-107) 04/26/23 03:40 Carbon Dioxide 27 mmol/L (22-29) 04/26/23 03:40 Anion Gap 14.1 (5-19) 04/26/23 03:40 BUN 14 mg/dL (8-23) 04/26/23 03:40 Creatinine 0.5 mg/dL (0.5-0.9) 04/26/23 03:40 GFR Calculation 122.3 mL/min (90-130) 04/26/23 03:40 Glucose 139 mg/dL (65-115) H 04/26/23 03:40 POC Glucose 147 mg/dL (70-110) H 04/25/23 09:11 Calculated Osmolality 295 mOsm/kg (285-295) 04/26/23 03:40 Calcium 8.7 mg/dL (8.5-10.5) 04/26/23 03:40 SARS-CoV-2 Ag (Rapid) negative (Negative) 04/29/23 11:58 Vitals Last Vital Signs Temp 97.7 F 04/29/23 12:55 Pulse 88 04/29/23 12:55 Resp 16 04/29/23 12:55 BP 91/59 04/29/23 12:55 Pulse Ox 96 04/29/23 12:55 O2 Del Method Room Air 04/29/23 12:55 O2 Flow Rate 1 04/23/23 18:18 Discharge Plan Discharge Patient Disposition: Xfer SNF Condition: Stable Prescriptions: New acetaminophen 500 mg Tablet 1,000 mg PO Q8H 15 Days Qty: 90 0RF Eliquis 5 mg Tablet 2.5 mg PO BID 60 Days Qty: 60 0RF metoprolol tartrate 25 mg Tablet 25 mg PO BID@0900,2100 30 Days Qty: 60 0RF oxycodone 5 mg Tablet 5 mg PO Q8H PRN (Reason: Moderate Pain) 10 Days Qty: 30 0RF Continued calcium carbonate 600 mg calcium (1,500 mg) tablet 600 mg PO BID multivitamin Capsule 1 cap PO DAILY amitriptyline 50 mg tablet 50 mg PO .q hs Qty: 90 0RF Rx Instructions: Take one tablet at bedtime aripiprazole 2 mg tablet 2 mg PO .q am Qty: 90 0RF Rx Instructions: Take one tablet by mouth every morning duloxetine 60 mg capsule,delayed release(DR/EC) 120 mg PO .q am Qty: 180 0RF Rx Instructions: Take 2 capsules daily (total of 120 mg) (DME) incontinence underwear See Rx Instructions .Route .MEDSUPPLY Qty: 90 2RF Rx Instructions: As directed atorvastatin 40 mg tablet 40 mg PO DAILY Qty: 90 2RF Rx Instructions: po q hs omeprazole 40 mg capsule,delayed release(DR/EC) See Rx Instructions .ROUTE .COMPLEX Qty: 90 0RF Dose Instruction: Take 1 capsule by mouth once daily Rx Instructions: Take 1 capsule by mouth once daily pregabalin [Lyrica] 75 mg capsule 75 mg PO BID 30 Days Qty: 60 2RF melatonin 10 mg Tablet 20 mg PO BEDTIME Held metoprolol succinate 50 mg tablet extended release 24 hr 50 mg PO DAILY 90 Days Qty: 90 0RF Hold Instructions: Resume on 05/27/23. Resume per primary care recommendations. Your dose was adjusted while in hospital. Discharge Orders: Discharge Order (Routine); Ordered 04/29/23 Ordered By: Ella Schultz Referrals: [facility] [Outside] Ella Schultz MD [Physician] - 05/08/23 11:15 am Discharge Diet: Advance as tolerated and Usual diet Discharge Activity: Increase activity as tolerated, Limit activity as instructed, Use walker/crutches as instructed and As per PT/OT instructions Activity Restrictions/Additional Instructions: Posterior precautions. Maintain dressing until it comes off on its own or you are seen in clinic. You may ambulate weightbearing as tolerated. Physical therapy for range of motion, gait training, and strengthening. Discharge Attestations Time Spent in Discharge Care*: greater than 30 min Specific Discharge Activities: educating patient, documenting/other paperwork and evaluating patient/reviewing data Quality Metrics Clinical Quality Measures [ No reported AMI, CVA or VTE this stay] Coding Level of Care Code Acute Code for [facility] Diagnoses S/P total right hip arthroplasty Z96.641 Hypotension I95.9 Acute blood loss as cause of postoperative anemia D62
[2023-04-29 14:27] VITALS: PULSE 81; O2SAT 95
[2023-04-29 15:01] VITALS: PULSE 81; O2SAT 95
== END 2023-04-29 14:51 | disposition skilled nursing facility (03) ==
LOC: MEDSURG 17:36
PROVIDERS: Internal Medicine; Admitting Provider Specialist; PCP Family Medicine; Visit Provider Specialist
PROC: (CPT 27130; principal; 2023-04-23 10:40)
DX: M16.11 Unilateral primary osteoarthritis, right hip (principal); M24.551 Contracture, right hip; M25.751 Osteophyte, right hip; D62 Acute posthemorrhagic anemia; I95.9 Hypotension, unspecified; G47.33 Obstructive sleep apnea (adult) (pediatric); I10 Essential (primary) hypertension; I25.2 Old myocardial infarction; E78.5 Hyperlipidemia, unspecified; Z87.891 Personal history of nicotine dependence
CPT/HCPCS: 27130; 36415; 36416; 51702; 51798; 72170; 80048; 82962; 85014; 85018; 85025; 87426; 93005; 97110; 97116; 97162; 97165; 97530; 97535; C1713; C1776; G0378; J0131; J0690; J1100; J1170; J2405; J2704; J2710; J3010; J3370; J3490; J7030; J7040; P9045

== ENCOUNTER → 2023-05-08 10:59 | Outpatient (BNVA) | payer MEDICARE, SELFPAY | PROVIDERS: PCP Family Medicine; Visit Provider Nurse Practitioner | DX: Z96.641 Presence of right artificial hip joint (principal); M24.551 Contracture, right hip; M16.11 Unilateral primary osteoarthritis, right hip | CPT/HCPCS: 73502; 99024 ==

== ENCOUNTER 2023-05-10 12:36 | Inpatient (IN) | payer MEDICARE, MEDICAID, SELFPAY ==
[2023-05-10] VITALS (13 sets, daily range): BP systolic 92–157; BP diastolic 53–97; PULSE 105–126; RESP 17–29; TEMP 37.9; O2SAT 91–97; BMI 36.8
--- NOTE | 2023-05-10 12:41 | XR_ITS ---
WS: [id number] PORTABLE CHEST HISTORY: dyspnea/cough COMPARISON: 01/12/2021 Lungs are clear and well expanded. No pleural effusion or pneumothorax. Cardiac size: Normal. Mediastinum/Aorta: Normal mediastinum. No osseous abnormality seen. IMPRESSION: Unremarkable portable chest.
--- NOTE | 2023-05-10 12:53 | ED_ITS ---
HPI - Chest Pain 2 General: Chief Complaint: Chest Pain Stated Complaint: chest pain with fever Time Seen by Provider: 05/10/23 12:38 Source: patient Mode of arrival: ambulatory History of Present Illness: 67-year-old female presents emergency ro om complaining of chest pain and fever. Generally feeling very weak. She denied having any chest pain at this time. Nauseous without vomiting. No productive cough no diarrhea. MD complaint: chest pain Onset (ago): minute(s) Associated symptoms: Deny abdominal pain, dyspnea or fever(s) Review of Systems 2 Const: Denies: fever(s) or chills Card: Denies: chest pain Resp: Denies: dyspnea GI: Denies: abdominal pain : Denies: dysuria, urinary frequency or urinary urgency Musc: Denies: neck pain or back pain Skin/Breast: Denies: rash PFSH ED 2 PFSH: Medical History Poor dentition Arthritis of right hip PAD (peripheral artery disease) Obesity, Class II, BMI 35-39.9 TREMAINE (obstructive sleep apnea) GERD (gastroesophageal reflux disease) Facet arthritis, degenerative, lumbar spine Major depressive disorder, recurrent, moderate Left leg DVT Peripheral neuropathy Hypertension Hyperlipidemia Prediabetes Hx of non-ST elevation myocardial infarction (NSTEMI) Chronic migraine Tachycardia Surgical History Previous back surgery L4-L5 H/O rotator cuff surgery Right H/O section x2 Family History Father Dementia Stroke Social History Smoking and tobacco/nicotine status: former use of tobacco/nicotine Second hand smoke exposure: No Alcohol intake: current Alcohol intake frequency: holidays/special occasions only Substance/Drug Use: never Do you think of yourself as: Straight/Heterosexual Current gender identity: Female Female Reproductive History: Spontaneous abortions: No Physical Exam 2 Const: GENERAL APPEARANCE: cooperative and comfortable O RIENTATION/CONSCIOUSNESS: Yes awake, Yes oriented to person, Yes oriented to place and Yes oriented to time HENMT: COMMON NORMALS: normocephalic, atraumatic and hearing grossly normal bilaterally HEAD & SCALP: normocephalic and atraumatic Resp: COMMON NORMALS: normal respiratory effort, No retractions, No use of accessory muscles and clear to auscultation bilaterally AUSCULTATION: clear to auscultation bilaterally Cardio: COMMON NORMALS: regular rate, regular rhythm and No murmurs present (Cardio) RATE: regular rate RHYTHM: regular rhythm GI: COMMON NORMALS: Soft to palpation and No hepatosplenomegaly present A USCULTATION: Yes normoactive bowel sounds PALPATION: Yes Soft to palpation, No Tenderness to palpation present (GI), No Guarding due to palpation present (GI) and Yes No hepatosplenomegaly present : BLADDER/KIDNEY EXAM: Yes CVA tenderness Back/Pelvis: GENERAL BACK: Yes CVA tenderness Extremity: COMMON NORMALS: normal to inspection, capillary refill normal, no clubbing, cyanosis or edema, no calf tenderness and no pedal edema Neuro: SENSORIUM/ORIENTATION: Yes oriented to person, Yes oriented to place and Yes oriented to time Skin: COMMON NORMALS: no rashes or lesions noted GENERAL SKIN EXAM: no rashes or lesions noted Course 2 Vital Signs: Vital signs: Vital Signs Temperature 98.3 F 05/15/23 15:09 Pulse Rate 85 05/15/23 15:09 Respiratory Rate 16 05/15/23 15:09 Blood Pressure 110/55 05/15/23 15:09 Pulse Oximetry 94 05/15/23 15:09 Oxygen Delivery Me thod Room Air 05/15/23 12:00 Oxygen Flow Rate 1 05/14/23 16:00 MDM - Chest Pain Medical Decision Making Admitted for pyelonephritis labs reviewed. Blood cultures done lactic acid is normal. UA results show cystitis CT shows possible pyelonephritis will admit with IV antibiotic discussed with hospitalist orders written Medical Records I reviewed the patient's medical records. Lab Data I reviewed the patient's lab results. 05/14/23 04:16 05/14/23 04:16 Radiology Impressions Abdomen/Pelvis CT 05/10/23 15:21 IMPRESSION: Findings consistent with left-sided pyelonephritis Chest CTA 05/10/23 19:14 IMPRESSION: No acute findings. Chest X-Ray 05/12/23 18:11 IMPRESSION: 1. Interval development of patchy atelectasis in the left lower lobe. 2. Incidental/nonacute findings are listed in the report. Laboratory Results WBC 17.75 10^3/uL (3.29-11.43) H 05/10/23 12:52 RBC 3.22 10^6/uL (3.85-5.65) L 05/10/23 12:52 Hgb 8.90 g/dL (11.27-16.99) L 05/10/23 12:52 Hct 28.4 % (36-47) L 05/10/23 12:52 MCV 88.2 fl (85-98) 05/10/23 12:52 MCH 27.6 pg (27-33) 05/10/23 12:52 MCHC 31.3 g/dL (30-55) 05/10/23 12:52 RDW 13.7 % (12.1-15.1) 05/10/23 12:52 Plt Count 591 10^3/cmm (157-399) H 05/10/23 12:52 MPV 8.8 fL (7.4-10.4) 05/10/23 12:52 Neut % (Auto) 78.0 % 05/10/23 12:52 Lymph % (Auto) 13.0 % 05/10/23 12:52 Boundary % (Auto) 7.9 % 05/10/23 12:52 Eos % (Auto) 0.1 % 05/10/23 12:52 Baso % (Auto) 0.3 % 05/10/23 12:52 Neut # (Auto) 13.85 10^3/uL (1.8-7.7) H 05/10/23 12:52 Lymph # (Auto) 2.3 10^3/uL (0.8-4.8) 05/10/23 12:52 Boundary # (Auto) 1.4 10^3/uL (0.2-0.9) H 05/10/23 12:52 Eos # (Auto) 0.0 10^3/uL (0.0-0.8) 05/10/23 12:52 Baso # (Auto) 0.1 10^3/uL (0.0-0.1) 05/10/23 12:52 Nucleated RBC % (auto) 0 % 05/10/23 12:52 Nucleated RBCs # 0.0 /100WBC 05/10/23 12:52 Sodium 131 mmol/L (136-145) L 05/10/23 12:52 Potassium 4.1 mmol/L (3.5-5.1) 05/10/23 12:52 Chloride 91 mmol/L (98-107) L 05/10/23 12:52 Carbon Dioxide 28 mmol/L (22-29) 05/10/23 12:52 Anion Gap 16.1 (5-19) 05/10/23 12:52 BUN 16 mg/dL (8-23) 05/10/23 12:52 Creatinine 0.9 mg/dL (0.5-0.9) 05/10/23 12:52 GFR Calculation 62.1 mL/min (90-130) L 05/10/23 12:52 Glucose 132 mg/dL (65-115) H 05/10/23 12:52 Calculated Osmolality 275 mOsm/kg (285-295) L 05/10/23 12:52 Lactic Acid 1.2 mmol/L (0.5-2.2) 05/10/23 12:52 Calcium 8.6 mg/dL (8.5-10.5) 05/10/23 12:52 Magnesium 1.9 mg/dL (1.7-2.3) 05/10/23 12:52 Total Bilirubin 0.7 mg/dL (0.15-1.2) 05/10/23 12:52 AST 19 U/L (0-32) 05/10/23 12:52 ALT 21 U/L (0-33) 05/10/23 12:52 Alkaline Phosphatase 178 U/L (35-105) H 05/10/23 12:52 Troponin T Baseline 22 ng/L (0-10) H 05/10/23 12:52 Troponin T 120 Minute 21.49 ng/L (0-10) H 05/10/23 15:35 Delta Troponin T -0.51 ABS# (0-10) L 05/10/23 15:35 NT-Pro-B Natriuret Pep 682 pg/mL (0-125) H 05/10/23 12:52 Total Protein 7.1 g/dL (6.6-8.7) 05/10/23 12:52 Albumin 3.5 g/dL (3.5-5.2) 05/10/23 12:52 Globulin 3.6 g/dL (1.3-4.6) 05/10/23 12:52 Urine Color Yellow (Yellow) 05/10/23 14:55 Urine Appearance Cloudy (CLEAR) A 05/10/23 14:55 Urine pH 5 (5-7) 05/10/23 14:55 Ur Specific [place] 1.020 (1.005-1.030) 05/10/23 14:55 Urine Protein 3+ (Negative) H 05/10/23 14:55 Urine Glucose (UA) Norm (Normal) 05/10/23 14:55 Urine Ketones 1+ (Negative) H 05/10/23 14:55 Urine Blood 3+ (Negative) H 05/10/23 14:55 Urine Nitrate Negative (Negative) 05/10/23 14:55 Urine Bilirubin Neg (Negative) 05/10/23 14:55 Urine Urobilinogen Norm mg/dL (Negative) 05/10/23 14:55 Ur Leukocyte Esterase 2+ (Negative) H 05/10/23 14:55 Urine RBC Too numerous to cnt /hpf (0-2) H 05/10/23 14:55 Urine WBC Too numerous to cnt /hpf (0-5) H 05/10/23 14:55 Ur Squamous Epith Cells 5-10 /hpf (0-5) H 05/10/23 14:55 Amorphous Sediment Not Reportable 05/10/23 14:55 Urine Bacteria 4+ /hpf (NONE) H 05/10/23 14:55 Coronavirus 229E (PCR) Not detected (NOT DETECT) 05/10/23 14:16 Influenza A (H1) PCR Not detected (NOT DETECT) 05/10/23 14:16 Influ A (H1/09) PCR Not detected (NOT DETECT) 05/10/23 14:16 Influenza A (H3) PCR Not detected (NOT DETECT) 05/10/23 14:16 Influenza Type A Ag Cancelled 05/10/23 14:16 Influenza Type A (PCR) Not detected (NOT DETECT) 05/10/23 14:16 Influenza Type B Ag Cancelled 05/10/23 14:16 Influenza Type B (PCR) Not detected (NOT DETECT) 05/10/23 14:16 SARS-CoV-2 (PCR) Not detected (NOT DETECT) 05/10/23 14:16 All radiology interpretation(s) finalized by discharge Discharge Plan Discharge Patient Disposition: Admitted As Inpatient Admit Provider: Riley Rhodes Clinical Impression: Acute pyelonephritis, Sepsis Condition: Stable Coding Level of Care Code ED Institute Director for Major Strange
[2023-05-10 13:04] LABS: Basophils # 0.1 10^3/uL (0.0-0.1); Basophils % 0.3 %; Eosinophils % 0.1 %; Hematocrit 28.4 % (36-47); Lymphocytes # 2.3 10^3/uL (0.8-4.8); Mean Corpuscular HGB Conc 31.3 g/dL (30-55); Mean Corpuscular Hemoglobin 27.6 pg (27-33); Mean Corpuscular Volume 88.2 fl (85-98); Mean Platelet Volume 8.8 fL (7.4-10.4); Monocytes # 1.4 10^3/uL (0.2-0.9); Monocytes % 7.9 %; Neutrophils # 13.85 10^3/uL (1.8-7.7); Nucleated Red Blood Cells % 0 %; Platelet Count 591 10^3/cmm (157-399); Red Blood Count 3.22 10^6/uL (3.85-5.65); Red Cell Distribution Width 13.7 % (12.1-15.1); White Blood Count 17.75 10^3/uL (3.29-11.43)
[2023-05-10 13:16] LABS: Lactic Sepsis W/Reflex 1.2 mmol/L (0.5-2.2)
[2023-05-10 13:26] LABS: Alanine Aminotransferase 21 U/L (0-33); Albumin Level 3.5 g/dL (3.5-5.2); Alkaline Phosphatase 178 U/L (35-105); Anion Gap 16.1 (5-19); Aspartate Amino Transferase 19 U/L (0-32); Blood Urea Nitrogen 16 mg/dL (8-23); Calcium 8.6 mg/dL (8.5-10.5); Carbon Dioxide 28 mmol/L (22-29); Chloride 91 mmol/L (98-107); Globulin 3.6 g/dL (1.3-4.6); Glomerular Filtration Rate 62.1 mL/min (90-130); Glucose 132 mg/dL (65-115); Magnesium 1.9 mg/dL (1.7-2.3); NT Pro B Type Natriuretic Pept 682 pg/mL (0-125); Osmolality Calculated 275 mOsm/kg (285-295); Potassium 4.1 mmol/L (3.5-5.1); Sodium 131 mmol/L (136-145); Total Bilirubin 0.7 mg/dL (0.15-1.2); Total Protein 7.1 g/dL (6.6-8.7)
--- NOTE | 2023-05-10 13:30 | PC.NURSE ---
LAB NOTIFIED OF BLOOD CULTURES ORDERED. ANTIBIOTICS DELAYED DUE TO NEEDING THE BLOOD CULTURES BEFORE ADMINISTRATION OF ANTIBIOTICS.
[2023-05-10] MEDS: acetaminophen 325 mg Tablet 650 MG PO (14:13)
--- NOTE | 2023-05-10 14:26 | PC.PHAR ---
pt is from [facility] [phone]-medications entered are from the [facility] and order summary report phuong lopez sent-ext med history shows a eliquis 5mg bid filled 05/10/23 30d/s called [facility] l[facility] spoke with nimesh states the pt takes eliquis 2.5mg bid-
--- NOTE | 2023-05-10 14:38 | ECG_ITS ---
[facility] Test Date: 2023-05-10 Pat Name: Santa Chi Department: Room: Gender: Female Hide Salter: : 1955 Requested By: Porfirio Ugalde Order Number: [id number] Venancio MD: Kwaku Camara M.D. Measurements Intervals [place] Rate: 107 P: 44 MA: 133 QRS: 24 QRSD: 84 T: 53 QT: 333 QTc: 446 Interpretive Statements SINUS TACHYCARDIA Compared to ECG 04/23/2023 10:37:58 Sinus rhythm no longer present Electronically Signed On 05-11-2023 5:56:20 BELL STAFF by Kwaku Camara M.D. [email or web address] [email or web address]/store/[id number]
[2023-05-10 14:56] LABS: Troponin(5th) Baseline 22 ng/L (0-10)
[2023-05-10 15:09] LABS: Add Urine Culture? Yes; Add Urine Microscopic? YES; Bacteria Urine 4+ /hpf; Bilirubin Urine Neg (Negative); Blood Urine 3+ (Negative); Glucose Urine UA Norm (Normal); Ketones Urine 1+ (Negative); Leukocyte Esterase Urine 2+ (Negative); Nitrate Urine Negative (Negative); Protein Urine 3+ (Negative); RBC Urine TOO NUMEROUS TO CNT /hpf (0-2); Urine Appearance Cloudy (CLEAR); Urine Color Yellow (Yellow); Urobilinogen Urine Norm (Negative); WBC Urine TOO NUMEROUS TO CNT /hpf (0-5); pH Urine 5 (5-7)
--- NOTE | 2023-05-10 15:21 | CTR_ITS ---
PROCEDURE INFORMATION: Exam: CT Abdomen And Pelvis Without Contrast Exam date and time: 05/10/2023 4:07 PM Age: 67 years old Clinical indication: Abdominal pain; Additional info: Flank pain TECHNIQUE: Imaging protocol: Computed tomography of the abdomen and pelvis without contrast. Radiation optimization: All CT scans at this facility use at least one of these dose optimization techniques: automated exposure control; mA and/or kV adjustment per patient size (includes targeted exams where dose is matched to clinical indication); or iterative reconstruction. COMPARISON: CR XR hip RT 2-3V wo/w pel* [id number] 05/08/2023 11:00 AM RADIATION DOSE METRICS: Total DLP (mGy-cm): 815.43 FINDINGS: Lungs: Lung bases are clear. No pleural effusion. Liver: Normal. No mass. Gallbladder and bile ducts: Normal. No calcified stones. No ductal dilation. Pancreas: Normal. No ductal dilation. Spleen: Normal. No splenomegaly. Adrenal glands: Normal. No mass. Kidneys and ureters: The left kidney appears edematous and there is mild dilatation and edema involving the entire left ureter. I see no ureteral stone. Stomach and bowel: Unremarkable. No obstruction. No mucosal thickening. Appendix: No evidence of appendicitis. Intraperitoneal space: Unremarkable. No free air. No significant fluid collection. Vasculature: Unremarkable. No abdominal aortic aneurysm. Lymph nodes: Unremarkable. No enlarged lymph nodes. Urinary bladder: There is a tiny air bubble in the lumen of the bladder. Reproductive: Unremarkable as visualized. Bones/joints: Metallic surgical hardware can be seen in the lumbar spine. A right hip prosthesis is noted. Soft tissues: Unremarkable. CT/CT kidney stone [id number] IMPRESSION: Findings consistent with left-sided pyelonephritis
[2023-05-10] MEDS: sodium chloride 0.9% 1,000 ML 999 ML IV (15:46)
[2023-05-10] MEDS: cefTRIAXone 2,000 MG in sodium chloride 0.9% (plus) 50 ML 100 MG IV (15:47)
[2023-05-10 16:16] LABS: Troponin 5 2HR 21.49 ng/L (0-10)
[2023-05-10 16:17] LABS: Adenovirus Not Detected (NOT DETECT); Chlamydia Pneumoniae Not Detected (NOT DETECT); Coronavirus 229E,HKU1,NL63,OC4 Not Detected (NOT DETECT); Human Metapneumovirus Not Detected (NOT DETECT); Human Rhinovirus/Enterovirus Not Detected (NOT DETECT); Influenza A Not Detected (NOT DETECT); Influenza A H1 Not Detected (NOT DETECT); Influenza A H1-2009 Not Detected (NOT DETECT); Influenza A H3 Not Detected (NOT DETECT); Influenza B Not Detected (NOT DETECT); Mycoplasma Pneumoniae Not Detected (NOT DETECT); Parainfluenza Virus Type 1 Not Detected (NOT DETECT); Parainfluenza Virus Type 2 Not Detected (NOT DETECT); Parainfluenza Virus Type 3 Not Detected (NOT DETECT); Parainfluenza Virus Type 4 Not Detected (NOT DETECT); Respiratory Syncytial Virus A Not Detected (NOT DETECT); Respiratory Syncytial Virus B Not Detected (NOT DETECT); SARS-COV-2 Not Detected (NOT DETECT)
[2023-05-10 16:18] LABS: Troponin 5 2HR Delta -0.51 ABS# (0-10)
[2023-05-10 16:19] LABS: Influenza A Not Detected (NOT DETECT); Influenza A H1 Not Detected (NOT DETECT); Influenza A H1-2009 Not Detected (NOT DETECT); Influenza A H3 Not Detected (NOT DETECT); Influenza B Not Detected (NOT DETECT); Results from Genmark
--- NOTE | 2023-05-10 16:42 | ECG_ITS ---
[facility] Test Date: 2023-05-10 Pat Name: Santa Chi Department: Room: Gender: Female Traffic Attendant: : 1955 Requested By: Porfirio Ugalde Order Number: [id number] Venancio MD: Kwaku Camara M.D. Measurements Intervals [place] Rate: 103 P: 59 [place]: 143 QRS: 41 QRSD: 95 T: 70 QT: 355 QTc: 465 Interpretive Statements SINUS TACHYCARDIA Compared to ECG 05/10/2023 14:38:49 No significant changes Electronically Signed On 05-11-2023 6:02:46 SCREENER OPERATOR by Kwaku Camara M.D. [email or web address] Insp[facility]el[facility] hospitalBlue Water [email or web address]/store/[id number]
--- NOTE | 2023-05-10 17:08 | P.HP_ITS ---
Providers/Chief Complaint 2 Admitting Physician: Riley Rhodes MD Primary Care Provider: Gino Recio MD Chief Complaint: chest pain with fever History of Present Illness Santa Chi is a 67 year old female with recent hip surgery currently coming from [facility] presented with chief complaint of fever nausea epigastric pain and flank pain. Patient has been experiencing fever since Saturday, she is also experiencing right-sided flank pain with burning on micturition in the ER she has been diagnosed with sepsis related to pyelonephritis. Patient is stating that surgical site has been causing more pain. No signs of stroke or unstable angina at this point. Review of Systems 2 Const: Reports: fever(s), chills and fatigue Eyes: Denies: change in vision ENMT: Denies: throat pain Card: Denies: chest pain Resp: Denies: dyspnea GI: Reports: abdominal pain and nausea : Reports: flank pain, difficulty voiding and urinary urgency Musc: Denies: neck pain Skin/Breast: Denies: rash Neuro: Denies: headache(s) Medications/Allergies Home Medications Medication Instructions Recorded Confirmed Last Taken Type calcium carbonate 600 mg calcium 600 mg PO BID@,08/20/19 05/10/23 05/10/23 History (1,500 mg) tablet incontinence underwear #90 ea 01/16/23 05/10/23 Unknown Rx melatonin 10 mg tablet 20 mg PO BEDTIME@04/24/23 05/10/23 05/09/23 History acetaminophen 500 mg tablet 1,000 mg (2 x 500 mg) PO Q8H 15 04/29/23 05/10/23 05/10/23 Rx days #90 tabs albuterol sulfate 2.5 mg/3 mL 2.5 mg inhalation Q4H 05/10/23 05/10/23 Unknown History (0.083 %) solution for nebulization amino acids-protein hydrolysate 15 See Rx Instructions .Route .COMPLEX 05/10/23 05/10/23 Unknown History gram-101 kcal/30 mL oral liquid amitriptyline 50 mg tablet 50 mg PO BEDTIME@17 05/10/23 05/10/23 05/09/23 History apixaban 2.5 mg tablet (Eliquis) 2.5 mg PO BID@05/10/23 05/10/23 05/10/23 History aripiprazole 2 mg tablet 2 mg PO DAILY@05/10/23 05/10/23 05/10/23 History atorvastatin 40 mg tablet 40 mg PO BEDTIME@05/10/23 05/10/23 05/09/23 History bisacodyl 10 mg rectal suppository 10 mg WI DAILY PRN Constipation 05/10/23 05/10/23 Unknown History (Dulcolax (bisacodyl)) duloxetine 60 mg capsule,delayed 120 mg PO DAILY@05/10/23 05/10/23 05/10/23 History release magnesium hydroxide 400 mg/5 mL 30 ml PO DAILY PRN Constipation 05/10/23 05/10/23 Unknown History oral suspension (Milk of Magnesia) metoprolol tartrate 25 mg tablet 25 mg PO BID@05/10/23 05/10/23 05/10/23 History multivitamin 1 tab PO DAILY@05/10/23 05/10/23 05/10/23 History omeprazole 40 mg capsule,delayed 40 mg PO DAILY@05/10/23 05/10/23 05/10/23 History release oxycodone 5 mg tablet 5 mg PO Q8H PRN Pain 05/10/23 05/10/23 Unknown History pregabalin 75 mg capsule (Lyrica) 75 mg PO BID@05/10/23 05/10/23 05/10/23 History sodium phosphates 19 gram-7 118 ml WI DAILY PRN Constipation 05/10/23 05/10/23 Unknown History gram/118 mL enema (Fleet Enema) Allergies Allergy/AdvReac Type Severity Reaction Status Date / Time morphine AdvReac Mild ADR-Abdominal Verified 05/10/23 14:06 pain PFSH Acute 2 PFSH: Medical History Poor dentition Arthritis of right hip PAD (peripheral artery disease) Obesity, Class II, BMI 35-39.9 TREMAINE (obstructive sleep apnea) GERD (gastroesophageal reflux disease) Facet arthritis, degenerative, lumbar spine Major depressive disorder, recurrent, moderate Left leg DVT Peripheral neuropathy Hypertension Hyperlipidemia Prediabetes Hx of non-ST elevation myocardial infarction (NSTEMI) Chronic migraine Tachycardia Surgical History Previous back surgery L4-L5 H/O rotator cuff surgery Right H/O section x2 Family History Father Dementia Stroke Social History Smoking and tobacco/nicotine status: former use of tobacco/nicotine Second hand smoke exposure: No Alcohol intake: current Alcohol intake frequency: holidays/special occasions only Substance/Drug Use: never Do you think of yourself as: Straight/Heterosexual Current gender identity: Female Female Reproductive History: Spontaneous abortions: No Vitals/I&O/Wt Last Vital Signs Temp 100.2 F H 05/10/23 12:37 Pulse 105 H 05/10/23 16:30 Resp 17 05/10/23 12:37 BP 111/63 05/10/23 16:30 Pulse Ox 97 05/10/23 16:30 O2 Del Method Room Air 05/10/23 16:30 Weight last 48 hrs Weight 87.09 kg Physical Exam 2 Narrative: Awake and alert GCS 15 currently on room air Abdomen soft Nonfocal neuroexam No active chest pain or shortness of breath Lower extremity no swelling Nonpitting edema of legs noted Pleasant cooperative Nonfocal neuroexam S1, S2 tachycardia sinus rhythm Data 05/10/23 12:52 05/10/23 12:52 Micro: Microbiology 05/10/23 15:35 Blood Culture - Preliminary Blood SPECIMEN COLLECTED 05/10/23 15:35 Blood Culture - Preliminary Blood SPECIMEN COLLECTED A&P Assessment and plan (1) Hypertension: Qualifiers: Hypertension type: essential hypertension Qualified Code(s): I10 - Essential (primary) hypertension (2) Tachycardia: (3) PAD (peripheral artery disease): (4) Chronic anticoagulation: (5) Left leg DVT: Qualifiers: Affected thrombotic vein of extremity: unspecified vein of extremity C hronicity: acute Qualified Code(s): I82.402 - Acute embolism and thrombosis of unspecified deep veins of left lower extremity (6) Arthritis of right hip: (7) S/P total right hip arthroplasty: (8) TREMAINE (obstructive sleep apnea): (9) Pyelonephritis: (10) Sepsis: Plan Sepsis related to pyelonephritis Will give her septic bolus start broad-spectrum antibiotics I will continue her antipsychotics and anxiolytics No active chest pain EKG without any ischemic or infarctive changes I will continue her Eliquis recent hip surgery complaining of pain on her right hip Will wait for blood and urine cultures to decide on final antibiotics Patient is from [facility] She can have regular diet Will request physical therapy as well Tachycardia, patient seems to be in sinus rhythm, I will continue Eliquis for now Stating that she does not have any history of atrial flutter or A-fib Attestations 2 Medical Necessity Statement*: More than 2 midnights anticipated for sepsis related to pyelonephritis Diagnoses Essential hypertension I10 Hypertension type: essential hypertension Tachycardia R00.0 PAD (peripheral artery disease) I73.9 Chronic anticoagulation Z79.01 Acute deep vein thrombosis (DVT) of left lower extremity, unspecified vein I82.402 Affected thrombotic vein of extremity: unspecified vein of extremity Chronicity: acute Arthritis of right hip M16.11 S/P total right hip arthroplasty Z96.641 TREMAINE (obstructive sleep apnea) G47.33 Pyelonephritis N12 Sepsis A41.9
[2023-05-10] MEDS: metoprolol tartrate 1 mg/1 mL SDV 5 mL 2.5 MG IVP (18:19)
[2023-05-10] MEDS: metoprolol tartrate 25 mg Tablet PO ×2 (18:19→22:33)
--- NOTE | 2023-05-10 18:27 | PC.NURSE ---
PT HEARTRATE INCREASED FROM 125 BPM TO 146 BPM. PT ALSO COMPLAINING OF CHEST PAIN 11/08. EKG PERFORMED AND GIVEN TO DR. MENDES. METOPROLOL ORDERED PO AND IV. HEART RATE BACK TO 125 BPM. VERBAL ORDERS FROM DR. MENDES TO CONTACT DR. MERRILL. DR. MERRILL NOTIFIED OF MEDICATIONS GIVEN AND THE OUTCOME OF THE MEDICATIONS. DR. MERRILL CHANGED THE PATIENT TO BE ADMITTED INTO [facility] INSTEAD OF [facility].
[2023-05-10] MEDS: lidocaine 2% viscous 15 ML, aluminum-mag hydrox-simethicon 30 ML, sucralfate oral liq 1 GM PO (18:45)
[2023-05-10] MEDS: HYDROmorphone 1 mg/mL INJ 1 mL 0.4 MG IVP (18:45)
[2023-05-10] MEDS: enoxaparin 100 mg/mL Syringe 90 MG SUBCUT (18:46)
--- NOTE | 2023-05-10 19:14 | CTR_ITS ---
PROCEDURE INFORMATION: Exam: CTA Chest With Contrast Exam date and time: 05/10/2023 7:51 PM Age: 67 years old Clinical indication: Pain and abnormal findings; Abnormal diagnostic tests; Elevated d-dimer; Shortness of breath; Chest pressure; Prior surgery; Surgery date: 6+ months; Surgery type: RT rotator cuff; Patient HX: Cp with SOB. Dimer 3.97; Additional info: Ua TECHNIQUE: Imaging protocol: Computed tomographic angiography of the chest with contrast. Exam focused on the arteries. 3D rendering (Not supervised by radiologist): MIP and/or 3D reconstructed images were created by the technologist. Radiation optimization: All CT scans at this facility use at least one of these dose optimization techniques: automated exposure control; mA and/or kV adjustment per patient size (includes targeted exams where dose is matched to clinical indication); or iterative reconstruction. Contrast material: OMNI 350; Contrast volume: 66 ml; Contrast route: INTRAVENOUS (IV); COMPARISON: CR XR chest 1V portable [id number] 05/10/2023 12:46 PM RADIATION DOSE METRICS: Total DLP (mGy-cm): 431.79 FINDINGS: Pulmonary arteries: Normal. No pulmonary emboli. Aorta: No aortic aneurysm. No aortic dissection. Lungs: No consolidation. No masses. Pleural spaces: No pneumothorax. No pleural effusion. Heart: No cardiomegaly. No pericardial effusion. Lymph nodes: No enlarged lymph nodes. Bones/joints: No acute fracture. Soft tissues: Unremarkable. Other findings: Abdomen findings can be referenced on separate report. CT/CT angio chest PE protcl [id number] IMPRESSION: No acute findings.
[2023-05-10 19:16] LABS: Troponin 5 6HR 19.16 ng/L (0-10)
[2023-05-10 19:17] LABS: Troponin 5 6HR Delta -2.84 ng/L (0-12)
[2023-05-10 19:23] LABS: D Dimer 3.97 ug/mLFEU (0-0.59)
--- NOTE | 2023-05-10 19:53 | PC.NURSE ---
Pt. had urinary incontinence in the bed. I had the patient sit on bed side commode and cleaned her bed and changed her linens. Pt. was able to stand up and pivot to commode and back to bed with minimal assist. Pt. states that she has been ambulatory on her own at home.
[2023-05-10] MEDS: iohexol 350 mg/mL 500 mL Btl (per mL) IV (19:59)
--- NOTE | 2023-05-10 20:37 | ECG_ITS ---
[facility] Test Date: 2023-05-10 Pat Name: Santa Chi Department: Room: 252 Gender: Female Farm Specialist: : 1955 Requested By: Porfirio Ugalde Order Number: [id number] Venancio MD: Kwaku Camara M.D. Measurements Intervals [place] Rate: 136 P: 64 [place]: 141 QRS: 37 QRSD: 85 T: 63 QT: 292 QTc: 440 Interpretive Statements SINUS TACHYCARDIA MINIMAL ST DEPRESSION [0.025+ mV ST DEPRESSION] Compared to ECG 05/10/2023 16:42:55 ST (T wave) deviation now present Electronically Signed On 05-11-2023 6:00:15 WEB SITE ADMINISTRATOR by Kwaku Camara M.D. [id number]
[2023-05-10] MEDS: piperacillin-tazobactam 3.375 GM in sodium chloride 0.9% (plus) 50 ML IV (22:32)
[2023-05-10] MEDS: sodium chloride 0.9% 1,000 ML 75 ML IV (22:33)
[2023-05-11] VITALS (44 sets, daily range): BP systolic 94–123; BP diastolic 48–66; PULSE 87–113; RESP 16–35; TEMP 36.6–38.2; O2SAT 70–99
[2023-05-11] MEDS: oxyCODONE 5 mg IR Tab/Cap PO (00:28)
[2023-05-11 01:08] LABS: Basophils # 0.1 10^3/uL (0.0-0.1); Basophils % 0.3 %; Eosinophils % 0.1 %; Hematocrit 27.3 % (36-47); Lymphocytes # 2.2 10^3/uL (0.8-4.8); Lymphocytes % 11.4 %; Mean Corpuscular HGB Conc 31.5 g/dL (30-55); Mean Corpuscular Hemoglobin 27.9 pg (27-33); Mean Corpuscular Volume 88.6 fl (85-98); Mean Platelet Volume 8.9 fL (7.4-10.4); Monocytes # 1.6 10^3/uL (0.2-0.9); Monocytes % 8.3 %; Neutrophils # 14.99 10^3/uL (1.8-7.7); Neutrophils % 79.3 %; Nucleated Red Blood Cells % 0 %; Platelet Count 568 10^3/cmm (157-399); Red Blood Count 3.08 10^6/uL (3.85-5.65); Red Cell Distribution Width 13.8 % (12.1-15.1); White Blood Count 18.89 10^3/uL (3.29-11.43)
--- NOTE | 2023-05-11 01:18 | ECG_ITS ---
[facility] Test Date: 2023-05-11 Pat Name: Santa Chi Department: Room: 102 Gender: Female Price Economist: : 1955 Requested By: Porfirio Ugalde Order Number: [id number] Venancio MD: Kwaku Camara M.D. Measurements Intervals [place] Rate: 105 P: 46 [place]: 133 QRS: 22 QRSD: 86 T: 56 QT: 322 QTc: 426 Interpretive Statements SINUS TACHYCARDIA ABNORMAL RHYTHM ECG Compared to ECG 05/10/2023 18:08:33 ST (T wave) deviation no longer present Electronically Signed On 05-11-2023 5:59:12 ENERGY BROKER by Kwaku Camara M.D. [id number]
[2023-05-11 01:26] LABS: Troponin 5 6HR 31.31 ng/L (0-10)
[2023-05-11 01:30] LABS: Anion Gap 19.8 (5-19); Blood Urea Nitrogen 14 mg/dL (8-23); Carbon Dioxide 25 mmol/L (22-29); Chloride 96 mmol/L (98-107); Glucose 137 mg/dL (65-115); Magnesium 1.9 mg/dL (1.7-2.3); Osmolality Calculated 285 mOsm/kg (285-295); Potassium 4.8 mmol/L (3.5-5.1); Sodium 136 mmol/L (136-145); Troponin 5 6HR Delta 9.31 ng/L (0-12)
[2023-05-11 01:49] LABS: Calcium 8.1 mg/dL (8.5-10.5)
[2023-05-11] MEDS: piperacillin-tazobactam 3.375 GM in sodium chloride 0.9% (plus) 50 ML IV ×2 (04:18→12:34)
[2023-05-11] MEDS: albuterol 2.5 mg/3 mL Neb INHALATION ×5 (04:28→15:23)
[2023-05-11] MEDS: ARIPiprazole 2 mg Tablet PO (06:13)
[2023-05-11] MEDS: enoxaparin 100 mg/mL Syringe 90 MG SUBCUT (06:13)
[2023-05-11] MEDS: duloxetine 60 mg Capsule 120 MG PO (06:13)
[2023-05-11] MEDS: pantoprazole DR 40 mg Tablet PO (06:13)
[2023-05-11] MEDS: metoprolol tartrate 25 mg Tablet PO ×2 (08:45→17:32)
[2023-05-11] MEDS: pregabalin 75 mg Capsule PO ×2 (08:45→17:32)
[2023-05-11] MEDS: sodium chloride 0.9% 1,000 ML 75 ML IV ×2 (08:45→22:03)
--- NOTE | 2023-05-11 08:50 | P.PN_ITS ---
Subjective 2 Subjective: Leukocytosis noted No fever this morning Patient is still tachycardic added amiodarone Patient is endorsing pain in epigastric region which normally starts when she coughs or take a deep breath Vitals/I&O/Wt Last Vital Signs Temp 99.5 F 05/11/23 07:02 Pulse 110 H 05/11/23 08:44 Resp 18 05/11/23 08:39 BP 119/59 05/11/23 07:02 Pulse Ox 97 05/11/23 08:39 O2 Del Method Room Air 05/11/23 08:44 O2 Flow Rate 2 05/11/23 08:39 05/10/23 05/11/23 05/11/23 22:59 06:59 14:59 Intake Total 1050 / 1050 550 / 1600 815 / 815 Output Total 400 / 400 Balance 1050 / 1050 150 / 1200 815 / 815 Weight last 48 hrs Weight 90.5 kg Weight 92 kg Weight 91.5 kg Weight 87.09 kg Physical Exam 2 Narrative: Awake and alert Pleuritic pain Euvolemic GCS 15 Nonfocal Nonfocal neuroexam Currently on room air Sinus tachycardia heart rate 112 Urinary Catheter Management: Roper: Cath Placed During This Visit: yes Urinary Catheter Date of Insertion: 05/10/23 Urinary Catheter Time of Insertion: 21:05 Data 05/11/23 01:00 05/11/23 01:00 Micro: Microbiology 05/10/23 15:35 Blood Culture - Preliminary Blood SPECIMEN COLLECTED 05/10/23 15:35 Blood Culture - Preliminary Blood SPECIMEN COLLECTED A&P Assessment and plan (1) Depression: Qualifiers: Depression Type: major depressive disorder Major depression recurrence: recurrent Active/Remission status: currently active Major depression episode severity: moderate Qualified Code(s): F33.1 - Major depressive disorder, recurrent, moderate (2) Mood disorder: (3) Hypertension: Qualifiers: Hypertension type: essential hypertension Qualified Code(s): I10 - Essential (primary) hypertension (4) Tachycardia: (5) PAD (peripheral artery disease): (6) Chronic anticoagulation: (7) Left leg DVT: Qualifiers: Affected thrombotic vein of extremity: unspecified vein of extremity C hronicity: acute Qualified Code(s): I82.402 - Acute embolism and thrombosis of unspecified deep veins of left lower extremity (8) Incontinence in female: (9) Pyelonephritis: (10) Sepsis: (11) S/P total right hip arthroplasty: Plan Sepsis related to pyelonephritis Continue antibiotics for 40 hours before seeing a good response For tachycardia continue metoprolol will add amiodarone No sign of PE Patient has pleuritic pain I will discontinue on therapeutic Lovenox and changed to low Eliquis for her previous history of DVT Recent hip surgery Full code Regular diet Patient is still looking dehydrated continue IV fluids Attestations 2 Medical Necessity Statement*: Continue medical management Diagnoses Moderate episode of recurrent major depressive disorder F33.1 Depression Type: major depressive disorder Major depression recurrence: recurrent Active/Remission status: currently active Major depression episode severity: moderate Mood disorder F39 Essential hypertension I10 Hypertension type: essential hypertension Tachycardia R00.0 PAD (peripheral artery disease) I73.9 Chronic anticoagulation Z79.01 Acute deep vein thrombosis (DVT) of left lower extremity, unspecified vein I82.402 Affected thrombotic vein of extremity: unspecified vein of extremity Chronicity: acute Incontinence in female R32 Pyelonephritis N12 Sepsis A41.9 S/P total right hip arthroplasty Z96.641
[2023-05-11] MEDS: acetaminophen 500 mg Tablet PO (08:53)
[2023-05-11] MEDS: amiodarone 200 mg Tablet 400 MG PO ×2 (10:13→17:32)
[2023-05-11] MEDS: apixaban 5 mg Tablet PO ×2 (10:14→21:04)
--- NOTE | 2023-05-11 11:26 | PC.CHAP ---
Pastoral Care Encounter/Spiritual Assessment Type of Contact [] Declined employee communications coordinator visit [] Patient/Family/Request visit [] Outpatient visit [] Follow-up visit [] Physician referral [] Code/Alert [] Routine visit [] Staff referral [] Actively dying [] Patient sleeping [] Family support [] [] Out of room [] Palliative care [] [] Receiving care in room [] Pre-surgical visit [] Trauma [] Long length of stay [] ICU visit [] Other: Relational/Emotional Strength [] Patient feels connected with others/family/visitors/staff [] Distress [] Loneliness/isolation [] Abandonment Spirituality of Patient [] Person of Luann [] Attends Sikh of their Luann [] Believes in Prayer [] Reads Bible or Church materials [] There are Spiritual issues to be addressed Supervisor Post Wave Interventions [] Prayer [] Active listening [] Non-anxious presence [] Spiritual/emotional support [] Crisis/trauma care [] Spiritual counseling [] Bereavement support [] Provided bereavement packet [] Provided Bible/devotional materials [] Provided toy/stuffed animal, coloring book to patient or family member [] Provided Communion [] Anointing/[place] [] Salvation [] Completed spiritual assessment [] Other: Impact on Illness or Injury [] Angry [] Fearful [] Anxious [] Often cries [] Exhaustion [] Unable to work [] Unable to attend quaker [] Unable to walk/stand [] Unable to read [] Unable to drive [] Unable to eat/drink [] Unable to sleep [] Unable to be with family [] Patient intubated [] Other: Summary Patient was asleep, will put on follow up Time spent with patient
--- NOTE | 2023-05-11 17:28 | PC.NURSE ---
pt reports of slight chills and feeling hot. temp checked orally- Temp-100.8F... Dr Notified.
[2023-05-11] MEDS: atorvastatin 40 mg Tablet PO (17:32)
[2023-05-11] MEDS: meropenem 1,000 MG in sodium chloride 0.9% (plus) 50 ML 100 MG IV (18:38)
[2023-05-12] VITALS (21 sets, daily range): BP systolic 108–143; BP diastolic 63–75; PULSE 86–105; RESP 16–25; TEMP 36.6–37.7; O2SAT 85–98
[2023-05-12] MEDS: albuterol 2.5 mg/3 mL Neb INHALATION ×3 (00:39→12:02)
[2023-05-12] MEDS: oxyCODONE 5 mg IR Tab/Cap PO ×3 (01:01→17:04)
[2023-05-12] MEDS: meropenem 1,000 MG in sodium chloride 0.9% (plus) 50 ML 100 MG IV ×3 (01:02→17:59)
[2023-05-12 05:18] LABS: Basophils # 0.1 10^3/uL (0.0-0.1); Basophils % 0.4 %; Eosinophils # 0.1 10^3/uL (0.0-0.8); Eosinophils % 0.9 %; Hematocrit 25.7 % (36-47); Lymphocytes # 1.9 10^3/uL (0.8-4.8); Lymphocytes % 14.4 %; Mean Corpuscular HGB Conc 31.1 g/dL (30-55); Mean Corpuscular Hemoglobin 27.7 pg (27-33); Mean Corpuscular Volume 88.9 fl (85-98); Monocytes % 7.8 %; Neutrophils # 9.91 10^3/uL (1.8-7.7); Nucleated Red Blood Cells % 0 %; Platelet Count 501 10^3/cmm (157-399); Red Blood Count 2.89 10^6/uL (3.85-5.65); Red Cell Distribution Width 14.3 % (12.1-15.1); White Blood Count 13.02 10^3/uL (3.29-11.43)
[2023-05-12 05:39] LABS: Anion Gap 13.4 (5-19); Blood Urea Nitrogen 10 mg/dL (8-23); Calcium 8.2 mg/dL (8.5-10.5); Carbon Dioxide 28 mmol/L (22-29); Chloride 96 mmol/L (98-107); Glomerular Filtration Rate 71.1 mL/min (90-130); Glucose 135 mg/dL (65-115); Osmolality Calculated 277 mOsm/kg (285-295); Potassium 4.4 mmol/L (3.5-5.1); Sodium 133 mmol/L (136-145)
[2023-05-12] MEDS: acetaminophen 500 mg Tablet PO ×2 (06:14→23:43)
[2023-05-12] MEDS: pantoprazole DR 40 mg Tablet PO (06:14)
[2023-05-12] MEDS: duloxetine 60 mg Capsule 120 MG PO (06:14)
[2023-05-12] MEDS: ARIPiprazole 2 mg Tablet PO (06:14)
--- NOTE | 2023-05-12 06:21 | PC.NURSE ---
Spoke with regarding patient with persistent dry cough which is aggravating her migraines. ordered PRN Fela Mathis.
[2023-05-12] MEDS: benzonatate 100 mg Capsule 200 MG PO (06:28)
--- NOTE | 2023-05-12 08:37 | P.PN_ITS ---
Subjective 2 Subjective: Patient is complaining migraine and cough Will request respiratory panel Give her tramadol Leukocytosis improved Afebrile this morning Complaining of anorexia not able to eat much Still dehydrated Vitals/I&O/Wt Last Vital Signs Temp 98.9 F 05/12/23 07:03 Pulse 97 05/12/23 07:53 Resp 20 H 05/12/23 07:53 BP 143/67 05/12/23 07:03 Pulse Ox 98 05/12/23 07:53 O2 Del Method Nasal Cannula 05/12/23 07:53 O2 Flow Rate 2 05/12/23 07:53 05/11/23 05/12/23 05/12/23 22:59 06:59 14:59 Intake Total 1439.5 / 2614.5 450 / 3064.5 Output Total 1200 / 1850 Balance 1439.5 / 1964.5 -750 / 1214.5 Weight last 48 hrs Weight 98 kg Weight 90.5 kg Weight 92 kg Weight 91.5 kg Weight 87.09 kg Physical Exam 2 Narrative: GCS 15 Nonfocal neuroexam S1, S2 Currently on 2 L Complaining of dry cough Pleasant and cooperative Complaining of lethargy and fatigue Urine still concentrated Urinary Catheter Management: Roper: Cath Placed During This Visit: yes Reason for Continuing Indwelling Catheter: Acute Urinary Retention or Obstruction Urinary Catheter Date of Insertion: 05/10/23 Urinary Catheter Time of Insertion: 21:05 Data 05/12/23 04:55 05/12/23 04:55 Micro: Microbiology 05/10/23 15:35 Blood Culture - Preliminary Blood NEGATIVE TO DATE 05/10/23 15:35 Blood Culture - Preliminary Blood NEGATIVE TO DATE A&P Assessment and plan (1) Chronic insomnia: (2) TREMAINE (obstructive sleep apnea): (3) Peripheral neuropathy: Qualifiers: Peripheral neuropathy type: polyneuropathy, other Qualified Code(s): G 62.89 - Other specified polyneuropathies (4) Chronic migraine: (5) S/P total right hip arthroplasty: (6) Pyelonephritis: (7) Sepsis: (8) Chronic anticoagulation: (9) Left leg DVT: Qualifiers: Affected thrombotic vein of extremity: unspecified vein of extremity C hronicity: acute Qualified Code(s): I82.402 - Acute embolism and thrombosis of unspecified deep veins of left lower extremity (10) PAD (peripheral artery disease): (11) Major depressive disorder, recurrent, moderate: Plan Sepsis: Improving No fever today Leukocytosis improving Continue antibiotics I have changed antibiotics to meropenem yesterday for febrile event Will follow-up with blood and urine culture Pyelonephritis symptoms improving Cough Request respiratory panel continue Tessalon Perles and doxycycline Tachycardia improved as well currently heart rate is in 90s History of thromboembolic phenomenon continue Eliquis Plan to discharge her by tomorrow back to the facility if remains afebrile Patient is extremely dehydrated not eating much I will increase IV fluids to 100 mill per hour Continue Protonix Full code Regular diet Attestations 2 Medical Necessity Statement*: Possible discharge in next 24 to 48 hours if remains afebrile Diagnoses Chronic insomnia F51.04 TREMAINE (obstructive sleep apnea) G47.33 Other polyneuropathy G62.89 Peripheral neuropathy type: polyneuropathy, other Chronic migraine G43.709 S/P total right hip arthroplasty Z96.641 Pyelonephritis N12 Sepsis A41.9 Chronic anticoagulation Z79.01 Acute deep vein thrombosis (DVT) of left lower extremity, unspecified vein I82.402 Affected thrombotic vein of extremity: unspecified vein of extremity Chronicity: acute PAD (peripheral artery disease) I73.9 Major depressive disorder, recurrent, moderate F33.1
[2023-05-12] MEDS: apixaban 5 mg Tablet PO ×2 (09:08→19:50)
[2023-05-12] MEDS: amiodarone 200 mg Tablet 400 MG PO ×2 (09:09→19:49)
[2023-05-12] MEDS: metoprolol tartrate 25 mg Tablet PO ×2 (09:09→17:59)
[2023-05-12] MEDS: pregabalin 75 mg Capsule PO ×2 (09:09→17:03)
[2023-05-12] MEDS: doxycycline 100 mg Tablet PO ×2 (09:19→17:59)
[2023-05-12] MEDS: sodium chloride 0.9% 1,000 ML 100 ML IV (09:19)
--- NOTE | 2023-05-12 10:26 | PC.PT ---
PT attempted to see patient at 9:47, but she declined services today stating not today when therapist entered the room. She reports having a lot of medication and feeling tired/unsteady and did not want to attempt standing/walking. She apologized to therapist and stated we can try again tomorrow.
[2023-05-12 17:39] LABS: Adenovirus Not Detected (NOT DETECT); Chlamydia Pneumoniae Not Detected (NOT DETECT); Coronavirus 229E,HKU1,NL63,OC4 Not Detected (NOT DETECT); Human Metapneumovirus Not Detected (NOT DETECT); Human Rhinovirus/Enterovirus Not Detected (NOT DETECT); Influenza A Not Detected (NOT DETECT); Influenza A H1 Not Detected (NOT DETECT); Influenza A H1-2009 Not Detected (NOT DETECT); Influenza A H3 Not Detected (NOT DETECT); Influenza B Not Detected (NOT DETECT); Mycoplasma Pneumoniae Not Detected (NOT DETECT); Parainfluenza Virus Type 1 Not Detected (NOT DETECT); Parainfluenza Virus Type 2 Not Detected (NOT DETECT); Parainfluenza Virus Type 3 Not Detected (NOT DETECT); Parainfluenza Virus Type 4 Not Detected (NOT DETECT); Respiratory Syncytial Virus A Not Detected (NOT DETECT); Respiratory Syncytial Virus B Not Detected (NOT DETECT); SARS-COV-2 Not Detected (NOT DETECT)
--- NOTE | 2023-05-12 18:11 | XRR_ITS ---
PROCEDURE INFORMATION: Exam: XR Chest Exam date and time: 05/12/2023 6:19 PM Age: 67 years old Clinical indication: Shortness of breath; Prior surgery; Surgery date: 6+ months; Surgery type: RT rotator cuff; Patient HX: Worsening SOB. TECHNIQUE: Imaging protocol: Radiologic exam of the chest. Views: 1 view. COMPARISON: CT angio chest PE protcl [id number] 05/10/2023 7:51 PM FINDINGS: Lungs: Interval development of patchy atelectasis in the left lower lobe. Pleural spaces: No pleural effusion. No pneumothorax. Heart/Mediastinum: Stable mild enlargement of the cardiac silhouette. Mediastinal contours are unremarkable. Vasculature: Stable vascular calcifications in the aorta. Bones/joints: Stable postsurgical changes of the right shoulder. XR/XR chest 1V portable [id number] IMPRESSION: 1. Interval development of patchy atelectasis in the left lower lobe. 2. Incidental/nonacute findings are listed in the report.
[2023-05-12] MEDS: TRAMadol 50 mg Tablet PO (19:50)
[2023-05-12] MEDS: atorvastatin 40 mg Tablet PO (19:50)
[2023-05-13] VITALS (16 sets, daily range): BP systolic 98–119; BP diastolic 43–70; PULSE 81–101; RESP 15–21; TEMP 36.4–36.9; O2SAT 92–98
[2023-05-13] MEDS: meropenem 1,000 MG in sodium chloride 0.9% (plus) 50 ML 100 MG IV ×3 (02:01→17:02)
[2023-05-13 04:14] LABS: Basophils % 0.3 %; Eosinophils # 0.2 10^3/uL (0.0-0.8); Eosinophils % 1.9 %; Lymphocytes # 2.1 10^3/uL (0.8-4.8); Lymphocytes % 17.6 %; Mean Corpuscular HGB Conc 30.8 g/dL (30-55); Mean Corpuscular Hemoglobin 26.9 pg (27-33); Mean Corpuscular Volume 87.4 fl (85-98); Mean Platelet Volume 9.3 fL (7.4-10.4); Monocytes # 1.1 10^3/uL (0.2-0.9); Monocytes % 8.9 %; Neutrophils # 8.29 10^3/uL (1.8-7.7); Neutrophils % 70.5 %; Nucleated Red Blood Cells % 0 %; Platelet Count 496 10^3/cmm (157-399); Red Blood Count 2.86 10^6/uL (3.85-5.65); Red Cell Distribution Width 14.5 % (12.1-15.1); White Blood Count 11.76 10^3/uL (3.29-11.43)
[2023-05-13 04:41] LABS: Anion Gap 11.9 (5-19); Blood Urea Nitrogen 8 mg/dL (8-23); Calcium 8.4 mg/dL (8.5-10.5); Carbon Dioxide 27 mmol/L (22-29); Chloride 96 mmol/L (98-107); Glomerular Filtration Rate 122.3 mL/min (90-130); Glucose 119 mg/dL (65-115); Osmolality Calculated 271 mOsm/kg (285-295); Potassium 3.9 mmol/L (3.5-5.1); Sodium 131 mmol/L (136-145)
[2023-05-13] MEDS: duloxetine 60 mg Capsule 120 MG PO (06:25)
[2023-05-13] MEDS: ARIPiprazole 2 mg Tablet PO (06:26)
[2023-05-13] MEDS: pantoprazole DR 40 mg Tablet PO (06:26)
[2023-05-13] MEDS: amiodarone 200 mg Tablet 400 MG PO ×2 (08:48→17:05)
[2023-05-13] MEDS: doxycycline 100 mg Tablet PO ×2 (08:49→17:05)
[2023-05-13] MEDS: apixaban 5 mg Tablet PO ×2 (08:49→20:27)
[2023-05-13] MEDS: metoprolol tartrate 25 mg Tablet PO (08:49)
[2023-05-13] MEDS: pregabalin 75 mg Capsule PO ×2 (08:58→17:05)
[2023-05-13] MEDS: albuterol 2.5 mg/3 mL Neb INHALATION ×4 (09:28→21:24)
--- NOTE | 2023-05-13 09:31 | PC.NURSE ---
had to place the patient back on 2L nasal cannula, when off of oxygen her oxygen reading was dipping to 86 and not coming above 89
--- NOTE | 2023-05-13 10:01 | P.PN_ITS ---
Subjective 2 Subjective: Patient is stating that her appetite is still poor, positive urine appearance has changed to dilute No fever, experienced diaphoresis this morning Vitals/I&O/Wt Last Vital Signs Temp 98.0 F 05/13/23 07:32 Pulse 89 05/13/23 09:32 Resp 16 05/13/23 09:31 BP 116/70 05/13/23 07:32 Pulse Ox 96 05/13/23 09:31 O2 Del Method Nasal Cannula 05/13/23 09:31 O2 Flow Rate 2 05/13/23 09:31 05/12/23 05/13/23 05/13/23 22:59 06:59 14:59 Intake Total 1050.000 / 2685.000 50 / 2735.000 290 / 290 Output Total 750 / 750 350 / 1100 Balance 300.000 / 1935.000 -300 / 1635.000 290 / 290 Weight last 48 hrs Weight 92.5 kg Weight 98 kg Physical Exam 2 Narrative: Signs of fluid overload present with crackles Currently on 2 L GCS 15 Abdomen soft Hemodynamic stable Complaining of migraine Nonfocal neuroexam S1, S2 Urinary Catheter Management: Roper: Cath Placed During This Visit: yes Reason for Continuing Indwelling Catheter: Acute Urinary Retention or Obstruction Urinary Catheter Date of Insertion: 05/10/23 Urinary Catheter Time of Insertion: 21:05 Data 05/13/23 03:01 05/13/23 03:01 Micro: Microbiology 05/10/23 14:55 Urine Culture - Preliminary Urine,Clean Catch Gram Negative Rods A&P Assessment and plan (1) Depression: Qualifiers: Depression Type: major depressive disorder Major depression recurrence: recurrent Active/Remission status: currently active Major depression episode severity: moderate Qualified Code(s): F33.1 - Major depressive disorder, recurrent, moderate (2) PAD (peripheral artery disease): (3) Chronic anticoagulation: (4) Left leg DVT: Qualifiers: Affected thrombotic vein of extremity: unspecified vein of extremity C hronicity: acute Qualified Code(s): I82.402 - Acute embolism and thrombosis of unspecified deep veins of left lower extremity (5) Nutritional deficiency disorder: (6) Poor dentition: (7) GERD (gastroesophageal reflux disease): Qualifiers: Esophagitis presence: without esophagitis Qualified Code(s): K21.9 - Gastro-esophageal reflux disease without esophagitis (8) Incontinence in female: (9) Pyelonephritis: (10) Sepsis: (11) Chronic migraine: (12) TREMAINE (obstructive sleep apnea): Plan Pyelonephritis related sepsis improving No fever Cultures negative urine showing gram-negative darrick Migraine: We will give her Tylenol 3 She has chronic history Anorexia Discontinue IV fluids noticed crackles on lung auscultation Give Lasix this morning Patient is diaphoretic no fever Most likely she will be able to go back to her intermediate by tomorrow on oral antibiotics Left lower lobe atelectasisand incentive spirometer Acute hypoxia requiring 2 L Wean off oxygen to room air I have encouraged patient to walk in the hallway Attestations 2 Medical Necessity Statement*: Discharge tomorrow back to intermediate Diagnoses Moderate episode of recurrent major depressive disorder F33.1 Depression Type: major depressive disorder Major depression recurrence: recurrent Active/Remission status: currently active Major depression episode severity: moderate PAD (peripheral artery disease) I73.9 Chronic anticoagulation Z79.01 Acute deep vein thrombosis (DVT) of left lower extremity, unspecified vein I82.402 Affected thrombotic vein of extremity: unspecified vein of extremity Chronicity: acute Nutritional deficiency disorder E63.9 Poor dentition K08.9 Gastroesophageal reflux disease without esophagitis K21.9 Esophagitis presence: without esophagitis Incontinence in female R32 Pyelonephritis N12 Sepsis A41.9 Chronic migraine G43.709 TREMAINE (obstructive sleep apnea) G47.33
[2023-05-13] MEDS: FUROsemide 10 mg/mL SDV 4mL 40 MG IVP (10:20)
[2023-05-13] MEDS: acetaminophen-codeine 300-30mg Tablet 1 TAB PO (10:20)
[2023-05-13] MEDS: TRAMadol 50 mg Tablet PO ×2 (11:35→20:27)
--- NOTE | 2023-05-13 11:55 | PC.SOCIAL ---
IMM updated Updated pt on IMM. No questions voiced. Provided pt a copy. Initialed, dated, & timed copy in chart.
[2023-05-13] MEDS: atorvastatin 40 mg Tablet PO (17:05)
[2023-05-13] MEDS: benzonatate 100 mg Capsule 200 MG PO (21:26)
[2023-05-14] VITALS (13 sets, daily range): BP systolic 102–150; BP diastolic 50–98; PULSE 82–103; RESP 13–34; TEMP 36.9–37.2; O2SAT 91–97
[2023-05-14] MEDS: meropenem 1,000 MG in sodium chloride 0.9% (plus) 50 ML 100 MG IV ×3 (02:30→17:22)
[2023-05-14 05:21] LABS: Basophils # 0.1 10^3/uL (0.0-0.1); Basophils % 0.7 %; Eosinophils # 0.4 10^3/uL (0.0-0.8); Eosinophils % 3.1 %; Hematocrit 26.9 % (36-47); Lymphocytes # 2.6 10^3/uL (0.8-4.8); Lymphocytes % 20.9 %; Mean Corpuscular HGB Conc 31.2 g/dL (30-55); Mean Corpuscular Hemoglobin 27.3 pg (27-33); Mean Corpuscular Volume 87.3 fl (85-98); Mean Platelet Volume 9.5 fL (7.4-10.4); Monocytes # 1.1 10^3/uL (0.2-0.9); Monocytes % 9.3 %; Neutrophils # 7.94 10^3/uL (1.8-7.7); Neutrophils % 64.6 %; Nucleated Red Blood Cells % 0 %; Platelet Count 579 10^3/cmm (157-399); Red Blood Count 3.08 10^6/uL (3.85-5.65); Red Cell Distribution Width 14.4 % (12.1-15.1); White Blood Count 12.28 10^3/uL (3.29-11.43)
[2023-05-14 05:52] LABS: Blood Urea Nitrogen 8 mg/dL (8-23); Calcium 8.6 mg/dL (8.5-10.5); Carbon Dioxide 28 mmol/L (22-29); Chloride 94 mmol/L (98-107); Glomerular Filtration Rate 99.1 mL/min (90-130); Glucose 115 mg/dL (65-115); Osmolality Calculated 277 mOsm/kg (285-295); Sodium 134 mmol/L (136-145)
[2023-05-14] MEDS: duloxetine 60 mg Capsule 120 MG PO (05:53)
[2023-05-14] MEDS: pantoprazole DR 40 mg Tablet PO (05:53)
[2023-05-14] MEDS: ARIPiprazole 2 mg Tablet PO (05:54)
[2023-05-14] MEDS: albuterol 2.5 mg/3 mL Neb INHALATION ×2 (07:45→15:30)
--- NOTE | 2023-05-14 07:51 | PM.DCS ---
Discharge Providers Date of Admission: 05/10/23 15:49 Date of Discharge: May 14, 2023 Attending Provider at Admission: Riley Rhodes MD Attending Provider at Discharge: Riley Rhodes MD Primary Care Provider: Gino Recio MD Diagnoses at Discharge Discharge Diagnosis (1) Depression: Status: Acute Qualifiers: Active/Remission status: currently active Depression Type: major depressive disorder Major depression episode severity: moderate Major depression recurrence: recurrent Qualified Code(s): F33.1 - Major depressive disorder, recurrent, moderate (2) PAD (peripheral artery disease): Status: Acute (3) Chronic anticoagulation: Status: Acute (4) Left leg DVT: Status: Acute Qualifiers: Affected thrombotic vein of extremity: unspecified vein of extremity Chronicity: acute Qualified Code(s): I82.402 - Acute embolism and thrombosis of unspecified deep veins of left lower extremity (5) Nutritional deficiency disorder: Status: Acute (6) Poor dentition: Status: Acute (7) GERD (gastroesophageal reflux disease): Status: Acute Qualifiers: Esophagitis presence: without esophagitis Qualified Code(s): K21.9 - Gastro-esophageal reflux disease without esophagitis (8) Incontinence in female: Status: Acute (9) Pyelonephritis: Status: Acute (10) Sepsis: Status: Acute (11) Chronic migraine: Status: Acute (12) TREMAINE (obstructive sleep apnea): Status: Acute Reason for Visit Reason for Visit: chest pain with fever Hospital Course Hospital Course 67-year female who was admitted for management and evaluation of sepsis related to pyelonephritis, she was put on Zosyn however secondary to recurrent fever she was transitioned to meropenem urine culture showed E. coli pansensitive no signs of bacteremia, signs of sepsis and bacteremia pyelonephritis improved, she was complaining of some chest congestion and dry cough for which she was put on doxycycline, her leukocytosis improved significantly at the time of discharge it is around 12,000, she did develop left-sided atelectasis I will discharge her back to her facility, she was at the facility for rehab after recent hip surgery. CTA did not show any signs of PE She will finish 10 days treatment for pyelonephritis and 3 more days of doxycycline Physical Exam Narrative: Pleasant cough GCS 15 Awake and alert Abdomen soft Currently on room air Urinary Catheter Management: Roper: Cath Placed During This Visit: yes Reason for Continuing Indwelling Catheter: Acute Urinary Retention or Obstruction Urinary Catheter Date of Insertion: 05/10/23 Urinary Catheter Time of Insertion: 21:05 Discharge Data Studies Completed and Pending Completed Studies During Hospitalization Category Date Time Status CT kidney stone [id number] Stat Cat Scan 05/10/23 15:21 Completed CTA PE [CT angio chest PE protcl [id number]] Stat Cat Scan 05/10/23 19:14 Completed XR chest 1V portable [id number] Stat Exams 05/10/23 12:41 Completed XR chest 1V portable [id number] Stat Exams 05/12/23 18:11 Completed Pending at discharge Category Date Time Status Blood Culture Stat Lab 05/10/23 15:35 Results Radiology Impressions Abdomen/Pelvis CT 05/10/23 15:21 IMPRESSION: Findings consistent with left-sided pyelonephritis Chest CTA 05/10/23 19:14 IMPRESSION: No acute findings. Chest X-Ray 05/12/23 18:11 IMPRESSION: 1. Interval development of patchy atelectasis in the left lower lobe. 2. Incidental/nonacute findings are listed in the report. Laboratory Results WBC 12.28 10^3/uL (3.29-11.43) H 05/14/23 04:16 RBC 3.08 10^6/uL (3.85-5.65) L 05/14/23 04:16 Hgb 8.40 g/dL (11.27-16.99) L 05/14/23 04:16 Hct 26.9 % (36-47) L 05/14/23 04:16 MCV 87.3 fl (85-98) 05/14/23 04:16 MCH 27.3 pg (27-33) 05/14/23 04:16 MCHC 31.2 g/dL (30-55) 05/14/23 04:16 RDW 14.4 % (12.1-15.1) 05/14/23 04:16 Plt Count 579 10^3/cmm (157-399) H 05/14/23 04:16 MPV 9.5 fL (7.4-10.4) 05/14/23 04:16 Neut % (Auto) 64.6 % 05/14/23 04:16 Lymph % (Auto) 20.9 % 05/14/23 04:16 [place] % (Auto) 9.3 % 05/14/23 04:16 Eos % (Auto) 3.1 % 05/14/23 04:16 Baso % (Auto) 0.7 % 05/14/23 04:16 Neut # (Auto) 7.94 10^3/uL (1.8-7.7) H 05/14/23 04:16 Lymph # (Auto) 2.6 10^3/uL (0.8-4.8) 05/14/23 04:16 [place] # (Auto) 1.1 10^3/uL (0.2-0.9) H 05/14/23 04:16 Eos # (Auto) 0.4 10^3/uL (0.0-0.8) 05/14/23 04:16 Baso # (Auto) 0.1 10^3/uL (0.0-0.1) 05/14/23 04:16 Nucleated RBC % (auto) 0 % 05/14/23 04:16 Nucleated RBCs # 0.0 /100WBC 05/14/23 04:16 D-Dimer 3.97 ug/mLFEU (0-0.59) H 05/10/23 18:39 Sodium 134 mmol/L (136-145) L 05/14/23 04:16 Potassium 4.0 mmol/L (3.5-5.1) 05/14/23 04:16 Chloride 94 mmol/L (98-107) L 05/14/23 04:16 Carbon Dioxide 28 mmol/L (22-29) 05/14/23 04:16 Anion Gap 16.0 (5-19) 05/14/23 04:16 BUN 8 mg/dL (8-23) 05/14/23 04:16 Creatinine 0.6 mg/dL (0.5-0.9) 05/14/23 04:16 GFR Calculation 99.1 mL/min (90-130) 05/14/23 04:16 Glucose 115 mg/dL (65-115) 05/14/23 04:16 Calculated Osmolality 277 mOsm/kg (285-295) L 05/14/23 04:16 Lactic Acid 1.2 mmol/L (0.5-2.2) 05/10/23 12:52 Calcium 8.6 mg/dL (8.5-10.5) 05/14/23 04:16 Magnesium 1.9 mg/dL (1.7-2.3) 05/11/23 01:00 Total Bilirubin 0.7 mg/dL (0.15-1.2) 05/10/23 12:52 AST 19 U/L (0-32) 05/10/23 12:52 ALT 21 U/L (0-33) 05/10/23 12:52 Alkaline Phosphatase 178 U/L (35-105) H 05/10/23 12:52 Troponin T Baseline 22 ng/L (0-10) H 05/10/23 12:52 Troponin T 120 Minute 21.49 ng/L (0-10) H 05/10/23 15:35 Delta Troponin T -0.51 ABS# (0-10) L 05/10/23 15:35 Troponin T Hi Sens 6Hr 31.31 ng/L (0-10) H 05/11/23 01:00 Troponin T Hi Sens 6Hr Delta 9.31 ng/L (0-12) 05/11/23 01:00 C-Reactive Protein > 404.3 mg/L (0.0-4.9) H 05/11/23 01:00 NT-Pro-B Natriuret Pep 682 pg/mL (0-125) H 05/10/23 12:52 Total Protein 7.1 g/dL (6.6-8.7) 05/10/23 12:52 Albumin 3.5 g/dL (3.5-5.2) 05/10/23 12:52 Globulin 3.6 g/dL (1.3-4.6) 05/10/23 12:52 Urine Color Yellow (Yellow) 05/10/23 14:55 Urine Appearance Cloudy (CLEAR) A 05/10/23 14:55 Urine pH 5 (5-7) 05/10/23 14:55 Ur Specific [place] 1.020 (1.005-1.030) 05/10/23 14:55 Urine Protein 3+ (Negative) H 05/10/23 14:55 Urine Glucose (UA) Norm (Normal) 05/10/23 14:55 Urine Ketones 1+ (Negative) H 05/10/23 14:55 Urine Blood 3+ (Negative) H 05/10/23 14:55 Urine Nitrate Negative (Negative) 05/10/23 14:55 Urine Bilirubin Neg (Negative) 05/10/23 14:55 Urine Urobilinogen Norm mg/dL (Negative) 05/10/23 14:55 Ur Leukocyte Esterase 2+ (Negative) H 05/10/23 14:55 Urine RBC Too numerous to cnt /hpf (0-2) H 05/10/23 14:55 Urine WBC Too numerous to cnt /hpf (0-5) H 05/10/23 14:55 Ur Squamous Epith Cells 5-10 /hpf (0-5) H 05/10/23 14:55 Amorphous Sediment Not Reportable 05/10/23 14:55 Urine Bacteria 4+ /hpf (NONE) H 05/10/23 14:55 Adenovirus (PCR) Not detected (NOT DETECT) 05/12/23 15:30 C. pneumoniae DNA (PCR) Not detected (NOT DETECT) 05/12/23 15:30 Coronavirus 229E (PCR) Not detected (NOT DETECT) 05/12/23 15:30 Human Metapneumovir PCR Not detected (NOT DETECT) 05/12/23 15:30 Influenza A (H1) PCR Not detected (NOT DETECT) 05/12/23 15:30 Influ A (H1/09) PCR Not detected (NOT DETECT) 05/12/23 15:30 Influenza A (H3) PCR Not detected (NOT DETECT) 05/12/23 15:30 Influenza Type A Ag Cancelled 05/10/23 14:16 Influenza Type A (PCR) Not detected (NOT DETECT) 05/12/23 15:30 Influenza Type B Ag Cancelled 05/10/23 14:16 Influenza Type B (PCR) Not detected (NOT DETECT) 05/12/23 15:30 M. pneumoniae (PCR) Not detected (NOT DETECT) 05/12/23 15:30 Parainfluenza 1 (PCR) Not detected (NOT DETECT) 05/12/23 15:30 Parainfluenza 2 (PCR) Not detected (NOT DETECT) 05/12/23 15:30 Parainfluenza 3 (PCR) Not detected (NOT DETECT) 05/12/23 15:30 Parainfluenza 4 (PCR) Not detected (NOT DETECT) 05/12/23 15:30 RSV Type A (PCR) Not detected (NOT DETECT) 05/12/23 15:30 RSV Type B (PCR) Not detected (NOT DETECT) 05/12/23 15:30 Entero/Rhino (PCR) Not detected (NOT DETECT) 05/12/23 15:30 SARS-CoV-2 (PCR) Not detected (NOT DETECT) 05/12/23 15:30 Vitals Last Vital Signs Temp 98.6 F 05/14/23 07:39 Pulse 90 05/14/23 07:47 Resp 18 05/14/23 07:47 BP 132/98 05/14/23 07:39 Pulse Ox 96 05/14/23 07:47 O2 Del Method Room Air 05/14/23 07:47 O2 Flow Rate 1 05/13/23 11:36 Discharge Plan Discharge Patient Disposition: Xfer SNF Condition: Stable Prescriptions: New doxycycline monohydrate 100 mg Tablet 100 mg PO BID Qty: 6 0RF cefpodoxime 200 mg tablet 200 mg PO BID Qty: 20 0RF Rx Instructions: must administer with a meal/food Continued calcium carbonate 600 mg calcium (1,500 mg) tablet 600 mg PO BID@08,17 (DME) incontinence underwear See Rx Instructions .Route .MEDSUPPLY Qty: 90 2RF Rx Instructions: As directed melatonin 10 mg Tablet 20 mg PO BEDTIME@17 acetaminophen 500 mg Tablet 1,000 mg PO Q8H 15 Days Qty: 90 0RF Rx Instructions: @00:00,08:00,16:00 multivitamin Tablet 1 tab PO DAILY@07 albuterol sulfate 2.5 mg /3 mL (0.083 %) Solution For Nebulization 2.5 mg inhalation Q4H Rx Instructions: until 05/15/2023 while awake Milk of Magnesia 400 mg/5 mL Suspension 30 ml PO DAILY PRN (Reason: Constipation) Dulcolax (bisacodyl) 10 mg Suppository 10 mg [place] DAILY PRN (Reason: Constipation) Fleet Enema 19-7 gram/118 mL Enema 118 ml [place] DAILY PRN (Reason: Constipation) oxycodone 5 mg Tablet 5 mg PO Q8H PRN (Reason: Pain) Pro-Stat 101 15-101 gram-kcal/30 mL Liquid See Rx Instructions .ROUTE .COMPLEX Rx Instructions: 30ml po bid@08,18 atorvastatin 40 mg tablet 40 mg PO BEDTIME@17 omeprazole 40 mg capsule,delayed release(DR/EC) 40 mg PO DAILY@07 amitriptyline 50 mg tablet 50 mg PO BEDTIME@17 metoprolol tartrate 25 mg tablet 25 mg PO BID@08,18 duloxetine 60 mg capsule,delayed release(DR/EC) 120 mg PO DAILY@07 Lyrica 75 mg capsule 75 mg PO BID@09,17 aripiprazole 2 mg tablet 2 mg PO DAILY@07 Changed Eliquis 2.5 mg Tablet 5 mg PO BID@08,19 Qty: 60 0RF Discharge Orders: Discharge Order (Routine); Ordered 05/14/23 Ordered By: Riley Rhodes Referrals: Gino Recio MD [Primary Care Provider] - 05/16/23 3:00 pm Patient Instructions: Doxycycline (By mouth), Cefpodoxime Proxetil (By mouth) (Vantin), Sleep Apnea (GEN), Sepsis (DC), Peripheral Artery Disease (DC), Hypertension (DC) Discharge Attestations Time Spent in Discharge Care*: greater than 30 min Quality Metrics Clinical Quality Measures [ No reported AMI, CVA or VTE this stay] Coding Level of Care Code Acute Code for Chg Fwd Diagnoses Moderate episode of recurrent major depressive disorder F33.1 Active/Remission status: currently active Depression Type: major depressive disorder Major depression episode severity: moderate Major depression recurrence: recurrent PAD (peripheral artery disease) I73.9 Chronic anticoagulation Z79.01 Acute deep vein thrombosis (DVT) of left lower extremity, unspecified vein I82.402 Affected thrombotic vein of extremity: unspecified vein of extremity Chronicity: acute Nutritional deficiency disorder E63.9 Poor dentition K08.9 Gastroesophageal reflux disease without esophagitis K21.9 Esophagitis presence: without esophagitis Incontinence in female R32 Pyelonephritis N12 Sepsis A41.9 Chronic migraine G43.709 TREMAINE (obstructive sleep apnea) G47.33
[2023-05-14] MEDS: pregabalin 75 mg Capsule PO ×2 (08:08→17:22)
[2023-05-14] MEDS: metoprolol tartrate 25 mg Tablet PO ×2 (08:08→17:22)
[2023-05-14] MEDS: apixaban 5 mg Tablet PO ×2 (08:08→20:21)
[2023-05-14] MEDS: amiodarone 200 mg Tablet 400 MG PO ×2 (08:08→17:22)
[2023-05-14] MEDS: doxycycline 100 mg Tablet PO ×2 (08:09→17:22)
[2023-05-14] MEDS: atorvastatin 40 mg Tablet PO (17:22)
--- NOTE | 2023-05-14 18:28 | PM.PN ---
Subjective Subjective: Prior transition To be discharged Medically stable Vitals/I&O/Wt Last Vital Signs Temp 99 F 05/14/23 16:00 Pulse 98 05/14/23 16:00 Resp 13 05/14/23 16:00 BP 129/61 05/14/23 16:00 Pulse Ox 91 05/14/23 16:00 O2 Del Method Nasal Cannula 05/14/23 16:00 O2 Flow Rate 1 05/14/23 16:00 05/14/23 05/14/23 05/14/23 06:59 14:59 22:59 Intake Total 440 / 1740 530 / 530 50 / 580 Output Total 1200 / 2500 950 / 950 Balance -760 / -760 -420 / -420 50 / -370 Weight last 48 hrs Weight 93 kg Weight 92.5 kg Physical Exam Narrative: Awake alert Nonfocal neuroexam GCS 15 Currently on room air Pleasant cooperative Urinary Catheter Management: Roper: Cath Placed During This Visit: yes, but has since been removed by the nurse Reason for Continuing Indwelling Catheter: Decision to DC Catheter Urinary Catheter Date of Insertion: 05/10/23 Urinary Catheter Time of Insertion: 21:05 Date Urinary Catheter Removed: 05/14/23 Time Urinary Catheter Discontinued: 09:15 Data 05/14/23 04:16 05/14/23 04:16 Micro: Microbiology 05/10/23 14:55 Urine Culture - Final Urine,Clean Catch Escherichia coli A&P Assessment and plan (1) Pyelonephritis: (2) Sepsis: Plan Ready to be discharged once we get prior authorization which will increase length of stay Patient medically cleared to be discharged Attestations Medical Necessity Statement*: Ready to be discharged Coding Level of Care Code Acute Code for [facility] Diagnoses Pyelonephritis N12 Sepsis A41.9
[2023-05-14] MEDS: TRAMadol 50 mg Tablet PO (21:02)
[2023-05-15] VITALS (7 sets, daily range): BP systolic 104–162; BP diastolic 55–75; PULSE 85–98; RESP 16–26; TEMP 36.8–37.2; O2SAT 94–95
[2023-05-15] MEDS: meropenem 1,000 MG in sodium chloride 0.9% (plus) 50 ML 100 MG IV ×2 (03:36→10:15)
[2023-05-15] MEDS: duloxetine 60 mg Capsule 120 MG PO (05:58)
[2023-05-15] MEDS: ARIPiprazole 2 mg Tablet PO (05:58)
[2023-05-15] MEDS: pantoprazole DR 40 mg Tablet PO (05:59)
[2023-05-15] MEDS: amiodarone 200 mg Tablet 400 MG PO (08:32)
[2023-05-15] MEDS: metoprolol tartrate 25 mg Tablet PO (08:32)
[2023-05-15] MEDS: apixaban 5 mg Tablet PO (08:33)
[2023-05-15] MEDS: doxycycline 100 mg Tablet PO (08:33)
[2023-05-15] MEDS: albuterol 2.5 mg/3 mL Neb INHALATION (08:34)
--- NOTE | 2023-05-15 09:13 | PC.NURSE ---
NO DISCHARGE WITHIN THE 30 MINUTE TIMEFRAME D/T AWAITING AUTHORIZATION WITH [facility]
[2023-05-15] MEDS: TRAMadol 50 mg Tablet PO (10:30)
--- NOTE | 2023-05-15 11:12 | P.DS_ITS ---
Discharge Providers Date of Admission: 05/10/23 15:49 Date of Discharge: May 15, 2023 Attending Provider at Admission: Riley Rhodes MD Attending Provider at Discharge: Riley Rhodes MD Primary Care Provider: Gino Recio MD Diagnoses at Discharge Discharge Diagnosis (1) Pyelonephritis: Status: Acute (2) Sepsis: Status: Acute Reason for Visit Reason for Visit: chest pain with fever Hospital Course Hospital Course 67-year female who was admitted for management and evaluation of sepsis related to pyelonephritis, she was put on Zosyn however secondary to recurrent fever she was transitioned to meropenem urine culture showed E. coli pansensitive no signs of bacteremia, signs of sepsis and bacteremia pyelonephritis improved, she was complaining of some chest congestion and dry cough for which she was put on doxycycline, her leukocytosis improved significantly at the time of discharge it is around 12,000, she did develop left-sided atelectasis I will discharge her back to her facility, she was at the facility for rehab after recent hip surgery. CTA did not show any signs of PE She will finish 10 days treatment for pyelonephritis and 3 more days of doxycycline Physical Exam Narrative: Pleasant cough GCS 15 Awake and alert Abdomen soft Currently on room air Urinary Catheter Management: Roper: Cath Placed During This Visit: yes, but has since been removed by the nurse Reason for Continuing Indwelling Catheter: Decision to DC Catheter Urinary Catheter Date of Insertion: 05/10/23 Urinary Catheter Time of Insertion: 21:05 Date Urinary Catheter Removed: 05/14/23 Time Urinary Catheter Discontinued: 09:15 Discharge Data Studies Completed and Pending Completed Studies During Hospitalization Category Date Time Status CT kidney stone [id number] Stat Cat Scan 05/10/23 15:21 Completed CTA PE [CT angio chest PE protcl [id number]] Stat Cat Scan 05/10/23 19:14 Completed XR chest 1V portable [id number] Stat Exams 05/10/23 12:41 Completed XR chest 1V portable [id number] Stat Exams 05/12/23 18:11 Completed Pending at discharge Category Date Time Status Blood Culture Stat Lab 05/10/23 15:35 Results Radiology Impressions Abdomen/Pelvis CT 05/10/23 15:21 IMPRESSION: Findings consistent with left-sided pyelonephritis Chest CTA 05/10/23 19:14 IMPRESSION: No acute findings. Chest X-Ray 05/12/23 18:11 IMPRESSION: 1. Interval development of patchy atelectasis in the left lower lobe. 2. Incidental/nonacute findings are listed in the report. Laboratory Results WBC 12.28 10^3/uL (3.29-11.43) H 05/14/23 04:16 RBC 3.08 10^6/uL (3.85-5.65) L 05/14/23 04:16 Hgb 8.40 g/dL (11.27-16.99) L 05/14/23 04:16 Hct 26.9 % (36-47) L 05/14/23 04:16 MCV 87.3 fl (85-98) 05/14/23 04:16 MCH 27.3 pg (27-33) 05/14/23 04:16 MCHC 31.2 g/dL (30-55) 05/14/23 04:16 RDW 14.4 % (12.1-15.1) 05/14/23 04:16 Plt Count 579 10^3/cmm (157-399) H 05/14/23 04:16 MPV 9.5 fL (7.4-10.4) 05/14/23 04:16 Neut % (Auto) 64.6 % 05/14/23 04:16 Lymph % (Auto) 20.9 % 05/14/23 04:16 [place] % (Auto) 9.3 % 05/14/23 04:16 Eos % (Auto) 3.1 % 05/14/23 04:16 Baso % (Auto) 0.7 % 05/14/23 04:16 Neut # (Auto) 7.94 10^3/uL (1.8-7.7) H 05/14/23 04:16 Lymph # (Auto) 2.6 10^3/uL (0.8-4.8) 05/14/23 04:16 [place] # (Auto) 1.1 10^3/uL (0.2-0.9) H 05/14/23 04:16 Eos # (Auto) 0.4 10^3/uL (0.0-0.8) 05/14/23 04:16 Baso # (Auto) 0.1 10^3/uL (0.0-0.1) 05/14/23 04:16 Nucleated RBC % (auto) 0 % 05/14/23 04:16 Nucleated RBCs # 0.0 /100WBC 05/14/23 04:16 D-Dimer 3.97 ug/mLFEU (0-0.59) H 05/10/23 18:39 Sodium 134 mmol/L (136-145) L 05/14/23 04:16 Potassium 4.0 mmol/L (3.5-5.1) 05/14/23 04:16 Chloride 94 mmol/L (98-107) L 05/14/23 04:16 Carbon Dioxide 28 mmol/L (22-29) 05/14/23 04:16 Anion Gap 16.0 (5-19) 05/14/23 04:16 BUN 8 mg/dL (8-23) 05/14/23 04:16 Creatinine 0.6 mg/dL (0.5-0.9) 05/14/23 04:16 GFR Calculation 99.1 mL/min (90-130) 05/14/23 04:16 Glucose 115 mg/dL (65-115) 05/14/23 04:16 Calculated Osmolality 277 mOsm/kg (285-295) L 05/14/23 04:16 Lactic Acid 1.2 mmol/L (0.5-2.2) 05/10/23 12:52 Calcium 8.6 mg/dL (8.5-10.5) 05/14/23 04:16 Magnesium 1.9 mg/dL (1.7-2.3) 05/11/23 01:00 Total Bilirubin 0.7 mg/dL (0.15-1.2) 05/10/23 12:52 AST 19 U/L (0-32) 05/10/23 12:52 ALT 21 U/L (0-33) 05/10/23 12:52 Alkaline Phosphatase 178 U/L (35-105) H 05/10/23 12:52 Troponin T Baseline 22 ng/L (0-10) H 05/10/23 12:52 Troponin T 120 Minute 21.49 ng/L (0-10) H 05/10/23 15:35 Delta Troponin T -0.51 ABS# (0-10) L 05/10/23 15:35 Troponin T Hi Sens 6Hr 31.31 ng/L (0-10) H 05/11/23 01:00 Troponin T Hi Sens 6Hr Delta 9.31 ng/L (0-12) 05/11/23 01:00 C-Reactive Protein > 404.3 mg/L (0.0-4.9) H 05/11/23 01:00 NT-Pro-B Natriuret Pep 682 pg/mL (0-125) H 05/10/23 12:52 Total Protein 7.1 g/dL (6.6-8.7) 05/10/23 12:52 Albumin 3.5 g/dL (3.5-5.2) 05/10/23 12:52 Globulin 3.6 g/dL (1.3-4.6) 05/10/23 12:52 Urine Color Yellow (Yellow) 05/10/23 14:55 Urine Appearance Cloudy (CLEAR) A 05/10/23 14:55 Urine pH 5 (5-7) 05/10/23 14:55 Ur Specific [place] 1.020 (1.005-1.030) 05/10/23 14:55 Urine Protein 3+ (Negative) H 05/10/23 14:55 Urine Glucose (UA) Norm (Normal) 05/10/23 14:55 Urine Ketones 1+ (Negative) H 05/10/23 14:55 Urine Blood 3+ (Negative) H 05/10/23 14:55 Urine Nitrate Negative (Negative) 05/10/23 14:55 Urine Bilirubin Neg (Negative) 05/10/23 14:55 Urine Urobilinogen Norm mg/dL (Negative) 05/10/23 14:55 Ur Leukocyte Esterase 2+ (Negative) H 05/10/23 14:55 Urine RBC Too numerous to cnt /hpf (0-2) H 05/10/23 14:55 Urine WBC Too numerous to cnt /hpf (0-5) H 05/10/23 14:55 Ur Squamous Epith Cells 5-10 /hpf (0-5) H 05/10/23 14:55 Amorphous Sediment Not Reportable 05/10/23 14:55 Urine Bacteria 4+ /hpf (NONE) H 05/10/23 14:55 Adenovirus (PCR) Not detected (NOT DETECT) 05/12/23 15:30 C. pneumoniae DNA (PCR) Not detected (NOT DETECT) 05/12/23 15:30 Coronavirus 229E (PCR) Not detected (NOT DETECT) 05/12/23 15:30 Human Metapneumovir PCR Not detected (NOT DETECT) 05/12/23 15:30 Influenza A (H1) PCR Not detected (NOT DETECT) 05/12/23 15:30 Influ A (H1/09) PCR Not detected (NOT DETECT) 05/12/23 15:30 Influenza A (H3) PCR Not detected (NOT DETECT) 05/12/23 15:30 Influenza Type A Ag Cancelled 05/10/23 14:16 Influenza Type A (PCR) Not detected (NOT DETECT) 05/12/23 15:30 Influenza Type B Ag Cancelled 05/10/23 14:16 Influenza Type B (PCR) Not detected (NOT DETECT) 05/12/23 15:30 M. pneumoniae (PCR) Not detected (NOT DETECT) 05/12/23 15:30 Parainfluenza 1 (PCR) Not detected (NOT DETECT) 05/12/23 15:30 Parainfluenza 2 (PCR) Not detected (NOT DETECT) 05/12/23 15:30 Parainfluenza 3 (PCR) Not detected (NOT DETECT) 05/12/23 15:30 Parainfluenza 4 (PCR) Not detected (NOT DETECT) 05/12/23 15:30 RSV Type A (PCR) Not detected (NOT DETECT) 05/12/23 15:30 RSV Type B (PCR) Not detected (NOT DETECT) 05/12/23 15:30 Entero/Rhino (PCR) Not detected (NOT DETECT) 05/12/23 15:30 SARS-CoV-2 (PCR) Not detected (NOT DETECT) 05/12/23 15:30 Vitals Last Vital Signs Temp 98.6 F 05/15/23 07:12 Pulse 98 05/15/23 08:37 Resp 18 05/15/23 08:37 BP 104/62 05/15/23 07:12 Pulse Ox 95 05/15/23 08:37 O2 Del Method Room Air 05/15/23 08:37 O2 Flow Rate 1 05/14/23 16:00 Discharge Plan Discharge Patient Disposition: Xfer SNF Condition: Stable Prescriptions: New doxycycline monohydrate 100 mg Tablet 100 mg PO BID Qty: 6 0RF cefpodoxime 200 mg tablet 200 mg PO BID Qty: 20 0RF Rx Instructions: must administer with a meal/food Continued calcium carbonate 600 mg calcium (1,500 mg) tablet 600 mg PO BID@08,17 (DME) incontinence underwear See Rx Instructions .Route .MEDSUPPLY Qty: 90 2RF Rx Instructions: As directed melatonin 10 mg Tablet 20 mg PO BEDTIME@17 acetaminophen 500 mg Tablet 1,000 mg PO Q8H 15 Days Qty: 90 0RF Rx Instructions: @00:00,08:00,16:00 multivitamin Tablet 1 tab PO DAILY@07 albuterol sulfate 2.5 mg /3 mL (0.083 %) Solution For Nebulization 2.5 mg inhalation Q4H Rx Instructions: until 05/15/2023 while awake Milk of Magnesia 400 mg/5 mL Suspension 30 ml PO DAILY PRN (Reason: Constipation) Dulcolax (bisacodyl) 10 mg Suppository 10 mg [place] DAILY PRN (Reason: Constipation) Fleet Enema 19-7 gram/118 mL Enema 118 ml [place] DAILY PRN (Reason: Constipation) oxycodone 5 mg Tablet 5 mg PO Q8H PRN (Reason: Pain) Pro-Stat 101 15-101 gram-kcal/30 mL Liquid See Rx Instructions .ROUTE .COMPLEX Rx Instructions: 30ml po bid@08,18 atorvastatin 40 mg tablet 40 mg PO BEDTIME@17 omeprazole 40 mg capsule,delayed release(DR/EC) 40 mg PO DAILY@07 amitriptyline 50 mg tablet 50 mg PO BEDTIME@17 metoprolol tartrate 25 mg tablet 25 mg PO BID@08,18 duloxetine 60 mg capsule,delayed release(DR/EC) 120 mg PO DAILY@07 Lyrica 75 mg capsule 75 mg PO BID@09,17 aripiprazole 2 mg tablet 2 mg PO DAILY@07 Changed Eliquis 2.5 mg Tablet 5 mg PO BID@08,19 Qty: 60 0RF Discharge Orders: Discharge Order (Routine); Ordered 05/15/23 Ordered By: Riley Rhodes Referrals: [facility] [Outside] Gino Recio MD [Primary Care Provider] - 05/16/23 3:00 pm Patient Instructions: Doxycycline (By mouth), Cefpodoxime Proxetil (By mouth) ( Vantin), Sleep Apnea (GEN), Sepsis (DC), Peripheral Artery Disease (DC), Hypertension (DC) Discharge Attestations Time Spent in Discharge Care*: greater than 30 min Quality Metrics Clinical Quality Measures [ No reported AMI, CVA or VTE this stay] Coding Level of Care Code Acute Code for Chg Fwd Diagnoses Pyelonephritis N12 Sepsis A41.9
--- NOTE | 2023-05-15 11:16 | PC.SOCIAL ---
IMM Updated Updated pt on IMM. No questions voiced. Provided pt a copy. Initialed, dated, & timed copy in chart.
--- NOTE | 2023-05-15 12:59 | PC.NURSE ---
REPORT CALLED TO GRACIELA HOOD AT [facility]. ALL QUESTIONS ANSWERED AT THIS TIME. NOTIFIED PT OF DISCHARGE BACK TO [facility].
--- NOTE | 2023-05-15 13:47 | PC.NURSE ---
[facility] CALLS TO CONFIRM PT STILL NEEDS TRANSPORTATION TO [place]. THIS RN ANSWERS ALL QUESTIONS, AND [facility] CONFIRMS THEY ARE SENDING TRANSPORTATION FOR PT AT THIS TIME.
--- NOTE | 2023-05-15 15:08 | PC.NURSE ---
TRANSPORTATION HERE FOR PT
== END 2023-05-15 15:10 | disposition skilled nursing facility (03) | DRG 872 ==
LOC: ER 13:38 → MEDSURG 17:04 → CSU 18:54
PROVIDERS: Admitting Provider Internal Medicine; Emergency Provider Family Medicine; PCP Family Medicine; Visit Provider Internal Medicine
DX: A41.9 Sepsis, unspecified organism (principal); N10 Acute pyelonephritis; J98.11 Atelectasis; F33.1 Major depressive disorder, recurrent, moderate; B96.20 Unspecified Escherichia coli [E. coli] as the cause of diseases classified elsewhere; R09.02 Hypoxemia; G47.33 Obstructive sleep apnea (adult) (pediatric); Z87.891 Personal history of nicotine dependence; R63.0 Anorexia; Z68.37 Body mass index [BMI] 37.0-37.9, adult; F51.04 Psychophysiologic insomnia; R32 Unspecified urinary incontinence; Z96.641 Presence of right artificial hip joint; G43.909 Migraine, unspecified, not intractable, without status migrainosus; I25.2 Old myocardial infarction; R73.03 Prediabetes; E78.5 Hyperlipidemia, unspecified; I10 Essential (primary) hypertension; G62.9 Polyneuropathy, unspecified; Z86.718 Personal history of other venous thrombosis and embolism; Z79.01 Long term (current) use of anticoagulants; K21.9 Gastro-esophageal reflux disease without esophagitis; E66.9 Obesity, unspecified; I73.9 Peripheral vascular disease, unspecified
CPT/HCPCS: 36415; 51702; 71045; 71275; 73502; 74176; 80048; 80053; 81001; 83605; 83735; 83880; 84484; 85025; 85378; 86140; 87040; 87077; 87086; 87186; 87486; 87581; 87631; 87633; 87635; 93005; 94640; 96365; 96367; 96372; 97110; 97116; 97161; 97530; 99024; 99285; J0696; J1170; J1650; J1940; J2185; J2543; J3490; J7030; J7613; Q9967

== ENCOUNTER → 2023-08-29 08:48 | Outpatient (BNVA) | payer MEDICARE, SELFPAY | PROVIDERS: PCP Family Medicine; Visit Provider Podiatrist Foot & Ankle Surgery | DX: B35.1 Tinea unguium (principal); I73.9 Peripheral vascular disease, unspecified | CPT/HCPCS: 11721 ==

== ENCOUNTER 2023-09-02 13:37 | Outpatient (RCR) | payer MEDICARE, SELFPAY | END 2023-09-29 23:59 | disposition home or self-care (01) | LOC: SPT 13:37 | PROVIDERS: Visit Provider Specialist | DX: Z47.1 Aftercare following joint replacement surgery (principal); Z96.641 Presence of right artificial hip joint | CPT/HCPCS: 97110; 97161; 97530 ==

== ENCOUNTER 2023-09-30 06:00 | Outpatient (RCR) | payer MEDICARE, SELFPAY | END 2023-10-30 23:59 | disposition home or self-care (01) | LOC: SPT 06:00 | PROVIDERS: PCP Family Medicine; Visit Provider Specialist | DX: Z47.1 Aftercare following joint replacement surgery (principal); Z96.641 Presence of right artificial hip joint | CPT/HCPCS: 97110; 97530 ==

== ENCOUNTER 2023-10-31 06:00 | Outpatient (RCR) | payer MEDICARE, SELFPAY | END 2023-11-01 23:59 | disposition home or self-care (01) | LOC: SPT 06:00 | PROVIDERS: PCP Family Medicine; Visit Provider Specialist | DX: I73.9 Peripheral vascular disease, unspecified (principal); B35.1 Tinea unguium; Z47.1 Aftercare following joint replacement surgery; Z96.641 Presence of right artificial hip joint | CPT/HCPCS: 11721; 97110 ==

== ENCOUNTER → 2023-12-09 14:13 | Outpatient (BNVA) | payer MEDICARE, OTHER, SELFPAY | PROVIDERS: PCP Family Medicine; Visit Provider Nurse Practitioner | DX: Z96.641 Presence of right artificial hip joint (principal) | CPT/HCPCS: 73502 ==

== ENCOUNTER → 2024-01-02 12:40 | Outpatient (BNVA) | payer MEDICARE, SELFPAY | PROVIDERS: PCP Family Medicine; Visit Provider Podiatrist Foot & Ankle Surgery | DX: B35.1 Tinea unguium (principal); I73.9 Peripheral vascular disease, unspecified | CPT/HCPCS: 11721 ==

== ENCOUNTER 2024-01-03 17:26 | Emergency (ER) | payer MEDICARE, MEDICAID, SELFPAY ==
[2024-01-03] VITALS (45 sets, daily range): BP systolic 130–153; BP diastolic 59–81; PULSE 79–93; RESP 10–26; TEMP 36.6; O2SAT 92–97; BMI 33.6
--- NOTE | 2024-01-03 17:28 | XRR_ITS ---
PROCEDURE INFORMATION: Exam: XR Chest Exam date and time: 01/03/2024 5:55 PM Age: 68 years old Clinical indication: Angina and cough; Patient HX: SOB; Chest pain radiates posterior TECHNIQUE: Imaging protocol: Radiologic exam of the chest. Views: 1 view. COMPARISON: CR XR chest 1V portable [id number] 05/12/2023 6:19 PM FINDINGS: Lungs: Left lower lobe atelectasis Pleural spaces: No pleural effusion or pneumothorax noted. Heart/Mediastinum: There is no cardiomegaly. Bones/joints: No acute osseous abnormality. Postop changes in the right shoulder. XR/XR chest 1V portable [id number] IMPRESSION: Left lower lobe atelectasis.
--- NOTE | 2024-01-03 17:28 | ECG_ITS ---
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 Measurements Intervals [place] Rate: 92 P: 76 SD: 155 QRS: 58 QRSD: 103 T: 75 QT: 349 QTc: 433 Interpretive Statements SINUS RHYTHM LOW QRS VOLTAGE IN PRECORDIAL LEADS [QRS DEFLECTION < 1.0 mV IN CHEST LEADS] Compared to ECG 05/11/2023 01:18:35 Low QRS voltage now present Sinus tachycardia no longer present Electronically Signed On 01-04-2024 20:58:46 CDT by Terry Gutierres M.D. [email or web address]
--- NOTE | 2024-01-03 17:37 | W.ED.CHESTPA ---
Documented by User: Porfirio Guidry DO 01/04/24 06:34 HPI - Chest Pain General: Chief Complaint: Chest Pain Stated Complaint: cp Time Seen by Provider: 01/03/24 17:28 History of Present Illness: 68-year-old female presents to the emergency room complaining of chest pain radiating to her back. She has not had pain like this before it began suddenly while she was just sitting knitting. She has no known history of coronary disease no previous cardiac screeming or angiograms, per her report however according to her old history it states that she has previously had an NSTEMI. 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 Bynum according to the report the coronary arteries are normal. She did try taking some [place] when it first occurred she said it did not make any significant changes. She still has the discomfort is worsened during exam with deep inspiration by palpitation. She denies any recent fever sweats chills cough or shortness of breath no other symptoms. Exacerbating factors: inspiration Associated symptoms: Deny abdominal pain, dyspnea or fever(s) Related Data Home Medications Medication Instructions Recorded Confirmed calcium carbonate 600 mg PO BID@,08/20/19 01/02/24 melatonin 10 mg tablet 20 mg PO BEDTIME@04/24/23 01/02/24 albuterol sulfate 2.5 mg/3 mL 2.5 mg inhalation Q4H 05/10/23 01/02/24 (0.083 %) solution for nebulization amino acids-protein hydrolysate 15 See Rx Instructions .Route .COMPLEX 05/10/23 01/02/24 gram-101 kcal/30 mL oral liquid bisacodyl 10 mg rectal suppository 10 mg WA DAILY PRN Constipation 05/10/23 01/02/24 (Dulcolax (bisacodyl)) magnesium hydroxide 400 mg/5 mL 30 ml PO DAILY PRN Constipation 05/10/23 01/02/24 oral suspension (Milk of Magnesia) multivitamin 1 tab PO DAILY@07 05/10/23 01/02/24 sodium phosphates 19 gram-7 118 ml WA DAILY PRN Constipation 05/10/23 01/02/24 gram/118 mL enema (Fleet Enema) Previous Rx's Medication Instructions Recorded incontinence underwear #90 ea 01/16/23 atorvastatin 40 mg tablet 40 mg PO BEDTIME@17 #90 tabs 09/19/23 metoprolol tartrate 25 mg tablet 25 mg PO BID@ #180 tabs 09/19/23 omeprazole 40 mg capsule,delayed See Rx Instructions .Route 10/21/23 release .COMPLEX #90 caps pregabalin 75 mg capsule (Lyrica) 75 mg PO BID@, 30 days #60 caps 11/14/23 amitriptyline 50 mg tablet 50 mg PO .each evening #30 tabs 12/17/23 aripiprazole 2 mg tablet 2 mg PO .q am #30 tabs 12/17/23 duloxetine 60 mg capsule,delayed 120 mg (2 x 60 mg) PO .q am #60 12/17/23 release caps ketorolac 10 mg tablet 10 mg PO TID PRN pain #7 tabs 01/03/24 Allergies Allergy/AdvReac Type Severity Reaction Status Date / Time morphine AdvReac Mild ADR-Abdominal Verified 01/02/24 12:57 pain Review of Systems Const: Denies: fever(s) or chills Card: Reports: chest pain Resp: Denies: dyspnea GI: Denies: abdominal pain : Denies: dysuria, urinary frequency or urinary urgency Musc: Denies: neck pain or back pain Skin/Breast: Denies: rash PFSH ED PFSH: Medical History Poor dentition Arthritis of right hip PAD (peripheral artery disease) Obesity, Class II, BMI 35-39.9 TREMAINE (obstructive sleep apnea) GERD (gastroesophageal reflux disease) Facet arthritis, degenerative, lumbar spine Major depressive disorder, recurrent, moderate Left leg DVT Peripheral neuropathy Hypertension Hyperlipidemia Prediabetes Hx of non-ST elevation myocardial infarction (NSTEMI) Chronic migraine Tachycardia Surgical History Previous back surgery L4-L5 H/O rotator cuff surgery Right H/O section x2 Family History Father Dementia Stroke Social History Smoking and tobacco/nicotine status: unknown if used tobacco/nicotine Second hand smoke exposure: No Alcohol intake: current Alcohol intake frequency: holidays/special occasions only Substance/Drug Use: never Do you think of yourself as: Straight/Heterosexual Current gender identity: Female Female Reproductive History: Spontaneous abortions: No Physical Exam Const: COMMON NORMALS: no acute distress GENERAL APPEARANCE: cooperative and comfortable ORIENTATION/CONSCIOUSNESS: Yes awake, Yes oriented to person, Yes oriented to place and Yes oriented to time HENMT: COMMON NORMALS: normocephalic, atraumatic and hearing grossly normal bilaterally HEAD & SCALP: normocephalic and atraumatic Resp: COMMON NORMALS: normal respiratory effort, No retractions, No use of accessory muscles and clear to auscultation bilaterally AUSCULTATION: clear to auscultation bilaterally Cardio: COMMON NORMALS: regular rate, regular rhythm and No murmurs present (Cardio) RATE: regular rate RHYTHM: regular rhythm GI: COMMON NORMALS: Soft to palpation and No hepatosplenomegaly present AUSCULTATION: Yes normoactive bowel sounds PALPATION: Yes Soft to palpation, No Tenderness to palpation present (GI), No Guarding due to palpation present (GI) and Yes No hepatosplenomegaly present Extremity: COMMON NORMALS: normal to inspection, capillary refill normal, no clubbing, cyanosis or edema, no calf tenderness and no pedal edema Neuro: SENSORIUM/ORIENTATION: Yes oriented to person, Yes oriented to place and Yes oriented to time Skin: COMMON NORMALS: no rashes or lesions noted GENERAL SKIN EXAM: no rashes or lesions noted Course Vital Signs: Vital signs: Vital Signs Temperature 97.8 F 01/03/24 17:28 Pulse Rate 83 01/03/24 23:15 Respiratory Rate 13 01/03/24 23:15 Blood Pressure 136/78 01/03/24 23:20 Pulse Oximetry 94 01/03/24 23:10 Oxygen Delivery Me thod Room Air 01/03/24 19:12 MDM - Chest Pain Medical Decision Making Care signed out to Dr. Levi at change of shift. See final notes for diagnosis and disposition. Lab Data 01/03/24 19:05 01/03/24 18:26 Radiology Impressions Chest X-Ray 01/03/24 17:28 IMPRESSION: Left lower lobe atelectasis. Chest CTA 01/03/24 18:36 IMPRESSION: 1. No evidence of pulmonary embolism. 2. No acute findings in the chest. Laboratory Results WBC 11.38 10^3/uL (3.29-11.43) 01/03/24 19:05 Corrected WBC Cancelled 01/03/24 18:26 RBC 4.56 10^6/uL (3.85-5.65) 01/03/24 19:05 Hgb 12.40 g/dL (11.27-16.99) 01/03/24 19:05 Hct 38.0 % (36-47) 01/03/24 19:05 MCV 83.3 fl (85-98) L 01/03/24 19:05 MCH 27.2 pg (27-33) 01/03/24 19:05 MCHC 32.6 g/dL (30-55) 01/03/24 19:05 RDW 15.5 % (12.1-15.1) H 01/03/24 19:05 Plt Count 315 10^3/cmm (157-399) 01/03/24 19:05 MPV 9.2 fL (7.4-10.4) 01/03/24 19:05 Gran % Cancelled 01/03/24 18:26 Neut % (Auto) 75.3 % 01/03/24 19:05 Lymph % (Auto) 18.5 % 01/03/24 19:05 Butler % (Auto) 4.7 % 01/03/24 19:05 Eos % (Auto) 0.8 % 01/03/24 19:05 Baso % (Auto) 0.4 % 01/03/24 19:05 Neut # (Auto) 8.58 10^3/uL (1.8-7.7) H 01/03/24 19:05 Lymph # (Auto) 2.1 10^3/uL (0.8-4.8) 01/03/24 19:05 Butler # (Auto) 0.5 10^3/uL (0.2-0.9) 01/03/24 19:05 Eos # (Auto) 0.1 10^3/uL (0.0-0.8) 01/03/24 19:05 Baso # (Auto) 0.0 10^3/uL (0.0-0.1) 01/03/24 19:05 Absolute Gran (auto) Cancelled 01/03/24 18:26 Nucleated RBC % (auto) 0 % 01/03/24 19:05 Nucleated RBCs # 0.0 /100WBC 01/03/24 19:05 Sodium 135 mmol/L (136-145) L 01/03/24 18:26 Potassium 4.2 mmol/L (3.5-5.1) 01/03/24 18:26 Chloride 99 mmol/L (98-107) 01/03/24 18:26 Carbon Dioxide 25 mmol/L (22-29) 01/03/24 18:26 Anion Gap 15.2 (5-19) 01/03/24 18:26 BUN 13 mg/dL (8-23) 01/03/24 18:26 Creatinine 0.7 mg/dL (0.5-0.9) 01/03/24 18:26 GFR Calculation 82.7 mL/min (90-130) L 01/03/24 18:26 Glucose 123 mg/dL (65-115) H 01/03/24 18:26 Calculated Osmolality 281 mOsm/kg (285-295) L 01/03/24 18:26 Calcium 8.7 mg/dL (8.5-10.5) 01/03/24 18:26 Total Bilirubin 0.2 mg/dL (0.15-1.2) 01/03/24 18:26 AST 14 U/L (0-32) 01/03/24 18:26 ALT 13 U/L (0-33) 01/03/24 18:26 Alkaline Phosphatase 136 U/L (35-105) H 01/03/24 18:26 Troponin T Baseline 8 ng/L (0-10) 01/03/24 18:26 Troponin T 120 Minute 9.33 ng/L (0-10) 01/03/24 21:12 Delta Troponin T 1.33 ABS# (0-10) 01/03/24 21:12 NT-Pro-B Natriuret Pep 588 pg/mL (0-125) H 01/03/24 18:26 Total Protein 6.2 g/dL (6.6-8.7) L 01/03/24 18:26 Albumin 4.0 g/dL (3.5-5.2) 01/03/24 18:26 Globulin 2.2 g/dL (1.3-4.6) 01/03/24 18:26 Discharge Plan Discharge Patient Disposition: Home Clinical Impression: Atypical chest pain Condition: Stable Prescriptions: New ketorolac 10 mg tablet 10 mg PO TID PRN (Reason: pain) Qty: 7 0RF No Action calcium carbonate 600 mg calcium (1,500 mg) tablet 600 mg PO BID@,17 metoprolol tartrate 25 mg tablet 25 mg PO BID@,18 Qty: 180 1RF atorvastatin 40 mg tablet 40 mg PO BEDTIME@17 Qty: 90 1RF (DME) incontinence underwear See Rx Instructions .Route .MEDSUPPLY Qty: 90 2RF Rx Instructions: As directed omeprazole 40 mg capsule,delayed release(DR/EC) See Rx Instructions .ROUTE .COMPLEX Qty: 90 0RF Dose Instruction: TAKE ONE CAPSULE (40 MG) BY MOUTH DAILY AT 7AM Rx Instructions: TAKE ONE CAPSULE (40 MG) BY MOUTH DAILY AT 7AM Lyrica 75 mg capsule 75 mg PO BID@,17 30 Days Qty: 60 1RF amitriptyline 50 mg tablet 50 mg PO .each evening Qty: 30 0RF Rx Instructions: Take one tablet by mouth daily in the evening aripiprazole 2 mg tablet 2 mg PO .q am Qty: 30 0RF Rx Instructions: Take one tablet every morning duloxetine 60 mg capsule,delayed release(DR/EC) 120 mg PO .q am Qty: 60 0RF Rx Instructions: Take two capsules by mouth every morning melatonin 10 mg Tablet 20 mg PO BEDTIME@17 multivitamin Tablet 1 tab PO DAILY@07 albuterol sulfate 2.5 mg /3 mL (0.083 %) Solution For Nebulization 2.5 mg inhalation Q4H Rx Instructions: until 05/15/2023 while awake Milk of Magnesia 400 mg/5 mL Suspension 30 ml PO DAILY PRN (Reason: Constipation) Dulcolax (bisacodyl) 10 mg Suppository 10 mg WA DAILY PRN (Reason: Constipation) Fleet Enema 19-7 gram/118 mL Enema 118 ml WA DAILY PRN (Reason: Constipation) amino acids-protein hydrolys 15-101 gram-kcal/30 mL Liquid See Rx Instructions .ROUTE .COMPLEX Rx Instructions: 30ml po bid@,18 Discharge Orders: Discharge ED (Routine); Ordered 01/03/24 Ordered By: Armand Levi Referrals: Gino Recio MD [Primary Care Provider] - 1-3 days Patient Instructions: Opioid Safety, Pain Management Activity Restrictions/Additional Instructions: You may take medication as needed for pain. Return for worsening pain despite treatment, shortness of breath, development of cough or fever, any other concerning symptoms. See your doctor this week, they may wish to see you or perform more testing Coding Level of Care Code ED Field Support Technician for Chg Fwd Documented by User: Armand Levi DO 01/03/24 23:47 HPI - Chest Pain General: Chief Complaint: Chest Pain Stated Complaint: cp Time Seen by Provider: 01/03/24 17:28 Related Data Home Medications Medication Instructions Recorded Confirmed calcium carbonate 600 mg PO BID@08,08/20/19 01/02/24 melatonin 10 mg tablet 20 mg PO BEDTIME@17 04/24/23 01/02/24 albuterol sulfate 2.5 mg/3 mL 2.5 mg inhalation Q4H 05/10/23 01/02/24 (0.083 %) solution for nebulization amino acids-protein hydrolysate 15 See Rx Instructions .Route .COMPLEX 05/10/23 01/02/24 gram-101 kcal/30 mL oral liquid bisacodyl 10 mg rectal suppository 10 mg WA DAILY PRN Constipation 05/10/23 01/02/24 (Dulcolax (bisacodyl)) magnesium hydroxide 400 mg/5 mL 30 ml PO DAILY PRN Constipation 05/10/23 01/02/24 oral suspension (Milk of Magnesia) multivitamin 1 tab PO DAILY@07 05/10/23 01/02/24 sodium phosphates 19 gram-7 118 ml WA DAILY PRN Constipation 05/10/23 01/02/24 gram/118 mL enema (Fleet Enema) Previous Rx's Medication Instructions Recorded incontinence underwear #90 ea 01/16/23 atorvastatin 40 mg tablet 40 mg PO BEDTIME@17 #90 tabs 09/19/23 metoprolol tartrate 25 mg tablet 25 mg PO BID@,18 #180 tabs 09/19/23 omeprazole 40 mg capsule,delayed See Rx Instructions .Route 10/21/23 release .COMPLEX #90 caps pregabalin 75 mg capsule (Lyrica) 75 mg PO BID@,17 30 days #60 caps 11/14/23 amitriptyline 50 mg tablet 50 mg PO .each evening #30 tabs 12/17/23 aripiprazole 2 mg tablet 2 mg PO .q am #30 tabs 12/17/23 duloxetine 60 mg capsule,delayed 120 mg (2 x 60 mg) PO .q am #60 12/17/23 release caps ketorolac 10 mg tablet 10 mg PO TID PRN pain #7 tabs 01/03/24 Allergies Allergy/AdvReac Type Severity Reaction Status Date / Time morphine AdvReac Mild ADR-Abdominal Verified 01/02/24 12:57 pain PFSH ED PFSH: Medical History Poor dentition Arthritis of right hip PAD (peripheral artery disease) Obesity, Class II, BMI 35-39.9 TREMAINE (obstructive sleep apnea) GERD (gastroesophageal reflux disease) Facet arthritis, degenerative, lumbar spine Major depressive disorder, recurrent, moderate Left leg DVT Peripheral neuropathy Hypertension Hyperlipidemia Prediabetes Hx of non-ST elevation myocardial infarction (NSTEMI) Chronic migraine Tachycardia Surgical History Previous back surgery L4-L5 H/O rotator cuff surgery Right H/O section x2 Family History Father Dementia Stroke Social History Smoking and tobacco/nicotine status: unknown if used tobacco/nicotine Second hand smoke exposure: No Alcohol intake: current Alcohol intake frequency: holidays/special occasions only Substance/Drug Use: never Do you think of yourself as: Straight/Heterosexual Current gender identity: Female Course Vital Signs: Vital signs: Vital Signs Temperature 97.8 F 01/03/24 17:28 Pulse Rate 83 01/03/24 23:15 Respiratory Rate 13 01/03/24 23:15 Blood Pressure 136/78 01/03/24 23:20 Pulse Oximetry 94 01/03/24 23:10 Oxygen Delivery Me thod Room Air 01/03/24 19:12 MDM - Chest Pain Medical Decision Making Care signed out to Dr. Levi at change of shift. See final notes for diagnosis and disposition. 68-year-old female checked out to me at shift change. This lady has reproducible upper back and chest pain. Pain is reproducible by palpation of the thoracic spine, mainly just right of the midline. It worsens with deep breathing she says. Chest x-ray shows lower lobe atelectasis. CBC is normal. Her vitals have been good. BMP is not remarkable. First troponin is 8 with a 2-hour delta troponin of 1. CTA of the chest, performed due to pain that radiates into the back is negative for pulmonary embolism or dissection. There is no infiltrate. With reproducible pain, and the above findings, should be allowed discharge. She is told to return for any worsening of the pain, or change in the pain. Outpatient follow-up. Lab Data 01/03/24 19:05 01/03/24 18:26 Radiology Impressions Chest X-Ray 01/03/24 17:28 IMPRESSION: Left lower lobe atelectasis. Chest CTA 01/03/24 18:36 IMPRESSION: 1. No evidence of pulmonary embolism. 2. No acute findings in the chest. Laboratory Results WBC 11.38 10^3/uL (3.29-11.43) 01/03/24 19:05 Corrected WBC Cancelled 01/03/24 18:26 RBC 4.56 10^6/uL (3.85-5.65) 01/03/24 19:05 Hgb 12.40 g/dL (11.27-16.99) 01/03/24 19:05 Hct 38.0 % (36-47) 01/03/24 19:05 MCV 83.3 fl (85-98) L 01/03/24 19:05 MCH 27.2 pg (27-33) 01/03/24 19:05 MCHC 32.6 g/dL (30-55) 01/03/24 19:05 RDW 15.5 % (12.1-15.1) H 01/03/24 19:05 Plt Count 315 10^3/cmm (157-399) 01/03/24 19:05 MPV 9.2 fL (7.4-10.4) 01/03/24 19:05 Gran % Cancelled 01/03/24 18:26 Neut % (Auto) 75.3 % 01/03/24 19:05 Lymph % (Auto) 18.5 % 01/03/24 19:05 Butler % (Auto) 4.7 % 01/03/24 19:05 Eos % (Auto) 0.8 % 01/03/24 19:05 Baso % (Auto) 0.4 % 01/03/24 19:05 Neut # (Auto) 8.58 10^3/uL (1.8-7.7) H 01/03/24 19:05 Lymph # (Auto) 2.1 10^3/uL (0.8-4.8) 01/03/24 19:05 Butler # (Auto) 0.5 10^3/uL (0.2-0.9) 01/03/24 19:05 Eos # (Auto) 0.1 10^3/uL (0.0-0.8) 01/03/24 19:05 Baso # (Auto) 0.0 10^3/uL (0.0-0.1) 01/03/24 19:05 Absolute Gran (auto) Cancelled 01/03/24 18:26 Nucleated RBC % (auto) 0 % 01/03/24 19:05 Nucleated RBCs # 0.0 /100WBC 01/03/24 19:05 Sodium 135 mmol/L (136-145) L 01/03/24 18:26 Potassium 4.2 mmol/L (3.5-5.1) 01/03/24 18:26 Chloride 99 mmol/L (98-107) 01/03/24 18:26 Carbon Dioxide 25 mmol/L (22-29) 01/03/24 18:26 Anion Gap 15.2 (5-19) 01/03/24 18:26 BUN 13 mg/dL (8-23) 01/03/24 18:26 Creatinine 0.7 mg/dL (0.5-0.9) 01/03/24 18:26 GFR Calculation 82.7 mL/min (90-130) L 01/03/24 18:26 Glucose 123 mg/dL (65-115) H 01/03/24 18:26 Calculated Osmolality 281 mOsm/kg (285-295) L 01/03/24 18:26 Calcium 8.7 mg/dL (8.5-10.5) 01/03/24 18:26 Total Bilirubin 0.2 mg/dL (0.15-1.2) 01/03/24 18:26 AST 14 U/L (0-32) 01/03/24 18:26 ALT 13 U/L (0-33) 01/03/24 18:26 Alkaline Phosphatase 136 U/L (35-105) H 01/03/24 18:26 Troponin T Baseline 8 ng/L (0-10) 01/03/24 18:26 Troponin T 120 Minute 9.33 ng/L (0-10) 01/03/24 21:12 Delta Troponin T 1.33 ABS# (0-10) 01/03/24 21:12 NT-Pro-B Natriuret Pep 588 pg/mL (0-125) H 01/03/24 18:26 Total Protein 6.2 g/dL (6.6-8.7) L 01/03/24 18:26 Albumin 4.0 g/dL (3.5-5.2) 01/03/24 18:26 Globulin 2.2 g/dL (1.3-4.6) 01/03/24 18:26 All radiology interpretation(s) finalized by discharge Discharge Plan Discharge Patient Disposition: Home Clinical Impression: Atypical chest pain Condition: Stable Prescriptions: New ketorolac 10 mg tablet 10 mg PO TID PRN (Reason: pain) Qty: 7 0RF No Action calcium carbonate 600 mg calcium (1,500 mg) tablet 600 mg PO BID@08, metoprolol tartrate 25 mg tablet 25 mg PO BID@08,18 Qty: 180 1RF atorvastatin 40 mg tablet 40 mg PO BEDTIME@17 Qty: 90 1RF (DME) incontinence underwear See Rx Instructions .Route .MEDSUPPLY Qty: 90 2RF Rx Instructions: As directed omeprazole 40 mg capsule,delayed release(DR/EC) See Rx Instructions .ROUTE .COMPLEX Qty: 90 0RF Dose Instruction: TAKE ONE CAPSULE (40 MG) BY MOUTH DAILY AT 7AM Rx Instructions: TAKE ONE CAPSULE (40 MG) BY MOUTH DAILY AT 7AM Lyrica 75 mg capsule 75 mg PO BID@09,17 30 Days Qty: 60 1RF amitriptyline 50 mg tablet 50 mg PO .each evening Qty: 30 0RF Rx Instructions: Take one tablet by mouth daily in the evening aripiprazole 2 mg tablet 2 mg PO .q am Qty: 30 0RF Rx Instructions: Take one tablet every morning duloxetine 60 mg capsule,delayed release(DR/EC) 120 mg PO .q am Qty: 60 0RF Rx Instructions: Take two capsules by mouth every morning melatonin 10 mg Tablet 20 mg PO BEDTIME@17 multivitamin Tablet 1 tab PO DAILY@07 albuterol sulfate 2.5 mg /3 mL (0.083 %) Solution For Nebulization 2.5 mg inhalation Q4H Rx Instructions: until 05/15/2023 while awake Milk of Magnesia 400 mg/5 mL Suspension 30 ml PO DAILY PRN (Reason: Constipation) Dulcolax (bisacodyl) 10 mg Suppository 10 mg WA DAILY PRN (Reason: Constipation) Fleet Enema 19-7 gram/118 mL Enema 118 ml WA DAILY PRN (Reason: Constipation) amino acids-protein hydrolys 15-101 gram-kcal/30 mL Liquid See Rx Instructions .ROUTE .COMPLEX Rx Instructions: 30ml po bid@08,18 Discharge Orders: Discharge ED (Routine); Ordered 01/03/24 Ordered By: Armand Levi Referrals: Gino Recio MD [Primary Care Provider] - 1-3 days Patient Instructions: Opioid Safety, Pain Management Activity Restrictions/Additional Instructions: You may take medication as needed for pain. Return for worsening pain despite treatment, shortness of breath, development of cough or fever, any other concerning symptoms. See your doctor this week, they may wish to see you or perform more testing Coding Level of Care Code ED Field Support Technician for Major Strange
--- NOTE | 2024-01-03 18:36 | CTR_ITS ---
PROCEDURE INFORMATION: Exam: CTA Chest With Contrast Exam date and time: 01/03/2024 7:39 PM Age: 68 years old Clinical indication: Patient HX: C/O chest pain radiating to left upper back. History of dvt. ; Additional info: Chest pain history of dvt TECHNIQUE: Imaging protocol: Computed tomographic angiography of the chest with contrast. Exam focused on the arteries. 3D rendering (Not supervised by radiologist): MIP and/or 3D reconstructed images were created by the technologist. Radiation optimization: All CT scans at this facility use at least one of these dose optimization techniques: automated exposure control; mA and/or kV adjustment per patient size (includes targeted exams where dose is matched to clinical indication); or iterative reconstruction. Contrast material: OMNI 350; Contrast volume: 66 ml; Contrast route: INTRAVENOUS (IV); COMPARISON: CT angio chest PE protcl [id number] 05/10/2023 7:51 PM RADIATION DOSE METRICS: Total DLP (mGy-cm): 367.77 FINDINGS: Pulmonary arteries: Normal. No pulmonary emboli. Aorta: Mild atherosclerotic aortic calcifications. No aortic aneurysm. Lungs: Scattered hypoventilatory changes throughout the lungs. No focal consolidation. Subsegmental atelectasis in the lingula. Pleural spaces: Unremarkable. No pneumothorax. No pleural effusion. Heart: Unremarkable. No cardiomegaly. No pericardial effusion. Lymph nodes: Unremarkable. No enlarged lymph nodes. Diaphragm: Small sliding hiatal hernia. Bones/joints: Degenerative changes of the thoracic spine. No acute fracture. Soft tissues: Unremarkable. CT/CT angio chest PE protcl [id number] IMPRESSION: 1. No evidence of pulmonary embolism. 2. No acute findings in the chest.
[2024-01-03 18:49] LABS: Troponin(5th) Baseline 8 ng/L (0-10)
[2024-01-03 18:50] LABS: Alanine Aminotransferase 13 U/L (0-33); Alkaline Phosphatase 136 U/L (35-105); Anion Gap 15.2 (5-19); Aspartate Amino Transferase 14 U/L (0-32); Blood Urea Nitrogen 13 mg/dL (8-23); Calcium 8.7 mg/dL (8.5-10.5); Carbon Dioxide 25 mmol/L (22-29); Chloride 99 mmol/L (98-107); Creatinine Clr Calc Pharmacy 62.9869; Globulin 2.2 g/dL (1.3-4.6); Glomerular Filtration Rate 82.7 mL/min (90-130); Glucose 123 mg/dL (65-115); Osmolality Calculated 281 mOsm/kg (285-295); Potassium 4.2 mmol/L (3.5-5.1); Sodium 135 mmol/L (136-145); Total Bilirubin 0.2 mg/dL (0.15-1.2); Total Protein 6.2 g/dL (6.6-8.7)
[2024-01-03 19:13] LABS: Basophils % 0.4 %; Eosinophils # 0.1 10^3/uL (0.0-0.8); Eosinophils % 0.8 %; Lymphocytes # 2.1 10^3/uL (0.8-4.8); Lymphocytes % 18.5 %; Mean Corpuscular HGB Conc 32.6 g/dL (30-55); Mean Corpuscular Hemoglobin 27.2 pg (27-33); Mean Corpuscular Volume 83.3 fl (85-98); Mean Platelet Volume 9.2 fL (7.4-10.4); Monocytes # 0.5 10^3/uL (0.2-0.9); Monocytes % 4.7 %; Neutrophils # 8.58 10^3/uL (1.8-7.7); Neutrophils % 75.3 %; Nucleated Red Blood Cells % 0 %; Platelet Count 315 10^3/cmm (157-399); Red Blood Count 4.56 10^6/uL (3.85-5.65); Red Cell Distribution Width 15.5 % (12.1-15.1); White Blood Count 11.38 10^3/uL (3.29-11.43)
--- NOTE | 2024-01-03 19:28 | ECG_ITS ---
[facility] Test Date: 2024-01-03 Pat Name: [place] Department: Room: Gender: Female Director Of Purchasing: : 1955 Requested By: Porfirio Ugalde Order Number: [id number] Venancio MD: Terry Gutierres M.D. Measurements Intervals [place] Rate: 83 P: 52 NH: 151 QRS: 28 QRSD: 87 T: 53 QT: 360 QTc: 425 Interpretive Statements SINUS RHYTHM Compared to ECG 01/03/2024 17:26:11 No significant changes Electronically Signed On 01-04-2024 21:16:51 CDT by Terry Gutierres M.D. [email or web address] [id number]
[2024-01-03 19:32] LABS: NT Pro B Type Natriuretic Pept 588 pg/mL (0-125)
[2024-01-03] MEDS: iohexol 350 mg/mL 500 mL Btl (per mL) IV (19:42)
[2024-01-03 21:45] LABS: Troponin 5 2HR 9.33 ng/L (0-10); Troponin 5 2HR Delta 1.33 ABS# (0-10)
== END 2024-01-03 23:26 | disposition home or self-care (01) ==
PROVIDERS: Family Medicine; Emergency Provider Emergency Medicine; PCP Family Medicine
DX: R07.89 Other chest pain (principal); I10 Essential (primary) hypertension; E78.5 Hyperlipidemia, unspecified; I25.2 Old myocardial infarction
CPT/HCPCS: 36415; 71045; 71275; 80053; 83880; 84484; 85025; 93005; 99285

== ENCOUNTER → 2024-03-09 09:16 | Outpatient (BNVA) | payer MEDICARE, OTHER, SELFPAY | PROVIDERS: PCP Family Medicine; Visit Provider Nurse Practitioner Psychiatric/Mental Health | DX: Z79.899 Other long term (current) drug therapy (principal) | CPT/HCPCS: 80061; 83036 ==

== ENCOUNTER → 2024-03-13 12:35 | Outpatient (BNVA) | payer MEDICARE, MEDICAID, SELFPAY | PROVIDERS: PCP Family Medicine; Visit Provider Podiatrist Foot & Ankle Surgery | DX: B35.1 Tinea unguium (principal); I73.9 Peripheral vascular disease, unspecified | CPT/HCPCS: 11721 ==

== ENCOUNTER 2024-04-08 14:33 | Emergency (ER) | payer MEDICARE, MEDICAID, SELFPAY ==
[2024-04-08 15:23] VITALS: BP 111/75; PULSE 95; RESP 16; TEMP 36.9; O2SAT 93; BMI 35.3
--- NOTE | 2024-04-08 15:51 | XRR_ITS ---
PROCEDURE INFORMATION: Exam: XR Chest Exam date and time: 04/08/2024 3:59 PM Age: 68 years old Clinical indication: Fever and shortness of breath; Additional info: Fever, SOB TECHNIQUE: Imaging protocol: Radiologic exam of the chest. Views: 1 view. COMPARISON: CT angio chest PE protcl [id number] 01/03/2024 7:39 PM FINDINGS: Lungs: No focal consolidation. Focal patchy consolidation at the left lower lobe likely representing atelectasis. Pleural spaces: No pleural effusion no pneumothorax. Heart/Mediastinum: Unremarkable. No cardiomegaly. Bones/joints: Mild degenerative change of the thoracic spine. Soft tissues: Surgical clips within the left axilla. XR/XR chest 1V portable [id number] IMPRESSION: No acute cardiopulmonary abnormality.
[2024-04-08 16:39] LABS: Basophils # 0.1 10^3/uL (0.0-0.1); Basophils % 0.9 %; Eosinophils # 0.2 10^3/uL (0.0-0.8); Eosinophils % 2.2 %; Hematocrit 47.2 % (36-47); Lymphocytes # 2.8 10^3/uL (0.8-4.8); Lymphocytes % 34.2 %; Mean Corpuscular HGB Conc 31.8 g/dL (30-55); Mean Corpuscular Hemoglobin 27.5 pg (27-33); Mean Corpuscular Volume 86.6 fl (85-98); Mean Platelet Volume 8.9 fL (7.4-10.4); Monocytes # 0.5 10^3/uL (0.2-0.9); Monocytes % 5.8 %; Neutrophils # 4.56 10^3/uL (1.8-7.7); Neutrophils % 56.7 %; Nucleated Red Blood Cells % 0 %; Platelet Count 333 10^3/cmm (157-399); Red Blood Count 5.45 10^6/uL (3.85-5.65); Red Cell Distribution Width 13.5 % (12.1-15.1); White Blood Count 8.05 10^3/uL (3.29-11.43)
--- NOTE | 2024-04-08 16:49 | W.ED.FEVER ---
HPI - Fever General: Chief Complaint: Fever Stated Complaint: Fever Time Seen by Provider: 04/08/24 15:47 Source: patient Mode of arrival: ambulatory Limitations: no limitations History of Present Illness: This patient is a 68-year-old female with no pertinent past medical history who reports to the emergency department with COVID-like symptoms for the past 24 hours. States she had COVID couple years ago, this feels identical. Her symptoms are some shortness of breath, overall weakness, headache, cough, and decreased appetite. States she lives at home alone, unknown of any sick contact exposure. Does not require oxygen at home. Denies history of COPD, asthma, heart attacks or strokes. She states that she had a fever yesterday, took Tylenol and has not had a fever since. Her vitals are stable at this time. MD elicited complaint: other (Upper respiratory symptoms) Onset (ago): day(s) (1) Context: other (Feels similar to previous COVID infection) Associated symptoms: Reports headache(s); Deny abdominal pain, flank pain, chills, chest pain, diarrhea, dysuria, nausea or vomiting Treatments prior to arrival fever: acetaminophen Related Data Home Medications Medication Instructions Recorded Confirmed calcium carbonate 600 mg PO BID@08,17 08/20/19 03/13/24 melatonin 10 mg tablet 20 mg PO BEDTIME@17 04/24/23 03/13/24 amino acids-protein hydrolysate 15 See Rx Instructions .Route .COMPLEX 05/10/23 03/13/24 gram-101 kcal/30 mL oral liquid magnesium hydroxide 400 mg/5 mL 30 ml PO DAILY PRN Constipation 05/10/23 03/13/24 oral suspension (Milk of Magnesia) multivitamin 1 tab PO DAILY@07 05/10/23 03/13/24 sodium phosphates 19 gram-7 118 ml ID DAILY PRN Constipation 05/10/23 03/13/24 gram/118 mL enema (Fleet Enema) Previous Rx's Medication Instructions Recorded incontinence underwear #90 ea 01/16/23 ketorolac 10 mg tablet 10 mg PO TID PRN pain #7 tabs 01/03/24 duloxetine 60 mg capsule,delayed 120 mg (2 x 60 mg) PO .q am #180 02/06/24 release caps metoprolol tartrate 25 mg tablet 25 mg PO BID@08,18 #60 tabs 02/11/24 albuterol sulfate 2.5 mg/3 mL 2.5 mg (3 mL) inhalation Q4H #90 mL 03/12/24 (0.083 %) solution for nebulization amitriptyline 50 mg tablet 50 mg PO .each evening #90 tabs 03/12/24 aripiprazole 2 mg tablet 2 mg PO .q am #90 tabs 03/12/24 atorvastatin 40 mg tablet 40 mg PO BEDTIME@17 #90 tabs 03/12/24 omeprazole 40 mg capsule,delayed See Rx Instructions .Route 03/12/24 release .COMPLEX #30 caps pregabalin 75 mg capsule (Lyrica) 75 mg PO BID@,17 30 days #60 caps 03/12/24 Allergies Allergy/AdvReac Type Severity Reaction Status Date / Time morphine AdvReac Mild ADR-Abdominal Verified 04/08/24 15:28 pain Review of Systems General: Reports: 10 or more systems reviewed and unremarkable except in HPI and below Const: Reports: fever(s) and change in appetite; Denies: chills or fatigue Eyes: Denies: change in vision ENMT: Denies: throat pain, ear or mastoid pain or nasal discharge Card: Denies: chest pain, palpitations, swelling of feet/ankles or lightheadedness Resp: Reports: dyspnea and non-productive cough; Denies: productive cough or wheezing GI: Denies: abdominal pain, nausea, vomiting, diarrhea or constipation : Denies: flank pain, difficulty voiding, dysuria or urinary frequency Musc: Denies: neck pain, back pain or joint pain Skin/Breast: Denies: rash Neuro: Reports: headache(s) and weakness in extremities; Denies: numbness in extremities PFSH ED PFSH: Medical History Poor dentition Arthritis of right hip PAD (peripheral artery disease) Obesity, Class II, BMI 35-39.9 TREMAINE (obstructive sleep apnea) GERD (gastroesophageal reflux disease) Facet arthritis, degenerative, lumbar spine Major depressive disorder, recurrent, moderate Left leg DVT Peripheral neuropathy Hypertension Hyperlipidemia Prediabetes Hx of non-ST elevation myocardial infarction (NSTEMI) Chronic migraine Tachycardia Surgical History Previous back surgery L4-L5 H/O rotator cuff surgery Right H/O section x2 Family History Father Dementia Stroke Social History Smoking and tobacco/nicotine status: never used tobacco/nicotine Second hand smoke exposure: No Alcohol intake: current Alcohol intake frequency: holidays/special occasions only Substance/Drug Use: never Do you think of yourself as: Straight/Heterosexual Current gender identity: Female Female Reproductive History: Spontaneous abortions: No Physical Exam Const: COMMON NORMALS: no acute distress, patient oriented x3 and no limitations GENERAL APPEARANCE: cooperative, comfortable and well developed ORIENTATION/CONSCIOUSNESS: Yes awake, Yes oriented to person, Yes oriented to place and Yes oriented to time HENMT: COMMON NORMALS: normocephalic, atraumatic, hearing grossly normal bilaterally, moist oral mucous membranes and oropharynx normal HEAD & SCALP: normocephalic and atraumatic Eye: COMMON NORMALS: Equal, round and reactive pupils present, EOMs intact bilaterally and conjunctivae normal CONJUNCTIVA: Yes conjunctivae normal PUPIL: Yes Equal, round and reactive pupils present Neck/C-Spine: COMMON NORMALS: full ROM, supple and no JVD Resp: COMMON NORMALS: normal respiratory effort, No retractions, No use of accessory muscles and clear to auscultation bilaterally EFFORT & INSPECTION: Yes Actively coughing AUSCULTATION: clear to auscultation bilaterally Cardio: COMMON NORMALS: no JVD, regular rate, regular rhythm, No clicks present (Cardio), No murmurs present (Cardio) and No rub (Cardio) RATE: regular rate RHYTHM: regular rhythm GI: COMMON NORMALS: Normal to inspection, nondistended, normoactive bowel sounds present, Soft to palpation and non-tender AUSCULTATION: Yes normoactive bowel sounds PALPATION: Yes Soft to palpation RECTAL EXAM: deferred Extremity: COMMON NORMALS: normal to inspection, full ROM and capillary refill normal Neuro: COMMON NORMALS: patient oriented x3, moves all extremities, no focal motor deficits and no sensory deficits noted SENSORIUM/ORIENTATION: Yes oriented to person, Yes oriented to place and Yes oriented to time Psych: COMMON NORMALS: mental status grossly normal and Normal thought process present THOUGHT PROCESS: Normal thought process present Skin: COMMON NORMALS: no rashes or lesions noted GENERAL SKIN EXAM: no rashes or lesions noted Course Vital Signs: Vital signs: Vital Signs Temperature 98.4 F 04/08/24 15:23 Pulse Rate 95 04/08/24 15:23 Respiratory Rate 16 04/08/24 15:23 Blood Pressure 111/75 04/08/24 15:23 Pulse Oximetry 93 04/08/24 15:23 Oxygen Delivery Me thod Room Air 04/08/24 15:23 MDM - Fever Medical Decision Making This patient presented with upper respiratory symptoms, comparing it to prior COVID infection. No sick contact exposure. Her vitals were stable, she reported a fever yesterday but took Tylenol has not been present since. Her basic blood work was unremarkable, chest x-ray unremarkable. She could not give us a urine, respiratory panel pending at this time I do suspect a viral illness, we will have her follow-up with primary care tomorrow and return with any new or worsening. Lab Data 04/08/24 16:30 04/08/24 16:30 Laboratory Results WBC 8.05 10^3/uL (3.29-11.43) 04/08/24 16:30 RBC 5.45 10^6/uL (3.85-5.65) 04/08/24 16:30 Hgb 15.00 g/dL (11.27-16.99) 04/08/24 16:30 Hct 47.2 % (36-47) H 04/08/24 16:30 MCV 86.6 fl (85-98) 04/08/24 16:30 MCH 27.5 pg (27-33) 04/08/24 16:30 MCHC 31.8 g/dL (30-55) 04/08/24 16:30 RDW 13.5 % (12.1-15.1) 04/08/24 16:30 Plt Count 333 10^3/cmm (157-399) 04/08/24 16:30 MPV 8.9 fL (7.4-10.4) 04/08/24 16:30 Neut % (Auto) 56.7 % 04/08/24 16:30 Lymph % (Auto) 34.2 % 04/08/24 16:30 [place] % (Auto) 5.8 % 04/08/24 16:30 Eos % (Auto) 2.2 % 04/08/24 16:30 Baso % (Auto) 0.9 % 04/08/24 16:30 Neut # (Auto) 4.56 10^3/uL (1.8-7.7) 04/08/24 16:30 Lymph # (Auto) 2.8 10^3/uL (0.8-4.8) 04/08/24 16:30 [place] # (Auto) 0.5 10^3/uL (0.2-0.9) 04/08/24 16:30 Eos # (Auto) 0.2 10^3/uL (0.0-0.8) 04/08/24 16:30 Baso # (Auto) 0.1 10^3/uL (0.0-0.1) 04/08/24 16:30 Nucleated RBC % (auto) 0 % 04/08/24 16:30 Nucleated RBCs # 0.0 /100WBC 04/08/24 16:30 Sodium 137 mmol/L (136-145) 04/08/24 16:30 Potassium 4.6 mmol/L (3.5-5.1) 04/08/24 16:30 Chloride 98 mmol/L (98-107) 04/08/24 16:30 Carbon Dioxide 27 mmol/L (22-29) 04/08/24 16:30 Anion Gap 16.6 (5-19) 04/08/24 16:30 BUN 13 mg/dL (8-23) 04/08/24 16:30 Creatinine 0.8 mg/dL (0.5-0.9) 04/08/24 16:30 GFR Calculation 70.9 mL/min (90-130) L 04/08/24 16:30 Glucose 97 mg/dL (65-115) 04/08/24 16:30 Calculated Osmolality 284 mOsm/kg (285-295) L 04/08/24 16:30 Calcium 10.0 mg/dL (8.5-10.5) 04/08/24 16:30 Total Bilirubin 0.6 mg/dL (0.15-1.2) 04/08/24 16:30 AST 16 U/L (0-32) 04/08/24 16:30 ALT 13 U/L (0-33) 04/08/24 16:30 Alkaline Phosphatase 153 U/L (35-105) H 04/08/24 16:30 Total Protein 8.0 g/dL (6.6-8.7) 04/08/24 16:30 Albumin 4.4 g/dL (3.5-5.2) 04/08/24 16:30 Globulin 3.6 g/dL (1.3-4.6) 04/08/24 16:30 XR interpretation done by ED provider, pending radiology final review ED provider radiology interpretation(s): Chest x-ray demonstrating no acute cardiopulmonary findings. Discharge Plan Discharge Patient Disposition: Home Clinical Impression: Viral syndrome Condition: Stable Prescriptions: No Action calcium carbonate 600 mg calcium (1,500 mg) tablet 600 mg PO BID@ (DME) incontinence underwear See Rx Instructions .Route .MEDSUPPLY Qty: 90 2RF Rx Instructions: As directed metoprolol tartrate 25 mg tablet 25 mg PO BID@ Qty: 60 0RF Lyrica 75 mg capsule 75 mg PO BID@ 30 Days Qty: 60 1RF albuterol sulfate 2.5 mg /3 mL (0.083 %) solution for nebulization 2.5 mg inhalation Q4H Qty: 90 0RF Rx Instructions: until 05/15/2023 while awake amitriptyline 50 mg tablet 50 mg PO .each evening Qty: 90 0RF Rx Instructions: Take one tablet by mouth daily in the evening omeprazole 40 mg capsule,delayed release(DR/EC) See Rx Instructions .ROUTE .COMPLEX Qty: 30 0RF Dose Instruction: TAKE ONE CAPSULE (40 MG) BY MOUTH DAILY AT 7AM Rx Instructions: TAKE ONE CAPSULE (40 MG) BY MOUTH DAILY AT 7AM atorvastatin 40 mg tablet 40 mg PO BEDTIME@17 Qty: 90 1RF aripiprazole 2 mg tablet 2 mg PO .q am Qty: 90 0RF Rx Instructions: Take one tablet every morning duloxetine 60 mg capsule,delayed release(DR/EC) 120 mg PO .q am Qty: 180 0RF Rx Instructions: Take two capsules by mouth every morning melatonin 10 mg Tablet 20 mg PO BEDTIME@17 multivitamin Tablet 1 tab PO DAILY@07 Milk of Magnesia 400 mg/5 mL Suspension 30 ml PO DAILY PRN (Reason: Constipation) Fleet Enema 19-7 gram/118 mL Enema 118 ml ID DAILY PRN (Reason: Constipation) amino acids-protein hydrolys 15-101 gram-kcal/30 mL Liquid See Rx Instructions .ROUTE .COMPLEX Rx Instructions: 30ml po bid@08,18 ketorolac 10 mg tablet 10 mg PO TID PRN (Reason: pain) Qty: 7 0RF Discharge Orders: Discharge ED (Routine); Ordered 04/08/24 Ordered By: Ramirez Sherman Referrals: Gino Recio MD [Primary Care Provider] - Patient Instructions: Viral Syndrome (ED) Activity Restrictions/Additional Instructions: Follow-up with primary care tomorrow as discussed. Tylenol and ibuprofen at home for fevers and bodyaches. Make sure to drink plenty of fluids. Currently your respiratory panel is pending, we will call you with any abnormal results. Please return with any worsening shortness of breath, onset of chest pain, or other concerning symptoms you have. Coding Level of Care Code ED Supervisor [employer] for [facility] Strange
[2024-04-08 16:55] LABS: Alanine Aminotransferase 13 U/L (0-33); Albumin Level 4.4 g/dL (3.5-5.2); Alkaline Phosphatase 153 U/L (35-105); Anion Gap 16.6 (5-19); Aspartate Amino Transferase 16 U/L (0-32); Blood Urea Nitrogen 13 mg/dL (8-23); Carbon Dioxide 27 mmol/L (22-29); Chloride 98 mmol/L (98-107); Globulin 3.6 g/dL (1.3-4.6); Glomerular Filtration Rate 70.9 mL/min (90-130); Glucose 97 mg/dL (65-115); Osmolality Calculated 284 mOsm/kg (285-295); Potassium 4.6 mmol/L (3.5-5.1); Sodium 137 mmol/L (136-145); Total Bilirubin 0.6 mg/dL (0.15-1.2)
[2024-04-08 18:22] VITALS: BP 113/74; PULSE 91; RESP 16; O2SAT 95
[2024-04-08 18:24] LABS: Adenovirus Not Detected (NOT DETECT); Chlamydia Pneumoniae Not Detected (NOT DETECT); Coronavirus 229E,HKU1,NL63,OC4 Not Detected (NOT DETECT); Human Metapneumovirus Not Detected (NOT DETECT); Human Rhinovirus/Enterovirus Not Detected (NOT DETECT); Influenza A Not Detected (NOT DETECT); Influenza A H1 Not Detected (NOT DETECT); Influenza A H1-2009 Not Detected (NOT DETECT); Influenza A H3 Not Detected (NOT DETECT); Influenza B Not Detected (NOT DETECT); Mycoplasma Pneumoniae Not Detected (NOT DETECT); Parainfluenza Virus Type 1 Not Detected (NOT DETECT); Parainfluenza Virus Type 2 Not Detected (NOT DETECT); Parainfluenza Virus Type 3 Not Detected (NOT DETECT); Parainfluenza Virus Type 4 Not Detected (NOT DETECT); Respiratory Syncytial Virus A Not Detected (NOT DETECT); Respiratory Syncytial Virus B Not Detected (NOT DETECT); SARS-COV-2 Not Detected (NOT DETECT)
== END 2024-04-08 18:11 | disposition home or self-care (01) ==
PROVIDERS: Emergency Provider Physician Assistant; PCP Family Medicine
DX: B34.9 Viral infection, unspecified (principal); I10 Essential (primary) hypertension; E78.5 Hyperlipidemia, unspecified
CPT/HCPCS: 36415; 71045; 80053; 85025; 87486; 87581; 87633; 99284

== ENCOUNTER → 2024-04-13 12:34 | Outpatient (BNVA) | payer MEDICARE, MEDICAID, SELFPAY | PROVIDERS: PCP Family Medicine; Visit Provider Anesthesiology Pain Medicine | DX: M54.50 Low back pain, unspecified (principal); G89.29 Other chronic pain; M96.1 Postlaminectomy syndrome, not elsewhere classified; M47.816 Spondylosis without myelopathy or radiculopathy, lumbar region | CPT/HCPCS: 72120; 99214 ==

== ENCOUNTER → 2024-04-22 12:42 | Outpatient (BNVA) | payer MEDICARE, MEDICAID, SELFPAY | PROVIDERS: PCP Family Medicine; Visit Provider Anesthesiology Pain Medicine | DX: M54.16 Radiculopathy, lumbar region (principal); M54.9 Dorsalgia, unspecified; G89.29 Other chronic pain | CPT/HCPCS: 64483; 64484; J1100; J3490 ==

== ENCOUNTER → 2024-04-27 13:02 | Outpatient (BNVA) | payer MEDICARE, MEDICAID, SELFPAY | PROVIDERS: PCP Family Medicine; Visit Provider Nurse Practitioner | DX: Z96.641 Presence of right artificial hip joint (principal) | CPT/HCPCS: 73502 ==

== ENCOUNTER → 2024-05-11 13:14 | Outpatient (BNVA) | payer MEDICARE, SELFPAY | PROVIDERS: PCP Family Medicine; Visit Provider Nurse Practitioner Family | DX: M47.816 Spondylosis without myelopathy or radiculopathy, lumbar region (principal); M54.16 Radiculopathy, lumbar region; G89.29 Other chronic pain; Z87.891 Personal history of nicotine dependence | CPT/HCPCS: 99213 ==

== ENCOUNTER 2024-07-17 17:53 | Emergency (ER) | payer MEDICARE, SELFPAY ==
[2024-07-17 17:56] VITALS: BP 204/109; PULSE 122; RESP 18; TEMP 36.3; O2SAT 97; BMI 32.6
--- NOTE | 2024-07-17 18:06 | XRR_ITS ---
PROCEDURE INFORMATION: Exam: XR Chest Exam date and time: 07/17/2024 6:29 PM Age: 68 years old Clinical indication: Other: AMS; Additional info: Psych eval, AMS TECHNIQUE: Imaging protocol: Radiologic exam of the chest. Views: 1 view. COMPARISON: CR XR chest 1V portable [id number] 04/08/2024 3:59 PM FINDINGS: Lungs: Lungs are clear. Pleural spaces: There is no pleural effusion or pneumothorax. Heart/Mediastinum: Cardiomediastinal contours are unremarkable. Bones/joints: Bones are unremarkable. XR/XR chest 1V portable [id number] IMPRESSION: No acute findings.
--- NOTE | 2024-07-17 18:06 | ECG_ITS ---
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 Measurements Intervals [place] Rate: 86 P: 132 AL: 134 QRS: 24 QRSD: 86 T: 119 QT: 354 QTc: 424 Interpretive Statements Normal sinus rhythm NONSPECIFIC T-WAVE ABNORMALITY Compared to ECG 01/03/2024 19:25:37 No significant change Electronically Signed On 07-18-2024 13:02:24 CDT by Cecy España M.D. [email or web address]
--- NOTE | 2024-07-17 18:09 | ED.C_ITS ---
HPI - Psych 2 General: Chief Complaint: Psychiatric Symptoms Stated Complaint: MHE Time Seen by Provider: 07/17/24 18:05 History of Present Illness: 68-year-old female with a history of art hritis, peripheral artery disease, obstructive sleep apnea, GERD, hypertension, hyperlipidemia and history of depression and suicidal ideation in the past who presents the emergency room with depression and suicidal ideation. She has become very depressed. This been over the last 3 weeks. Now she is having suicidal thoughts. She has no energy to drive or do anything. She wants to go to bed and not wake up. She has no will to take her medications. She has been admitted for this in the past. Related Data Home Medications ?Medication ?Instructions ?Recorded ?Confirmed calcium carbonate 600 mg PO BID@08/20/19 06/05/24 melatonin 10 mg tablet 20 mg PO BEDTIME@04/24/23 06/05/24 amino acids-protein hydrolysate 15 See Rx Instructions .Route .COMPLEX 05/10/23 06/05/24 gram-101 kcal/30 mL oral liquid magnesium hydroxide 400 mg/5 mL 30 ml PO DAILY PRN Con stipation 05/10/23 06/05/24 oral suspension (Milk of Magnesia) multivitamin 1 tab PO DAILY@07 05/10/23 0 06/05/24 sodium phosphates 19 gram-7 118 ml SD DAILY PRN Consti pation 05/10/23 06/05/24 gram/118 mL enema (Fleet Enema) Previous Rx's ?Medication ?Instructions ?Recorded incontinence underwear #90 ea 01/16/23 ketorolac 10 mg tablet 10 mg PO TID PRN pain #7 tab s 01/03/24 metoprolol tartrate 25 mg tablet 25 mg PO BID@ #6 0 tabs 02/11/24 albuterol sulfate 2.5 mg/3 mL 2.5 mg (3 mL) inhalation Q4H #90 mL 03/12/24 (0.083 %) solution for nebulization amitriptyline 50 mg tablet 50 mg PO .each evening #90 tabs 03/12/24 aripiprazole 2 mg tablet 2 mg PO .q am #90 tabs 03/12 omeprazole 40 mg capsule,delayed See Rx Instructions . Route 03/12/24 release .COMPLEX #30 caps pregabalin 75 mg capsule (Lyrica) 75 mg PO BID@09,17 3 0 days #60 caps 03/12/24 duloxetine 60 mg capsule,delayed 120 mg (2 x 60 mg) PO .q am #180 05/04/24 release caps atorvastatin 40 mg tablet 40 mg PO BEDTIME@17 #90 tabs 06/05/24 Allergies Allergy/AdvReac Type Severity Reaction Status Date / Time morphine AdvReac Mild ADR-Abdominal Verified 07/17/24 18:03 pain Review of Systems 2 Narrative: Constitutional symptoms: Negative except as documented in HPI. Skin symptoms: Negative except as documented in HPI. Eye symptoms: Negative except as documented in HPI. ENMT symptoms: Negative except as documented in HPI. Respiratory symptoms: Negative except as documented in HPI. Cardiovascular symptoms: Negative except as documented in HPI. Gastrointestinal symptoms: Negative except as documented in HPI. Genitourinary symptoms: Negative except as documented in HPI. Musculoskeletal symptoms: Negative except as documented in HPI. Neurologic symptoms: Negative except as documented in HPI. Psychiatric symptoms: Negative except as documented in HPI. Endocrine symptoms: Negative except as documented in HPI. PFSH ED 2 PFSH: Medical History Poor dentition Arthritis of right hip PAD (peripheral artery disease) Obesity, Class II, BMI 35-39.9 TREMAINE (obstructive sleep apnea) GERD (gastroesophageal reflux disease) Facet arthritis, degenerative, lumbar spine Major depressive disorder, recurrent, moderate Left leg DVT Peripheral neuropathy Hypertension Hyperlipidemia Prediabetes Hx of non-ST elevation myocardial infarction (NSTEMI) Chronic migraine Tachycardia Surgical History Previous back surgery L4-L5 H/O rotator cuff surgery Right H/O section x2 Family History Father Dementia Stroke Social History Smoking and tobacco/nicotine status: former use of tobacco/nicotine Second hand smoke exposure: No Alcohol intake: current Alcohol intake frequency: holidays/special occasions only Substance/Drug Use: never Do you think of yourself as: Straight/Heterosexual Current gender identity: Female Female Reproductive History: Spontaneous abortions: No Physical Exam 2 Narrative: EXAM NARRATIVE: General: Alert. no acute distress Skin: Warm, dry Head: Normocephalic, atraumatic. Neck: Supple, trachea midline. Eye: Extraocular movements are intact. Ears, nose, mouth and throat: Oral mucosa moist. Cardiovascular: Regular rate and rhythm, Normal peripheral perfusion. Respiratory: Lungs are clear to auscultation, respirations are non-labored, breath sounds are equal, Symmetrical chest wall expansion. Gastrointestinal: Soft, Nontender, Non distended, Normal bowel sounds. Musculoskeletal: Normal ROM, no deformity. Neurological: Alert and oriented to person, place, time, and situation, No focal neurological deficit observed. Psychiatric: Cooperative, depressed, expresses suicidal ideation. Tearful Course 2 Vital Signs: Vital signs: Vital Signs Temperature 97.4 F L 07/17/24 17:56 Pulse Rate 122 H 07/17/24 17:56 Respiratory Rate 18 07/17/24 17:56 Blood Pressure 204/109 07/17/24 17:56 Pulse Oximetry 97 07/17/24 17:56 [facility] - Psych Medical Decision Making Medical decision making: Differential diagnosis for a geriatric patient with worsening dementia/behavioral problems including but not limited to and based on the above HPI, review of systems and physical exam: Concerns for infection such as UTI or pneumonia. Alcohol intoxication. Cardiac issues or other medical problems to be ruled out prior to a geriatric/psychiatric admission EKG: Time 184. Rate 86. Normal sinus rhythm, No ST-T changes, no ectopy, normal SD & QRS intervals, This was reviewed and interpreted by myself the ER physician at 1845. EKG machine read this is ectopic atrial rhythm this is not. This is a normal EKG. Just low voltage. Chest x-ray: No acute process. No infiltrate. No pneumothorax. This was reviewed and interpreted by myself the emergency room physician. I also reviewed the radiology report. Orders placed to evaluate differential diagnosis based on the above differential, HPI and physical exam Lab work, chest X-ray and ekg ordered to evaluate the pathologies and to clear the patient medically prior Lab Review: Laboratory results were reviewed and interpreted by myself the emergency room physician. - Medically cleared. - EKG shows no ischemic changes. - Blood alcohol level is negative, as well as salicylate and Tylenol. - No anemia. - BUN and creatinine are within normal limits. Assessment and plan: Depression Suicidal ideation -Transfer to geriatric neuropsychiatric facility for continued evaluation and treatment. - All lab work was reviewed and interpreted personally by myself, the ER physician - Evaluation and treatment of this problem were appropriate in the emergency setting Lab Data 07/17/24 18:35 07/17/24 18:35 Radiology Impressions Chest X-Ray 07/17/24 18:06 IMPRESSION: No acute findings. Laboratory Results WBC 8.29 10^3/uL (3.29-11.43) 07/17/24 18:35 RBC 5.88 10^6/uL (3.85-5.65) H 07/17/24 18:35 Hgb 16.20 g/dL (11.27-16.99) 07/17/24 18:35 Hct 51.1 % (36-47) H 07/17/24 18:35 MCV 86.9 fl (85-98) 07/17/24 18:35 MCH 27.6 pg (27-33) 07/17/24 18: MCHC 31.7 g/dL (30-55) 07/17/24 18:35 RDW 13.0 % (12.1-15.1) 07/17/24 18:35 Plt Count 339 10^3/cmm (157-399) 07/17/24 18:35 MPV 8.9 fL (7.4-10.4) 07/17/24 18:35 Neut % (Auto) 57.8 % 07/17/24 18:35 Lymph % (Auto) 33.4 % 07/17/24 18:35 [place] % (Auto) 6.3 % 07/17/24 18:35 Eos % (Auto) 1.6 % 07/17/24 18:35 Baso % (Auto) 0.7 % 07/17/24 18:35 Neut # (Auto) 4.79 10^3/uL (1.8-7.7) 07/17/24 18:35 Lymph # (Auto) 2.8 10^3/uL (0.8-4.8) 07/17/24 18:35 [place] # (Auto) 0.5 10^3/uL (0.2-0.9) 07/17/24 18:35 Eos # (Auto) 0.1 10^3/uL (0.0-0.8) 07/17/24 18:35 Baso # (Auto) 0.1 10^3/uL (0.0-0.1) 07/17/24 18:35 Nucleated RBC % (auto) 0 % 07/17/24 18:35 Nucleated RBCs # 0.0 /100WBC 07/17/24 18:35 Sodium 137 mmol/L (136-145) 07/17/24 18:35 Potassium 4.3 mmol/L (3.5-5.1) 07/17/24 18:35 Chloride 101 mmol/L (98-107) 07/17/24 18:35 Carbon Dioxide 18 mmol/L (22-29) L 07/17/24 18:35 Anion Gap 22.3 (5-19) H 07/17/24 18:35 BUN 10 mg/dL (8-23) 07/17/24 18:35 Creatinine 0.7 mg/dL (0.5-0.9) 07/17/24 18:35 GFR Calculation 82.7 mL/min (90-130) L 07/17/24 18:35 Glucose 117 mg/dL (65-115) H 07/17/24 18:35 Calculated Osmolality 284 mOsm/kg (285-295) L 07/17/24 18:35 Calcium 9.8 mg/dL (8.5-10.5) 07/17/24 18:35 Total Bilirubin 0.5 mg/dL (0.15-1.2) 07/17/24 18:35 AST 20 U/L (0-32) 07/17/24 18:35 ALT 18 U/L (0-33) 07/17/24 18:35 Alkaline Phosphatase 146 U/L (35-105) H 07/17/24 18:35 Total Protein 7.1 g/dL (6.6-8.7) 07/17/24 18:35 Albumin 4.4 g/dL (3.5-5.2) 07/17/24 18: Globulin 2.7 g/dL (1.3-4.6) 07/17/24 18:35 TSH 1.52 uIU/mL (0.27-4.20) 07/17/24 18:35 Salicylates 3.1 mg/dL (3-10) 07/17/24 18:35 Acetaminophen < 5.0 ug/mL (10-30) L 07/17/24 18:35 Ethyl Alcohol < 10 mg/dL (0-10) 07/17/24 18:35 Influenza A (PCR) Negative (Negative) 07/17/24 18:30 Influenza Type B (PCR) Negative (Negative) 07/17/24 18:30 RSV (PCR) Negative (Negative) 07/17/24 18:30 SARS-CoV-2 (PCR) Negative (Negative) 07/17/24 18:30 All radiology interpretation(s) finalized by discharge Discharge Plan Discharge Patient Disposition: Xfer Psychiatric Hosp Clinical Impression: Suicidal ideation Depression Qualifiers: Depression Type: major depressive disorder Major depression recurrence: r ecurrent Active/Remission status: currently active Major depression episode severity: moderate Qualified Code(s): F33.1 - Major depressive disorder, recurrent, moderate Condition: Stable Referrals: Gino Recio MD [Primary Care Provider] - Print Language: [place] Coding Level of Care Code ED Manager [employer] for [facility]
[2024-07-17 18:40] LABS: Basophils # 0.1 10^3/uL (0.0-0.1); Basophils % 0.7 %; Eosinophils # 0.1 10^3/uL (0.0-0.8); Eosinophils % 1.6 %; Hematocrit 51.1 % (36-47); Lymphocytes # 2.8 10^3/uL (0.8-4.8); Lymphocytes % 33.4 %; Mean Corpuscular HGB Conc 31.7 g/dL (30-55); Mean Corpuscular Hemoglobin 27.6 pg (27-33); Mean Corpuscular Volume 86.9 fl (85-98); Mean Platelet Volume 8.9 fL (7.4-10.4); Monocytes # 0.5 10^3/uL (0.2-0.9); Monocytes % 6.3 %; Neutrophils # 4.79 10^3/uL (1.8-7.7); Neutrophils % 57.8 %; Nucleated Red Blood Cells % 0 %; Platelet Count 339 10^3/cmm (157-399); Red Blood Count 5.88 10^6/uL (3.85-5.65); White Blood Count 8.29 10^3/uL (3.29-11.43)
[2024-07-17 18:57] LABS: Alanine Aminotransferase 18 U/L (0-33); Aspartate Amino Transferase 20 U/L (0-32); Blood Urea Nitrogen 10 mg/dL (8-23); Total Bilirubin 0.5 mg/dL (0.15-1.2)
[2024-07-17 19:16] LABS: Acetaminophen < 5.0 ug/mL (10-30); Albumin Level 4.4 g/dL (3.5-5.2); Alcohol Level < 10 mg/dL (0-10); Alkaline Phosphatase 146 U/L (35-105); Anion Gap 22.3 (5-19); Calcium 9.8 mg/dL (8.5-10.5); Carbon Dioxide 18 mmol/L (22-29); Chloride 101 mmol/L (98-107); Creatinine Clr Calc Pharmacy 62.0498; Globulin 2.7 g/dL (1.3-4.6); Glomerular Filtration Rate 82.7 mL/min (90-130); Glucose 117 mg/dL (65-115); Osmolality Calculated 284 mOsm/kg (285-295); Potassium 4.3 mmol/L (3.5-5.1); Salicylate 3.1 mg/dL (3-10); Sodium 137 mmol/L (136-145); Thyroid Stimulating Hormone 1.52 uIU/mL (0.27-4.20); Total Protein 7.1 g/dL (6.6-8.7)
[2024-07-17 19:18] LABS: Influenza A NEGATIVE (Negative); Influenza B NEGATIVE (Negative); Respiratory Syncytial Virus Ce NEGATIVE (Negative); SARS-CoV-2 PCR NEGATIVE (Negative)
[2024-07-17 21:34] LABS: Bilirubin Urine Negative (Negative); Blood Urine Negative (Negative); Glucose Urine UA Negative (Normal); Ketones Urine Trace (Negative); Leukocyte Esterase Urine 2+ (Negative); Nitrate Urine Positive (Negative); Protein Urine Trace (Negative); Specific Gravity, Urine 1.016 (1.005-1.030); Urine Appearance Cloudy (CLEAR); Urine Color Yellow (Yellow); Urobilinogen Urine 0.2 mg/dL (Negative)
[2024-07-17 21:39] LABS: Add Urine Microscopic? YES; Bacteria Urine 4+ /hpf; Hyaline Casts Urine 17.77 /lpf; RBC Urine 0-2 /hpf (0-2); Universal Test for UA Present (0); WBC Urine 21-50 /hpf (0-5)
[2024-07-17 21:42] LABS: Amphetamines Screen Urine Negative (Negative); Barbiturates Screen Urine Negative (Negative); Benzodiazepines Screen Urine Negative (Negative); Cocaine Screen Urine Negative (Negative); Opiate Screen Urine Negative (Negative); PCP Screen Urine Negative (Negative); THC Screen Urine Negative (Negative)
[2024-07-17 21:53] LABS: Add Urine Culture? No
[2024-07-18] VITALS: PULSE 98; RESP 17; O2SAT 98
[2024-07-18] MEDS: cephALEXin 500 mg Capsule PO (01:26)
[2024-07-18 03:43] VITALS: BP 145/82; PULSE 85; RESP 20; TEMP 36.7; O2SAT 96
[2024-07-18 04:00] VITALS: BP 141/78; PULSE 94; RESP 17; O2SAT 98
[2024-07-18 11:24] VITALS: BP 136/74; PULSE 82; RESP 14; O2SAT 96
[2024-07-18 12:18] VITALS: BP 148/71; PULSE 108; O2SAT 95
== END 2024-07-18 12:18 ==
PROVIDERS: Emergency Provider Emergency Medicine; PCP Family Medicine
DX: R45.851 Suicidal ideations (principal); F33.1 Major depressive disorder, recurrent, moderate; Z11.52 Encounter for screening for COVID-19; Z87.891 Personal history of nicotine dependence; E78.5 Hyperlipidemia, unspecified; I10 Essential (primary) hypertension
CPT/HCPCS: 36415; 71045; 80053; 80306; 80307; 81001; 84443; 85025; 87637; 93005; 99285; J9999

== ENCOUNTER → 2024-08-10 12:42 | Outpatient (BNVA) | payer MEDICARE, MEDICAID, SELFPAY | PROVIDERS: PCP Family Medicine; Visit Provider Nurse Practitioner Family | DX: M54.50 Low back pain, unspecified (principal); G89.29 Other chronic pain; M47.816 Spondylosis without myelopathy or radiculopathy, lumbar region; M54.16 Radiculopathy, lumbar region | CPT/HCPCS: 99214 ==

== ENCOUNTER → 2024-09-02 10:40 | Outpatient (BNVA) | payer MEDICARE, MEDICAID, SELFPAY | PROVIDERS: PCP Family Medicine; Visit Provider Anesthesiology Pain Medicine | DX: M47.816 Spondylosis without myelopathy or radiculopathy, lumbar region (principal); M54.50 Low back pain, unspecified; G89.29 Other chronic pain | CPT/HCPCS: 64493; 64494; 64495; J3490; J9999 ==

== ENCOUNTER → 2024-09-16 11:32 | Outpatient (BNVA) | payer MEDICARE, MEDICAID, SELFPAY | PROVIDERS: PCP Family Medicine; Visit Provider Nurse Practitioner Family | DX: M54.50 Low back pain, unspecified (principal); G89.29 Other chronic pain; M47.816 Spondylosis without myelopathy or radiculopathy, lumbar region; M54.16 Radiculopathy, lumbar region | CPT/HCPCS: 99214 ==

== ENCOUNTER → 2024-09-30 12:57 | Outpatient (BNVA) | payer MEDICARE, MEDICAID, SELFPAY | PROVIDERS: PCP Family Medicine; Visit Provider Anesthesiology Pain Medicine | DX: M47.816 Spondylosis without myelopathy or radiculopathy, lumbar region (principal); M54.50 Low back pain, unspecified; G89.29 Other chronic pain | CPT/HCPCS: 64493; 64494; 64495; J3490; J9999 ==

== ENCOUNTER → 2024-10-12 13:18 | Outpatient (BNVA) | payer MEDICARE, MEDICAID, SELFPAY | PROVIDERS: PCP Family Medicine; Visit Provider Podiatrist Foot & Ankle Surgery | DX: I73.9 Peripheral vascular disease, unspecified (principal); B35.1 Tinea unguium | CPT/HCPCS: 11721 ==

== ENCOUNTER → 2024-10-14 10:51 | Outpatient (BNVA) | payer MEDICARE, MEDICAID, SELFPAY | PROVIDERS: PCP Family Medicine; Visit Provider Nurse Practitioner Family | DX: M54.50 Low back pain, unspecified (principal); G89.29 Other chronic pain; M47.816 Spondylosis without myelopathy or radiculopathy, lumbar region; M54.16 Radiculopathy, lumbar region | CPT/HCPCS: 99214 ==

== ENCOUNTER → 2024-10-27 13:43 | Outpatient (BNVA) | payer MEDICARE, MEDICAID, SELFPAY | PROVIDERS: PCP Family Medicine; Visit Provider Anesthesiology Pain Medicine | DX: M47.816 Spondylosis without myelopathy or radiculopathy, lumbar region (principal); M54.9 Dorsalgia, unspecified; G89.29 Other chronic pain | CPT/HCPCS: 64635; 64636; J1100; J9999 ==

== ENCOUNTER → 2024-11-10 12:45 | Outpatient (BNVA) | payer MEDICARE, MEDICAID, SELFPAY | PROVIDERS: PCP Family Medicine; Visit Provider Anesthesiology Pain Medicine | DX: M47.816 Spondylosis without myelopathy or radiculopathy, lumbar region (principal); M54.9 Dorsalgia, unspecified; G89.29 Other chronic pain | CPT/HCPCS: 64635; 64636; J1100; J9999 ==

== ENCOUNTER → 2024-11-26 12:51 | Outpatient (BNVA) | payer MEDICARE, MEDICAID, SELFPAY | PROVIDERS: PCP Family Medicine; Visit Provider Nurse Practitioner Family | DX: M54.50 Low back pain, unspecified (principal); G89.29 Other chronic pain; M47.816 Spondylosis without myelopathy or radiculopathy, lumbar region; M54.16 Radiculopathy, lumbar region | CPT/HCPCS: 99214 ==

== ENCOUNTER → 2024-12-01 10:49 | Outpatient (BNVA) | payer MEDICARE, MEDICAID, SELFPAY | PROVIDERS: PCP Family Medicine; Visit Provider Orthopaedic Surgery | DX: M54.9 Dorsalgia, unspecified (principal); Z96.7 Presence of other bone and tendon implants; G89.29 Other chronic pain | CPT/HCPCS: 72110; 99213 ==

== ENCOUNTER 2024-12-17 15:39 | Outpatient (CLI) | payer MEDICARE, MEDICAID, SELFPAY ==
--- NOTE | 2024-12-17 15:45 | CT_ITS ---
WS: [id number] CT lumbar spine wo con* [id number] REASON FOR EXAM: Lumbar pain IV CONTRAST ADMINISTERED: None. TOTAL EXAM DLP: 718.[address] scans at [facility] use at least one of these dose optimization techniques: automated exposure control; mA and/or kV adjustment per patient size (includes targeted exams where dose is matched to clinical indication); or iterative reconstruction. FINDINGS: Posterior decompression with pedicle screws and interconnecting rods L3-S1. Interbody fusion devices with probable fusion at L4-L5 and L5-S1. Surgical appliances are intact and unchanged in position compared to 10/03/2021. There is posterior lateral bony encroachment on the thecal sac on the left at the L3-L4 level level which is unchanged compared to the previous examination. The disc has undergone significant degeneration at the L2-L3 level compared to the previous examination of 10/03/2021. Remainder the examination is unchanged. CT/CT lumbar spine wo con* [id number] IMPRESSION: Interval degeneration of the L2-L3 disc. Examination otherwise unchanged compar ed to 10/03/2021.
== END 2024-12-17 15:40 | disposition home or self-care (01) ==
LOC: RAD 15:39
PROVIDERS: PCP Family Medicine; Visit Provider Orthopaedic Surgery
DX: Z96.7 Presence of other bone and tendon implants (principal); M51.360 Other intervertebral disc degeneration, lumbar region with discogenic back pain only; M43.26 Fusion of spine, lumbar region; Z96.89 Presence of other specified functional implants; Z98.1 Arthrodesis status; T84.29 Other mechanical complication of internal fixation device of other bones; X58.XXXS Exposure to other specified factors, sequela
CPT/HCPCS: 72131

== ENCOUNTER → 2024-12-24 13:12 | Outpatient (BNVA) | payer MEDICARE, MEDICAID, SELFPAY | PROVIDERS: PCP Family Medicine; Visit Provider Podiatrist Foot & Ankle Surgery | DX: I73.9 Peripheral vascular disease, unspecified (principal); B35.1 Tinea unguium | CPT/HCPCS: 11721 ==

== ENCOUNTER → 2025-01-05 14:43 | Outpatient (BNVA) | payer MEDICARE, MEDICAID, SELFPAY | PROVIDERS: PCP Family Medicine; Visit Provider Orthopaedic Surgery | DX: M54.32 Sciatica, left side (principal); Z09 Encounter for follow-up examination after completed treatment for conditions other than malignant neoplasm | CPT/HCPCS: 99213 ==

== ENCOUNTER → 2025-01-19 10:33 | Outpatient (BNVA) | payer MEDICARE, MEDICAID, SELFPAY | PROVIDERS: PCP Family Medicine; Referring Provider Orthopaedic Surgery; Visit Provider Anesthesiology Pain Medicine | DX: M47.26 Other spondylosis with radiculopathy, lumbar region (principal); M54.50 Low back pain, unspecified; G89.29 Other chronic pain | CPT/HCPCS: 99214 ==

== ENCOUNTER → 2025-03-02 10:45 | Outpatient (BNVA) | payer MEDICARE, MEDICAID, SELFPAY | PROVIDERS: PCP Family Medicine; Visit Provider Anesthesiology Pain Medicine | DX: M47.816 Spondylosis without myelopathy or radiculopathy, lumbar region (principal); M54.16 Radiculopathy, lumbar region; G89.29 Other chronic pain | CPT/HCPCS: 99214 ==

== ENCOUNTER → 2025-03-04 13:20 | Outpatient (BNVA) | payer MEDICARE, MEDICAID, SELFPAY | PROVIDERS: PCP Family Medicine; Visit Provider Podiatrist Foot & Ankle Surgery | DX: E11.8 Type 2 diabetes mellitus with unspecified complications (principal); B35.1 Tinea unguium; I73.9 Peripheral vascular disease, unspecified | CPT/HCPCS: 11721 ==

== ENCOUNTER → 2025-03-08 11:34 | Outpatient (BNVA) | payer MEDICARE, MEDICAID, OTHER, SELFPAY | PROVIDERS: PCP Family Medicine; Visit Provider Nurse Practitioner Psychiatric/Mental Health | DX: Z79.899 Other long term (current) drug therapy (principal) | CPT/HCPCS: 80061; 83036 ==

== ENCOUNTER → 2025-03-10 14:23 | Outpatient (BNVA) | payer MEDICARE, MEDICAID, SELFPAY | PROVIDERS: PCP Family Medicine; Visit Provider Anesthesiology Pain Medicine | DX: M53.3 Sacrococcygeal disorders, not elsewhere classified (principal) | CPT/HCPCS: 77002; J3490; J9999 ==

== ENCOUNTER → 2025-03-22 10:16 | Outpatient (BNVA) | payer MEDICARE, MEDICAID, SELFPAY | PROVIDERS: PCP Family Medicine; Visit Provider Nurse Practitioner Family | DX: M47.816 Spondylosis without myelopathy or radiculopathy, lumbar region (principal); M54.16 Radiculopathy, lumbar region; G89.29 Other chronic pain | CPT/HCPCS: 99214 ==